=== PATIENT | male | born 1945 | race Caucasian/White ===

== ENCOUNTER → 2016-06-02 | Outpatient (CLI) | payer OTHER ==
[~2016-06-02] MED LIST: ALLO100T PO; APIX1TAB3 PO; ASPI81TA28 PO; DRON400T PO; INDO75CA PO; LISI-725 PO; METO25TA3 PO; METO50TA7 PO; RIVA1TAB4 PO
[2016-06-02 17:41] LABS: HEMATOCRIT 42.3 % (42-52); MEAN CELL VOLUME 87.9 fL (80-100); MEAN CORPUSCULAR HEMOGLOBIN 30.6 pg (25-34); MEAN CORPUSCULAR HGB CONC 34.8 g/dl (32-36); MEAN PLATELET VOLUME 10.6 fL (7.4-10.4); PLATELET COUNT 217 K/uL (130-400); RED BLOOD COUNT 4.81 M/uL (4.7-6.1); WHITE BLOOD COUNT 6.63 K/uL (4.8-10.8)
[2016-06-02 17:58] LABS: BLOOD UREA NITROGEN 16 mg/dl (7-18); BUN/CREATININE RATIO 11.5 (10-20); CALCIUM 8.9 mg/dl (8.5-10.1); CARBON DIOXIDE 29 mmol/L (21-32); CHLORIDE 104 mmol/L (98-107); GLUCOSE 71 mg/dl (70-99); SODIUM 140 mmol/L (136-145)
== END | disposition home or self-care (01) ==
LOC: C.LABBFT 14:36
PROVIDERS: ATTEND Internal Medicine Cardiovascular Disease
DX: I48.92 Unspecified atrial flutter (principal)

== ENCOUNTER → 2016-06-23 | Day surgery (SDC) | payer OTHER ==
[~2016-06-23] VITALS: Ht 180.3 cm; Wt 78.0 kg
[~2016-06-23] MED LIST changes: +PROPOFOL IV EMULSION 10 MG/ML 20 ML VIAL IV ONE
[2016-06-23 06:54] VITALS: BP 130/97; PULSE 115; TEMP 36.4; O2SAT 98; Ht 180.3 cm; Wt 78.0 kg
[2016-06-23 07:15] VITALS: BP 135/87; PULSE 92; O2SAT 100
[2016-06-23 07:17] VITALS: BP 97/70; PULSE 73; O2SAT 100
--- NOTE | 2016-06-23 07:18 | History & Physical Bridge Note ---
H&P Re-Evaluation Bridge Note: I have examined the patient, reviewed the History & Physical and in the interval since the performance of the History & Physical I have noted the following changes of clinical significance: No changes noted. Confirmed that there has been no interruption in anticoagulation.
[2016-06-23 07:20] VITALS: BP 100/69; PULSE 74; O2SAT 100
--- NOTE | 2016-06-23 07:22 | Cardiology Procedure Brief Nt ---
Preliminary Cardiology Note Procedure Date Jun 23, 2016. Pre-Procedure Diagnosis atrial flutter with RVR Post-Procedure Diagnosis same, converted to sinus Procedure(s) Performed DC CV Nursing Program Manager Linda Systems Integration Manager(s) none Estimated Blood Loss non Preliminary Findings 100 J synchronized converted to sinus Sedation with Dr. Ceron of Anesthesiology. 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
--- NOTE | 2016-06-23 07:26 | Discharge Instructions ---
Discharge Instructions Visit Reason for Visit: Atrial Flutter for cardioversion Discharge Discharge Diagnosis / Problem: Atrial flutter converted to sinus rhythm Discharge Goals Goal(s): Therapeutic intervention Medications Restart Stopped Medication(s): Resume your usual medications as prescribed. Activity Recommendations Activity Limitations: as noted below Anesthesia . Post Anesthesia Instructions: If you have had General Anesthesia or IV Sedation: * Do not drive today. * Resume driving when surgeon permits. * Do not make important decisions or sign legal documents today. * Call surgeon for: 1. Temperature elevations greater than 101 degrees F. 2. Uncontrollable pain. 3. Excessive bleeding. 4. Persistent nausea and vomiting. 5. Medication intolerance (nausea, vomiting or rash). * For nausea and vomiting use only clear liquids such as: tea, soda, bouillon until nausea subsides, then gradually increase diet as tolerated. * If you have any concerns or questions, call your surgeon's office. If physician is unavailable and it is an emergency, call 911 or go to the nearest emergency room. . Instructions / Follow-Up Instructions / Follow-Up ACTIVITY RECOMMENDATIONS: * May resume driving tomorrow. SPECIAL CARE: * May apply burn ointment for skin irritation. * Please contact physician for any lightheadedness, dizziness or palpitations. Diet Recommendations Recommended Home Diet: resume previous diet Procedures Procedures Performed: Electrical cardioversion Pending Studies Studies pending at discharge: no Medical Emergencies . Who to Call and When: Medical Emergencies: If at any time you feel your situation is an emergency, please call 911 immediately. . Non-Emergent Contact Non-Emergency issues call your: Hand Loom Weaver . . "Provider Documentation" section prepared by David Chen.
--- NOTE | 2016-06-23 07:48 | CARDIOVERSION ---
DATE OF OPERATION: 06/23/2016 DATE OF PROCEDURE: 06/23/2016. TIME: 8:38 a.m. PROCEDURE: Direct current cardioversion. INDICATIONS: Atrial flutter with rapid ventricular response. CONSENT: Informed written consent was obtained prior to the procedure. PROCEDURAL DETAILS: Sedation was provided by Dr. Ceron of anesthesiology. This was administered after performing a time out. Then in a synchronized fashion, 100 joules were administered and successfully converted atrial flutter to sinus rhythm. He tolerated the procedure well. Once he awakened from sedation, he was able to move all 4 extremities. He was hemodynamically stable. He had no symptoms. PLAN: Continue anticoagulation without interruption for at least 4 weeks however long-term anticoagulation will likely be continued. Continue antiarrhythmic therapy in the form of Multaq. He will followup in the office for evaluation in the next few weeks. I attest to the content of the Intraoperative Record and any orders documented therein. Any exceptio ns are noted below.
--- NOTE | 2016-06-23 07:48 | Anesthesiology Progress Note ---
Anesthesia Post Op Note Date & Time Jun 23, 2016 at 07:49 Vital Signs Pain Intensity: 0 Vital Signs Past 12 Hours Date Time Temp Pulse Resp B/P Pulse Ox O2 Delivery O2 Flow Rate FiO2 06/23/16 07:45 74 16 94/66 97 Room Air 06/23/16 07:40 74 16 97/74 96 Room Air 06/23/16 07:20 67 16 104/65 96 Room Air 06/23/16 07:20 74 16 100/69 100 Nasal Cannula 4 06/23/16 07:17 73 16 97/70 100 Nasal Cannula 4 06/23/16 07:15 92 16 135/87 100 Nasal Cannula 4 06/23/16 06:54 36.4 115 16 130/97 98 Room Air Notes Mental Status: alert / awake / arousable, participated in evaluation Pt Amnestic to Procedure: Yes Nausea / Vomiting: adequately controlled Pain: adequately controlled Airway Patency, RR, SpO2: stable & adequate BP & HR: stable & adequate Hydration State: stable & adequate Anesthetic Complications: no major complications apparent
[2016-06-23 08:30] VITALS: BP 155/95; PULSE 78; O2SAT 97
== END | disposition home or self-care (01) ==
LOC: C.CATH 06:28
PROVIDERS: ATTEND Internal Medicine Cardiovascular Disease
DX: I48.92 Unspecified atrial flutter (principal); I51.9 Heart disease, unspecified; I34.0 Nonrheumatic mitral (valve) insufficiency; E78.00 Pure hypercholesterolemia, unspecified; I10 Essential (primary) hypertension; D64.9 Anemia, unspecified; H69.80 Other specified disorders of Eustachian tube, unspecified ear; M10.9 Gout, unspecified; R31.29 Other microscopic hematuria; Z79.01 Long term (current) use of anticoagulants

== ENCOUNTER → 2017-03-23 | Outpatient (CLI) | payer OTHER ==
[~2017-03-23] MED LIST changes: -ASPI81TA28 PO; -INDO75CA PO; -METO50TA7 PO; -PROPOFOL IV EMULSION 10 MG/ML 20 ML VIAL IV ONE; -RIVA1TAB4 PO
[2017-03-23 12:17] LABS: HEMATOCRIT 44.2 % (42-52); MEAN CELL VOLUME 92.5 fL (80-100); MEAN CORPUSCULAR HGB CONC 34.6 g/dl (32-36); MEAN PLATELET VOLUME 10.2 fL (7.4-10.4); PLATELET COUNT 214 K/uL (130-400); RED BLOOD COUNT 4.78 M/uL (4.7-6.1); WHITE BLOOD COUNT 6.33 K/uL (4.8-10.8)
[2017-03-23 13:12] LABS: ALT/SGPT 37 U/L (12-78); AST/SGOT 24 U/L (15-37); BLOOD UREA NITROGEN 13 mg/dl (7-18); BUN/CREATININE RATIO 11.8 (10-20); CALCIUM 9.2 mg/dl (8.5-10.1); CARBON DIOXIDE 26 mmol/L (21-32); CHLORIDE 106 mmol/L (98-107); CREATININE 1.13 mg/dl (0.60-1.40); GLUCOSE 91 mg/dl (70-99); POTASSIUM 4.9 mmol/L (3.5-5.1); SODIUM 140 mmol/L (136-145)
== END | disposition home or self-care (01) ==
LOC: C.LABBFT 08:35
PROVIDERS: ATTEND Internal Medicine Cardiovascular Disease
DX: I10 Essential (primary) hypertension (principal); I48.92 Unspecified atrial flutter; I34.0 Nonrheumatic mitral (valve) insufficiency; I42.9 Cardiomyopathy, unspecified

== ENCOUNTER → 2017-09-05 | Outpatient (CLI) | payer OTHER ==
[2017-09-05 12:06] LABS: BASO % 0.5 %; BASO ABS # 0.03 K/uL (0-0.2); EOS % 0.8 %; EOS ABS # 0.05 K/uL (0-0.5); HEMATOCRIT 43.2 % (42-52); HEMOGLOBIN 15.6 g/dL (14.0-18.0); IG# 0.02 K/uL (0.00-0.02); LYMPH % 27.9 %; LYMPH ABS # 1.71 K/uL (1.2-3.4); MEAN CELL VOLUME 90.6 fL (80-100); MEAN CORPUSCULAR HEMOGLOBIN 32.7 pg (25-34); MEAN CORPUSCULAR HGB CONC 36.1 g/dl (32-36); MEAN PLATELET VOLUME 9.6 fL (7.4-10.4); MONO % 8.8 %; MONO ABS # 0.54 K/uL (0.11-0.59); NEUT % 61.7 %; NEUT ABS # 3.78 K/uL (1.4-6.5); PLATELET COUNT 265 K/uL (130-400); RED CELL DISTRIBUTION WIDTH CV 12.8 % (11.5-14.5); RED CELL DISTRIBUTION WIDTH SD 42.4 fL (36.4-46.3); WHITE BLOOD COUNT 6.13 K/uL (4.8-10.8)
[2017-09-05 12:51] LABS: ALBUMIN 4.2 gm/dl (3.4-5.0); ALT/SGPT 36 U/L (12-78); AST/SGOT 21 U/L (15-37); BLOOD UREA NITROGEN 16 mg/dl (7-18); CALCIUM 9.4 mg/dl (8.5-10.1); CARBON DIOXIDE 29 mmol/L (21-32); CHOLESTEROL 126 mg/dl (0-200); CREATININE 1.27 mg/dl (0.60-1.40); GLUCOSE 85 mg/dl (70-99); POTASSIUM 4.3 mmol/L (3.5-5.1); SODIUM 139 mmol/L (136-145)
[2017-09-05 12:55] LABS: ALKALINE PHOSPHATASE 93 U/L (45-117); LDL CHOLESTEROL CALCULATED 64 mg/dl; TOTAL PROTEIN 8.2 gm/dl (6.4-8.2)
== END | disposition home or self-care (01) ==
LOC: C.LABBFT 10:10
PROVIDERS: ATTEND Physician Assistant Medical
DX: I42.9 Cardiomyopathy, unspecified (principal); M10.9 Gout, unspecified; E78.00 Pure hypercholesterolemia, unspecified; Z79.899 Other long term (current) drug therapy

== ENCOUNTER 2018-09-13 06:21 | Observation (INO) ==
[2018-09-13] MEDS ORDERED: fentaNYL citrate 100 MCG/2 ML VIAL ONE (07:53)
[2018-09-13] MEDS ORDERED: MIDAZOLAM HCL 5 MG/ML 1 ML VIAL ONE (07:54)
--- NOTE | 2018-09-13 07:55 | Pre Anesthesia Assessment ---
Date of Service September 13, 2018 Pre Sedation Assessment Vital Signs Temp Pulse Resp BP Pulse Ox 09/13/18 07:06 36.7 C 111 H 16 165/113 H 98 Cardiovascular + tachycardic Respiratory + respiratory effort normal Pre-Sedation Airway Assessment Smoking Status: Never smoker Hx Sleep Apnea: No Hx Difficult Intubation: No Short, Thick Neck: No Thyromental Distance: > or= 3.5 Finger Breadths Oral Cavity: + WNL Mallampati Class: III ASA: ASA3 NPO Status Date of Last Intake of Fluids: 09/12/18 Time of Last Intake of Fluids: 18:00 Date of Last Intake of Solid Food: 09/12/18 Time of Last Intake of Solid Foods: 18:00 Procedure Planning Contraindications for Sedation: none Current Medications Reviewed: Yes Notes The planned sedation has been discussed with the patient. Informed Consent was obtained. I have identified the patient, determined the appropriateness of sedation and have assessed the patient immediately prior to the procedure. All medicine(s) and interventions are by my order.
[2018-09-13] MEDS ORDERED: HEPARIN SOD (PORCINE) 1000 UNIT/ML 10 ML VIAL ONE (08:24)
[2018-09-13] MEDS ORDERED: ISOPROTERENOL 200 MCG / 50ML D5W IV ONE (09:23)
--- NOTE | 2018-09-13 09:47 | Post Operative Brief Note ---
Cardiology Brief Post Op Date of Surgery September 13, 2018 Pre & Post Diagnosis Operation Date: 09/13/18 07:30 <No data on this case meets the specified criteria> Procedure EPS and ablation of typical right atrial flutter from right femoral danni access Porcelain Technician Ankush Tobin MD Marketing Proposal Specialist none Estimated Blood Loss 10 Findings Consistent with Post-Op Diagnosis Typical right atrial isthmus-dependent flutter some reduced AV todd conduction no inducible ischemia at the conclusion of the case Complications none Disposition Accompanied Patient To Recovery: No Disposition: PCU Overlapping Procedure I was immediately available: during the entire case.
[2018-09-13] MEDS ORDERED: ACETAMINOPHEN 325 MG TAB PO PRN (09:48)
[2018-09-13] MEDS ORDERED: OXYCODONE HCL IR 5 MG TAB (IMMEDIATE RELEASE) PO PRN (11:31)
--- NOTE | 2018-09-13 15:56 | Procedure Note ---
Procedure Note Date of Service September 13, 2018 Note Procedure performed: Ablation of SVT, complete electrophysiologic testing including pacing from the left atrium via the coronary sinus, 3 dimensional electro anatomical mapping of tachycardia, program stimulation on and off isoproterenol for arrhythmia induction Staff drone operator: Ankush Tobin MD Indication: The patient is a 73-year-old gentleman with a history of atrial flutter who presents for electrophysiologic testing and possible ablation Procedure in detail: The patient was informed of the risks benefits and alternatives to the intended procedure. He understood which proceed. He was taken to the electrophysiology suite in a fasting state. Conscious sedation was administered per protocol the patient was monitored electrocardiographically throughout today's procedure. The right femoral area was prepped and draped in usual sterile fashion. This area was anesthetized using subcutaneous administration of lidocaine solution. The right femoral vein was then accessed 3 times using modified Selinger technique. Sheaths were placed over guidewires at this site used to facilitate passage of the EP catheters to the respective chambers under fluoroscopic guidance. This included right ventricular coronary sinus and roving right atrial catheter. Electro anatomical mapping was then performed in order to reduce the mechanism of the arrhythmia. Once identified radiofrequency lesions were placed in a linear fashion through the caval tricuspid isthmus until the tachycardia terminated. Repeat electro anatomical mapping as well as baseline testing and program stimulation on and off isoproterenol for arrhythmia induction was then performed. At the conclusion of the case the sheaths and catheters were removed. Hemostasis was achieved at the access sites using manual pressure. The patient tolerated procedure well. There were no immediate complications. Findings: Tachycardia cycle length was 260 milliseconds Electro anatomical mapping revealed activation company nearly the entire cycle length in the right atrium. There appeared to be a counter-clockwise typical right atrial flutter. Concealed atrial entrainment was achieved from both the medial and lateral caval tricuspid isthmus Manifest entrainment with a long post pacing interval was noted with pacing from the distal coronary sinus Ablation: And irrigated 3.5 millimeter radiofrequency ablation catheter was advanced to the area of the cava tricuspid isthmus. Lesions were placed in a linear fashion through the caval tricuspid isthmus in a power limited mode until the tachycardia terminated. Repeat electro anatomical mapping as well as differential pacing from both the medial lateral aspects of the caval tricuspid isthmus suggested bidirectional block through the caval tricuspid isthmus Post ablation intervals: Cycle length in the atrium 930 milliseconds Cycling his the ventricle 932 milliseconds SC interval 176 milliseconds QRS duration 80 milliseconds QT interval 430 milliseconds corrected QT interval 445 AH interval 126 milliseconds HV interval 44 milliseconds AV Wenckebach in the baseline state occurred at 520 milliseconds There was no significant retrograde conduction with pacing from the ventricle Programmed stimulation revealed the AV node effective refractory period to be 470 milliseconds Arrhythmia induction: None to ablation attempted arrhythmia induction was performed with pacing from both the medial and lateral aspects of the caval tricuspid isthmus using burst atrial pacing down to cycle length of 240 milliseconds. This was performed on and off isoproterenol. No tachycardia was inducible. Impression: Successful creation of bidirectional block through the caval tricuspid isthmus rendering typical isthmus dependent right atrial flutter noninducible Prolonged refractoriness of the AV node in the baseline sedated state with some improvement on isoproterenol Normal baseline intracardiac intervals No evidence of dual AV node physiology or accessory pathway conduction No retrograde conduction in the baseline state Coding
--- NOTE | 2018-09-13 16:04 | Discharge Summary ---
Date of Service September 13, 2018 Admission HPI Patient is a 73-year-old gentleman with a history of atrial flutter who presents for electrophysiologic testing and possible ablation Principal Diagnosis Principal Diagnosis Atrial flutter Discharge Exam Evaluation of the femoral access site a not reveal any evidence of bleeding or hematoma Discharge Data Allergies Allergy/AdvReac Type Severity Reaction Status Date / Time No Known Allergies Allergy Unverified 03/11/16 06:40 Procedures Performed Operation Date: 09/13/18 07:30 Actual Procedures p EPS + Ablation for SVT Flutter - Hima Tobin MD s 3D Mapping (Carto) - Hima Tobin MD s LA Pacing (Add-On) - MD sherice Johnson Drug Stimulation - Hima Tobin MD Ordered Studies 09/13/18 06:46 CL Cath Imgs for PACS use only Routine 09/13/18 07:00 EP Lab Images for PACS ONCE Hospital Course (1) Atrial flutter: Patient underwent electrophysiologic testing and ablation typical isthmus dependent right atrial flutter. There were no inducible arrhythmias at the conclusion of the case and there appeared to be bidirectional block through the caval tricuspid isthmus. Subsequent to the procedure the patient was supine for 4 hours and later ambulated without evidence of bleeding at the access site. He was discharged home with instructions to refrain from lifting anything over 10 pounds for period of 5 days. He will follow up in our office in a period of 1 month. He will resume all his medications including his anticoagulation tomorrow morning. Total Time Total Time Spent Total Time Spent (In Minutes): 10 Discharge Plan Discharge Items Patient Disposition: Home - Self-Care Reason For Visit: Atrial Flutter Discharge Diagnosis: Atrial flutter Condition: Good Discharge Goals: Therapeutic intervention Activity: Per 'Additional Instructions' section Lifting: No more than 10 pounds Lifting Comment: No lifting >10# for 5 days Bathing: No limitations Driving/Machine Use: Resume 1 day after discharge Non-emergency contact: Retail Loss Prevention Investigator Call non-emergency contact if: you have any medication questions Follow-up/Referrals: Hima Esteves MD [Primary Care Provider] - Diet: Heart Healthy Addtl Provider Instructions: Start Eliquis again tomorrow Prescriptions: Continued ALLOPURINOL (ZYLOPRIM) 100 MG tablet 2 tab PO DAILY 30 Days Qty: 60 RF: 5 Lisinopril (Zestril) 20 MG tablet 20 mg PO DAILY Qty: 0 RF: 0 APIXABAN (ELIQUIS) 5 MG tablet 5 mg PO BID Qty: 0 RF: 0 Metoprolol Succ (Toprol Xl) (Toprol-Xl) 25 MG HFYUS-CCW-ABM 50 mg PO DAILY Qty: 30 RF: 0 atorvastatin 20 mg Tablet 20 mg PO DAILY RF: 0 ciclopirox 8 % Solution 1 applic TOPICAL HS RF: 0 Stand-Alone Forms: [facility] Discharge Orders: Discharge Order (Routine); Ordered 09/13/18 Ordered By: Hima Tobin Admission Data Admit Date/Time: 09/13/18 09:48 Attending Provider: Hima Tobin Admit Provider: Hima Tobin Primary Care Provider: Hima Esteves Service: Telemetry Other Interventions: Discharge Summary Assessment (RN) Last Done: 09/13/18 15:05 DC Date/Time DO NOT enter until pt leaves facility: 09/13/18 15:46
== END 2018-09-13 15:46 | disposition home or self-care (01) ==
LOC: ASU 06:21 → 2S 06:21

== ENCOUNTER 2019-03-14 10:15 | Inpatient (IN) ==
[2019-03-14] MEDS ORDERED: METOPROLOL TARTRATE 1 MG/ML VIAL IV PRN ×3 (10:27→19:42)
[2019-03-14] MEDS ORDERED: SODIUM CHLORIDE 0.9% 500 ML IV SCH (10:30)
[2019-03-14] MEDS ORDERED: ADENOSINE IV SOLN 3 MG/ML 2 ML VIAL IV ONE (10:32)
[2019-03-14 11:45] LABS: Basophils # (auto) 0.01 K/uL (0-0.2); Basophils % (auto) 0.1 %; Eosinophils # (auto) 0.02 K/uL (0-0.5); Eosinophils % (auto) 0.2 %; Hematocrit (blood only) 44.5 % (42-52); Hemoglobin 15.8 g/dL (14.0-18.0); Immature Granulocytes # (auto) 0.03 K/uL (0.00-0.02); Immature Granulocytes % (auto) 0.4 %; Lymphocytes # (auto) 1.35 K/uL (1.2-3.4); Lymphocytes % (auto) 16.6 %; Mean Corpuscular Hemoglobin 32.2 pg (25-34); Mean Corpuscular Hgb Conc 35.5 g/dL (32-36); Mean Corpuscular Volume 90.6 fL (80-100); Mean Platelet Volume 9.9 fL (7.4-10.4); Monocytes # (auto) 0.97 K/uL (0.11-0.59); Monocytes % (auto) 11.9 %; Neutrophils # (auto) 5.77 K/uL (1.4-6.5); Neutrophils % (auto) 70.8 %; Platelet Count 233 K/uL (130-400); RDW Coefficient of Variation 12.9 % (11.5-14.5); RDW Standard Deviation 42.5 fL (36.4-46.3); Red Blood Count 4.91 M/uL (4.7-6.1); White Blood Count 8.15 K/uL (4.8-10.8)
[2019-03-14 11:50] LABS: Albumin Level 3.7 gm/dl (3.4-5.0); BUN Creatinine Ratio 12.3 (10-20); Calcium 8.9 mg/dl (8.5-10.1); Creatinine Clr Calc Pharmacy 47.3 ml/min; Est GFR (African American) 54.1; Est GFR (Non-African American) 46.7; Magnesium 2.1 mg/dl (1.8-2.4); Potassium 4.7 mmol/L (3.5-5.1)
[2019-03-14 12:03] LABS: Albumin Globulin Ratio 0.9 (0.9-2); Bilirubin,Total 0.8 mg/dl (0.2-1); Globulin 3.9 gm/dl (2.5-4.0); Phosphorus 2.4 mg/dl (2.5-4.9); Thyroid Stimulating Hormone 1.93 uIu/ml (0.300-4.500); Total Protein 7.6 gm/dl (6.4-8.2); Troponin I 0.086 ng/ml (0-0.045)
[2019-03-14] MEDS ORDERED: SODIUM CHLORIDE 0.9% 1000ML 500 ML IV ONE (12:11)
[2019-03-14] MEDS ORDERED: METOPROLOL SUCC 50MG EXT REL TAB PO STA (12:11)
[2019-03-14] MEDS ORDERED: ASPIRIN CHEW 324 MG PO STA (12:39)
[2019-03-14] MEDS ORDERED: ACETAMINOPHEN 325 MG TAB PO PRN (14:22)
--- NOTE | 2019-03-14 14:38 | History & Physical Report ---
Date of Service March 14, 2019 Assessment & Plan (1) Atrial flutter: Appears to be an atrial flutter to me. EKGs shows various rates of 100, 150, and 200. No clear atrial flutter waves, but EKGs are fairly low amplitude. EKGs do show ST depressions in the lateral leads when the HR is going 150 and 200 bpm. Presently, HR is ~100 bpm and fairly steady. - Will get one additional troponin to rule out acute coronary event, though I think it is unlikely given his lack of symptoms. - Consult Dr. Tobin for further evaluation and treatment - Metoprolol PRN (2) Confusion: Somewhat unclear pair of episodes with the patient's stating he was speaking gibberish and shaking. Both spontaneously resolved. No loss of consciousness and no noted focal deficits during the spells. Ddx includes seizure vs. TIA; however, I believe that transient hypotension from his fast HR is the most likely cause. Presently back to baseline. - Monitor in the context of his HR and BP (3) GENE (acute kidney injury): Baseline Cr ~1.1, Cr up to 1.45 on admission. Pre-renal vs. concern for ATN if he had a transient episode of hypotension from his fast rate. - Received 1.5 L of IV fluids in the ED - Mental status normal; I believe he can remain hydrated on his own and as long as HR is ~100, his perfusion appears fine. - Trend Cr (4) Hypertension: Normally well-controlled. Presently 144/105 in chart. Was 115/80 while I was in the room. - Hold home lisinopril for GENE - Continue beta-beth - Monitor (5) Hyperlipemia: - Continue home med (6) Gout: - Continue home med (7) DVT prophylaxis: On apixaban for his atrial flutter History of Present Illness Primary Care Provider: Ankush Esteves MD 74yo M w/ hx of HTN, gout, and aflutter s/p ablation who presents with possible return of aflutter. He was in his normal state of health this morning, when he had a spell while sitting with his . She reports that he tried to respond to something she said, but spoke in gibberish instead of intelligible speech and that he also had some tremors at the time. The episode lasted for a few minutes, then resolved. He had another episode that was less severe and lasted a shorter duration as well. The reports that he never lost consciousness and never had any fall with the two episodes. They called an ambulance after speaking with their PCP's RN. The paramedics found him to be in a fast SVT with rates as high as 180, and pushed adenosine which resulted in his HR going down to ~100. In the ED, his HR went up to 200 again with another push of adenosine which caused his rate to stay ~100 bpm. He feels well at this point and denies any loss of consciousness, chest pain, palpitations, shortness of breath, dizziness, diaphoresis, or other symptoms. He has only a vague recollection of these episodes, thinking they were yesterday instead of this morning. Allergies Allergy/AdvReac Type Severity Reaction Status Date / Time No Known Allergies Allergy Verified 03/14/19 11:04 Home Medications Home Medications Medication Instructions Recorded Confirmed Type allopurinol 100 mg tablet 200 mg PO DAILY #180 tab 12/25/18 03/14/19 History atorvastatin 20 mg tablet 20 mg PO QPM tab 12/25/18 03/14/19 History lisinopril 20 mg tablet 20 mg PO DAILY #90 tab 12/25/18 03/14/19 History metoprolol succinate ER 50 mg 50 mg PO DAILY tab 12/25/18 03/14/19 History tablet,extended release 24 hr apixaban [Eliquis] 5 mg PO BID 03/14/19 03/14/19 History Past Med/Surg History Medical History Atrial flutter Gout Hyperlipemia Hypertension Surgical History H/O cardiac radiofrequency ablation Family History Father Gout Social History Preferred Language: Armenian Communication Ability: Effective Efficiency Analyst Required: No Beliefs That Will Affect Care: None Current Living Situation: Spouse Other Information That Helps Us Care for You: No Feels Safe at Home: Yes Safety Concerns: Feels Safe At This Time Smoking Status: Never smoker Do You Dip or Chew Tobacco: No ; Second Hand Exposure: No ; Tobacco Cessation Education Requested by Patient: No Hx Alcohol Use: Yes Alcohol type: beer Hx Substance Use: No Review of Systems Review of Systems: All systems reviewed & are unremarkable except as noted in HPI & below Physical Exam Constitutional: WD/WN, vitals as above Eyes: EOM intact bilaterally; no conjunctival abnormality ENMT: external ear and nose normal, oropharynx normal Neck: trachea midline, no thyromegaly normal visual inspection Respiratory: normal respiratory effort, lungs clear to auscultation no respiratory distress Cardiovascular: Rate/Rhythm: regular rhythm and + tachycardic Heart Sounds: normal S1 and normal S2; no murmur Vessels: no JVD Extremities: no edema Gastrointestinal (Abdomen): Inspection/Auscultation: abdomen normal to inspe ction; abdomen not distended Musculoskeletal: no cyanosis or clubbing, extremities motor strength 5/5 Skin: no rashes, warm and dry Neurologic: moves all extremities and awake Psychiatric: Orientation: alert, oriented to person and cooperative Results & Data Vital Signs (Past 12 Hours) Vital Signs Temp Pulse Resp BP Pulse Ox 03/14/19 13:45 90 13 117/78 03/14/19 13:31 104 H 19 03/14/19 13:30 105 H 19 140/97 03/14/19 13:15 100 H 14 110/72 03/14/19 13:00 105 H 21 146/92 H 03/14/19 12:45 104 H 18 116/65 03/14/19 12:30 103 H 20 101/68 03/14/19 12:16 105 H 16 03/14/19 12:15 103 H 18 117/76 03/14/19 12:01 103 H 20 03/14/19 12:00 103 H 13 96/77 L 03/14/19 11:45 103 H 10 L 116/78 100 03/14/19 11:31 102 H 17 100 03/14/19 11:30 102 H 13 103/75 100 03/14/19 11:15 101 H 15 106/90 100 03/14/19 11:01 102 H 17 100 03/14/19 11:00 101 H 10 L 116/78 100 03/14/19 10:45 103 H 13 118/83 97 03/14/19 10:42 104 H 15 124/81 100 03/14/19 10:30 195 H 22 93 03/14/19 10:23 197 H 16 96 03/14/19 10:22 200 H 18 93/73 L 03/14/19 09:57 37.1 C 200 H 16 93/73 L 100 PG Care Time/CCT Total # of Minutes Spent Total Time Spent with Patient: Total time spent is greater than 50% in coordination of care (as documented) at patient's floor/unit and/or counseling patient:
[2019-03-14] MEDS ORDERED: INFLUENZA VACCINE HIGH DOSE 65+ 0.5 ML SYR IM ONE (16:15)
[2019-03-14] MEDS ORDERED: INFLUENZA ADMINISTRATION CHARGE ONE (16:15)
[2019-03-14] MEDS: POT PHOSPHATE MONOBASIC W/ SOD TAB PO SCH ×2 (16:40→20:32)
--- NOTE | 2019-03-14 16:40 | Cardiology Consultation ---
Date of Consultation March 14, 2019 Assessment & Plan (1) SVT (supraventricular tachycardia): Patient's initial arrhythmia was narrow complex and quite rapid. He did not respond to adenosine but did appear to respond to beta-blockers or possibly simply degenerated into what appears to be in atrial fibrillation. It is very possible that the initial arrhythmia represented an atrial flutter. Whether this is an isthmus dependent right atrial flutter cannot be determined by the tracing. The heart rate is unusual for atypical right atrial flutter. It is possible the prior ablation of the cavo-tricuspid isthmus resulted in development of substrate for other right atrial flutters. It is also possible outpatient record that he may have had more than 1 atrial arrhythmia leading up to his ablation. He now seems to be in a rhythm more consistent with atrial fibrillation. It is possible that this also represents an atypical atrial flutter. Whether he has had some additional atrial arrhythmias over the past few months is unclear. Currently his heart rate is not very high. He certainly is not symptomatic from the current arrhythmia. It is possible that he goes in and out of rhythm problems or has had some sustained arrhythmia for few months that has not been identified. At this point would seem reasonable to continue him on metoprolol, perhaps at a slightly higher dose. I think I would advocate for metoprolol succinate 75 mg per day taken possibly a 50 mg in the morning and 25 mg in the evening. He appears to have been continued on Eliquis since the time of his ablation. This may often opportunity for cardioversion tomorrow if he is not return to sinus rhythm on his own. Going forward I think we will need to identify symptoms associated with his arrhythmias prior to more aggressive therapy. If he continues to have his current arrhythmia and controlled rate, perhaps no additional intervention is required other than beta-blockers and anticoagulation. (2) Elevated troponin: Mildly elevated. On doubt early related to demand ischemia given his rapid heart rate in the only mild elevation. This will be monitored overnight. Do not believe he requires any additional treatment currently. No current chest pain. History of Present Illness Reason for Consultation: Tachycardia Requesting Physician: Andrea Attending Physician: William Mendez MD History of Present Illness The patient is a 74-year-old gentleman with a history atrial flutter who underwent catheter based therapy in September 2018. Since that time the patient has not had any clinical recurrence of atrial arrhythmias. It seems that this morning the patient developed some unusual symptoms noticed by his . Unfortunately, the patient has an element of dementia and was not able to provide a reliable history. History was primarily provided by his and son. It seems that after breakfast the patient developed some confused speech. According to his he through his head back and later begin have some shaking. He did not lose consciousness. He was responsive but she had difficulty understanding his speech. Patient appeared to be unwell and she eventually contacted 1st responders who discovered him to be tachycardic. Patient did report some symptoms of dizziness. He did not endorse symptoms of chest discomfort or a sense of a racing heartbeat. He did not endorse symptoms of dyspnea. According to his family the patient has been active recently. He does some yd work and has an element of fatigue but did not appear to have other symptoms of exertional chest pain or dyspnea. There has been no documentation of other episodes of tachycardia. He did endorse some symptoms of dizziness at times, but there does not appear to have been any syncope or sense of palpitations. It seems that when EMS arrived he was in a tachycardia. The patient was administered adenosine in route without effect. In the emergency room he was administered beta-blockade with an acute transition in his heart rate. Cur rently he is feeling well. He states that he is feeling 90% but could not characterize this statement any further. Allergies Allergy/AdvReac Type Severity Reaction Status Date / Time No Known Allergies Allergy Verified 03/14/19 11:04 Home Medications Home Medications Medication Instructions Recorded Confirmed Type allopurinol 100 mg tablet 200 mg PO DAILY #180 tab 12/25/18 03/14/19 History atorvastatin 20 mg tablet 20 mg PO QPM tab 12/25/18 03/14/19 History lisinopril 20 mg tablet 20 mg PO DAILY #90 tab 12/25/18 03/14/19 History metoprolol succinate ER 50 mg 50 mg PO DAILY tab 12/25/18 03/14/19 History tablet,extended release 24 hr apixaban [Eliquis] 5 mg PO BID 03/14/19 03/14/19 History Patient History Medical History Atrial flutter Gout Hyperlipemia Hypertension Surgical History H/O cardiac radiofrequency ablation Family History Father Gout Social History Preferred Language: Cameroonian Communication Ability: Effective Multifocal Button Generator Required: No Beliefs That Will Affect Care: None Current Living Situation: Spouse Feels Safe at Home: Yes Smoking Status: Never smoker Second Hand Exposure: No ; Hx Alcohol Use: Yes Alcohol type: beer Hx Substance Use: No Review of Systems Review of Systems: Unobtainable due to cognitive status Physical Exam Physical Exam: The patient is alert and oriented. Mood and affect appeared normal. He answered all questions appropriately. HEENT: Pupils are equal and reactive to light and accommodation. Extraocular movements are intact. The sclerae are anicteric. Neuro: Cranial nerves intact Neck: Patient's neck is supple. He has palpable carotid pulses bilaterally without bruits on auscultation. There is no evidence of jugular venous distention. The thyroid is not enlarged. Lungs: Clear to auscultation bilaterally. He has good air movement without use of accessory muscles. No rales wheezes or rhonchi. Cardiac: Heart demonstrates an irregular rate and rhythm. Normal S1 and S2. No murmurs on examination. Pulses: The patient has palpable radial pulses bilaterally that are equal in intensity Extremities: There was no evidence of hypoperfusion. There is no cyanosis or clubbing. There is no edema. Skin: I did not appreciate any rashes on examination today. Results & Data Vital Signs (Past 12 Hours) Vital Signs Temp Pulse Pulse Resp BP BP Pulse Ox 03/14/19 14:27 106 H 20 144/104 H 97 03/14/19 13:45 90 13 117/78 03/14/19 13:31 104 H 19 03/14/19 13:30 105 H 19 140/97 03/14/19 13:15 100 H 14 110/72 03/14/19 13:00 105 H 21 146/92 H 03/14/19 12:45 104 H 18 116/65 03/14/19 12:30 103 H 20 101/68 03/14/19 12:16 105 H 16 03/14/19 12:15 103 H 18 117/76 03/14/19 12:01 103 H 20 11/07/19 12:00 103 H 13 96/77 L 03/14/19 11:45 103 H 10 L 116/78 100 03/14/19 11:31 102 H 17 100 03/14/19 11:30 102 H 13 103/75 100 03/14/19 11:15 101 H 15 106/90 100 03/14/19 11:01 102 H 17 100 03/14/19 11:00 101 H 10 L 116/78 100 03/14/19 10:45 103 H 13 118/83 97 03/14/19 10:42 104 H 15 124/81 100 03/14/19 10:30 195 H 22 93 03/14/19 10:23 197 H 16 96 03/14/19 10:22 200 H 18 93/73 L 03/14/19 09:57 37.1 C 200 H 16 93/73 L 100 Laboratory Results Abnormal Lab Results 03/14/19 03/14/19 10:33 10:33 WBC 8.15 RBC 4.91 Hgb 15.8 Hct 44.5 MCV 90.6 MCH 32.2 MCHC 35.5 RDW Std Deviation 42.5 RDW Coeff of [place] 12.9 Plt Count 233 MPV 9.9 Immature Gran % (Auto) 0.4 Neut % (Auto) 70.8 Lymph % (Auto) 16.6 [place] % (Auto) 11.9 Eos % (Auto) 0.2 Baso % (Auto) 0.1 Immature Gran # (Auto) 0.03 H Neut # (Auto) 5.77 Lymph # (Auto) 1.35 [place] # (Auto) 0.97 H Eos # (Auto) 0.02 Baso # (Auto) 0.01 Sodium 140 Potassium 4.7 Chloride 108 H Carbon Dioxide 27 Anion Gap 5.0 BUN 18 Creatinine 1.46 H Est Cr Clr Drug Dosing 47.3 Est GFR ( Amer) 54.1 Est GFR (Non-Af Amer) 46.7 BUN/Creatinine Ratio 12.3 Glucose 115 H Calcium 8.9 Phosphorus 2.4 L Magnesium 2.1 Total Bilirubin 0.8 AST 25 ALT 27 Alkaline Phosphatase 88 Troponin I 0.086 H* Total Protein 7.6 Albumin 3.7 Globulin 3.9 Albumin/Globulin Ratio 0.9 TSH 1.930 ECG Additional Comments: I reviewed the source images of his EKGs. PG Care Time/CCT Total # of Minutes Spent Total Time Spent with Patient: Total time spent is greater than 50% in coordination of care (as documented) at patient's floor/unit and/or counseling patient:
--- NOTE | 2019-03-14 17:14 | Emergency Department Note ---
Entered by Lynette Smith acting as a scribe for History of Present Illness General Chief complaint: Tachycardia Time Seen by Provider: 03/14/19 10:18 Source: patient History of Present Illness Provider complaint: light headedness Onset (ago): hour(s) 2 Location: head Radiation: non-radiation Pain Consistency: + constant Associated symptoms: + denies other symptoms; no chest pain, no nausea/vomiting and no shortness of breath The patient is a 74 y/o male with a past medical history of atrial flutter and cardio ablation, who presents to the emergency department via EMS for evaluation of constant light headedness and fatigue that began 2 hours ago. The patient states that he did not feel the palpation or heart racing today. EMS notes that they were unable to control his rate. The patient reports he is on blood thinners. His past medical history notes he had an EP study and cardio ablation 09/13/[address] Tobin[facility] cardiology. The patient denies shortness of breath, diet changes, chest pain, nausea, vomiting, and any other symptoms. Home Medications Home Medications Medication Instructions Recorded Confirmed Type allopurinol 100 mg tablet 200 mg PO DAILY #180 tab 12/25/18 03/14/19 History atorvastatin 20 mg tablet 20 mg PO QPM tab 12/25/18 03/14/19 History lisinopril 20 mg tablet 20 mg PO DAILY #90 tab 12/25/18 03/14/19 History metoprolol succinate ER 50 mg 50 mg PO DAILY tab 12/25/18 03/14/19 History tablet,extended release 24 hr apixaban [Eliquis] 5 mg PO BID 03/14/19 03/14/19 History Allergies Allergy/AdvReac Type Severity Reaction Status Date / Time No Known Allergies Allergy Verified 03/14/19 11:04 Past Med/Surg History Medical History Atrial flutter Gout Hyperlipemia Hypertension Surgical History H/O cardiac radiofrequency ablation Family History Father Gout Social History Preferred Language: Kittitian Communication Ability: Effective Stove Cleaner Required: No Beliefs That Will Affect Care: None Current Living Situation: Spouse Feels Safe at Home: Yes Smoking Status: Never smoker Second Hand Exposure: No ; Hx Alcohol Use: Yes Alcohol type: beer Hx Substance Use: No Review of Systems See HPI for pertinent positives & negatives. and A total of 10 systems reviewed and were otherwise negative Physical Exam Vital Signs Vital Signs - 24 hr 03/14/19 09:57 03/14/19 10:22 03/14/19 10:23 Temperature 37.1 C Temperature Source Oral Sepsis Recent Fever Within 48 Hours No Sepsis Action Taken by Nursing No Action Required Pulse Rate 200 H 200 H 197 H Pulse Rate from SpO2 Sensor 103 H Respiratory Rate 16 18 16 Blood Pressure 93/73 L 93/73 L Blood Pressure Mean 79 79 Blood Pressure Position Sitting Pulse Oximetry 100 96 Oxygen Delivery Method Nasal Cannula Oxygen Flow Rate 2 03/14/19 10:26 03/14/19 10:30 03/14/19 10:42 Temperature Temperature Source Sepsis Recent Fever Within 48 Hours Sepsis Action Taken by Nursing Pulse Rate 195 H 104 H Pulse Rate from SpO2 Sensor 99 H 104 H Respiratory Rate 22 15 Blood Pressure 124/81 Blood Pressure Mean 95 Blood Pressure Position Pulse Oximetry 93 100 Oxygen Delivery Method Room Air Oxygen Flow Rate 03/14/19 10:45 03/14/19 11:00 03/14/19 11:01 Temperature Temperature Source Sepsis Recent Fever Within 48 Hours Sepsis Action Taken by Nursing Pulse Rate 103 H 101 H 102 H Pulse Rate from SpO2 Sensor 101 H 102 H 103 H Respiratory Rate 13 10 L 17 Blood Pressure 118/83 116/78 Blood Pressure Mean 94 90 Blood Pressure Position Pulse Oximetry 97 100 100 Oxygen Delivery Method Oxygen Flow Rate 03/14/19 11:15 03/14/19 11:30 03/14/19 11:31 Temperature Temperature Source Sepsis Recent Fever Within 48 Hours Sepsis Action Taken by Nursing Pulse Rate 101 H 102 H 102 H Pulse Rate from SpO2 Sensor 101 H 103 H 101 H Respiratory Rate 15 13 17 Blood Pressure 106/90 103/75 Blood Pressure Mean 95 84 Blood Pressure Position Pulse Oximetry 100 100 100 Oxygen Delivery Method Oxygen Flow Rate 03/14/19 11:45 03/14/19 12:00 03/14/19 12:01 Temperature Temperature Source Sepsis Recent Fever Within 48 Hours Sepsis Action Taken by Nursing Pulse Rate 103 H 103 H 103 H Pulse Rate from SpO2 Sensor 102 H Respiratory Rate 10 L 13 20 Blood Pressure 116/78 96/77 L Blood Pressure Mean 90 83 Blood Pressure Position Pulse Oximetry 100 Oxygen Delivery Method Oxygen Flow Rate 03/14/19 12:15 03/14/19 12:16 03/14/19 12:30 Temperature Temperature Source Sepsis Recent Fever Within 48 Hours Sepsis Action Taken by Nursing Pulse Rate 103 H 105 H 103 H Pulse Rate from SpO2 Sensor Respiratory Rate 18 16 20 Blood Pressure 117/76 101/68 Blood Pressure Mean 89 79 Blood Pressure Position Pulse Oximetry Oxygen Delivery Method Oxygen Flow Rate 03/14/19 12:45 03/14/19 13:00 Temperature Temperature Source Sepsis Recent Fever Within 48 Hours Sepsis Action Taken by Nursing Pulse Rate 104 H 105 H Pulse Rate from SpO2 Sensor Respiratory Rate 18 21 Blood Pressure 116/65 146/92 H Blood Pressure Mean 82 110 Blood Pressure Position Pulse Oximetry Oxygen Delivery Method Oxygen Flow Rate GENERAL: Well appearing, well nourished, NAD, non-toxic. EYE EXAM: Normal conjunctiva. PERRL, no anisocoria and EOM's grossly intact w/o pain. OROPHARYNX: Moist mucus membranes. Grossly normal dentition. NECK: Supple, no nuchal rigidity, no adenopathy, non-tender. No signs of meningismus. LUNGS: Clear to auscultation. Normal chest wall mechanics. HEART: Tachycardic with regular rhythm. ABDOMEN: Abdomen soft, non-tender, normo-active bowel sounds, no masses, no rebound or guarding. BACK: No CVA TTP. SKIN: No rashes and no bruising. UPPER EXTREMITIES: Upper extremities are grossly normal. LOWER EXTREMITIES: No pitting edema. No calf pain. NEURO EXAM: A&O x3, cranial nerves II-XII grossly intact, normal speech, moves all 4 extremities on command w/o issue. Course 1021: Past medical records reviewed. The patient was evaluated in room A09. A complete history and physical exam was performed. 1205: I checked on the patient and he is feeling a bit better. 1237: I spoke with Dr. Mendez- [facility] hospitalist. He will evaluate for further management. 1300: I updated the patient on the treatment plan. Administered Medications Potassium Phosphate (Phospha 250 Neutral [id number] Mg) 1 tab PO QID YASMINE Stop: 03/15/19 16:59 Last Admin: 03/14/19 16:40 Dose: 1 tab Documented by: [id number] Discontinued Medications Adenosine (Adenosine) Confirm Administered Dose 30 mg IV .STK-MED ONE Stop: 03/14/19 10:33 Last Admin: 03/14/19 10:55 Dose: Not Given Documented by: [id number] Aspirin (Aspirin) 324 mg PO NOW STA Stop: 03/14/19 12:40 Last Admin: 03/14/19 13:24 Dose: 324 mg Documented by: [id number] Sodium Chloride (Nss) 500 mls @ 999 mls/hr IV .Q31M YASMINE Stop: 03/14/19 11:00 Last Infusion: 03/14/19 11:15 Dose: 0 mls/hr Documented by: [id number] Admin: 03/14/19 10:43 Dose: 999 mls/hr Documented by: [id number] Sodium Chloride (Nss 1000ml) 500 mls @ 999 mls/hr IV .Q31M ONE Stop: 03/14/19 12:41 Last Infusion: 03/14/19 14:07 Dose: 0 mls/hr Documented by: [id number] Admin: 03/14/19 13:24 Dose: 999 mls/hr Documented by: [id number] Metoprolol Succinate (Toprol Xl) 50 mg PO NOW STA Stop: 03/14/19 12:12 Last Admin: 03/14/19 13:24 Dose: 50 mg Documented by: [id number] Metoprolol Tartrate (Lopressor) 5 mg IV Q5M PRN PRN Reason: Tachycardia Stop: 04/13/19 10:26 Last Admin: 03/14/19 10:43 Dose: 5 mg Documented by: [id number] Medical Decision Making Differential Diagnosis Differential diagnosis includes etiologies such as premature contractions, electrolyte abnormality, cardiac dysrhythmia, thyroid dysfunction, pulmonary embolism, infection, gastrointestinal, as well as others were entertained. Medical Records Attestation: I reviewed the patient's medical records. Home Medications Current Medication List: was personally reviewed by me Laboratory Data Attestation: I reviewed the patient's lab results. Result diagrams: 03/14/19 10:33 03/14/19 10:33 Lab Results 03/14/19 03/14/19 Range/Units 10:33 10:33 WBC 8.15 (4.8-10.8) K/uL RBC 4.91 (4.7-6.1) M/uL Hgb 15.8 (14.0-18.0) g/dL Hct 44.5 (42-52) % MCV 90.6 (80-100) fL MCH 32.2 (25-34) pg MCHC 35.5 (32-36) g/dL RDW Std Deviation 42.5 (36.4-46.3) fL RDW Coeff of [place] 12.9 (11.5-14.5) % Plt Count 233 (130-400) K/uL MPV 9.9 (7.4-10.4) fL Immature Gran % (Auto) 0.4 % Neut % (Auto) 70.8 % Lymph % (Auto) 16.6 % [place] % (Auto) 11.9 % Eos % (Auto) 0.2 % Baso % (Auto) 0.1 % Immature Gran # (Auto) 0.03 H (0.00-0.02) K/uL Neut # (Auto) 5.77 (1.4-6.5) K/uL Lymph # (Auto) 1.35 (1.2-3.4) K/uL [place] # (Auto) 0.97 H (0.11-0.59) K/uL Eos # (Auto) 0.02 (0-0.5) K/uL Baso # (Auto) 0.01 (0-0.2) K/uL Sodium 140 (136-145) mmol/L Potassium 4.7 (3.5-5.1) mmol/L Chloride 108 H (98-107) mmol/L Carbon Dioxide 27 (21-32) mmol/L Anion Gap 5.0 (3-11) BUN 18 (7-18) mg/dl Creatinine 1.46 H (0.6-1.4) mg/dl Est Cr Clr Drug Dosing 47.3 ml/min Est GFR ( Amer) 54.1 Est GFR (Non-Af Amer) 46.7 BUN/Creatinine Ratio 12.3 (10-20) Glucose 115 H (70-99) mg/dl Calcium 8.9 (8.5-10.1) mg/dl Phosphorus 2.4 L (2.5-4.9) mg/dl Magnesium 2.1 (1.8-2.4) mg/dl Total Bilirubin 0.8 (0.2-1) mg/dl AST 25 (15-37) U/L ALT 27 (12-78) U/L Alkaline Phosphatase 88 (45-117) U/L Troponin I 0.086 H* (0-0.045) ng/ml Total Protein 7.6 (6.4-8.2) gm/dl Albumin 3.7 (3.4-5.0) gm/dl Globulin 3.9 (2.5-4.0) gm/dl Albumin/Globulin Ratio 0.9 (0.9-2) TSH 1.930 (0.300-4.500) uIu/ml ECG Data Attestation: I personally reviewed and interpreted this ECG as follows: Indication: + tachycardia Rate (beats per minute): 199 Rhythm: + SVT ECG Intervals/blocks: + Normal QRS ECG [place]: + Normal ECG ST segments: + ST depression (Lateral) ECG Findings: + Other (monomorphic) Comparison ECG Date: from (09/13/18) Change: the following changes noted (rate and rhythm change) Additional Comments: Repeat EK Rate: 104 Sinus tachycardia Normal interval and axis No ST changes Repeat EK:41:02 Rate: 150 No obvious P wave Normal QRS duration, Normal axis Slight depression in V 4 Repeat EK:35 Rate: 109 Sinus tachycardia Normal interval, normal axis, occasional PVS and fusion beats noted. No obvious ischemia changes. Blood Pressure Blood Pressure Findings: Normal blood pressure MDM Narrative The patient is a 74 y/o male with a past medical history of atrial flutter and cardio ablation, who presents to the emergency department via EMS for evaluation of constant light headedness and fatigue that began 2 hours ago Patient was seen and evaluated the bedside. The patient did state that he was having some fatigue and weakness but no chest pains or shortness of breath this morning. Patient is a prior history of a cardiac ablation completed by Dr. Mahad gant in September. Patient states his been compliant with his Eliquis and metoprolol but did not take them this morning. The patient did receive 6, 12, and 12 mg of adenosine. The 12 of adenosine did convert the patient but the pa tient subsequently reverted into an SVT. Given that the patient does have prior history of flutter and the patient does take beta-beth but did not take it today we will attempt Lopressor. Pads were placed on the patient. Patient's initial EKG shows a ventricular rate close to 200 with some mild depression in the lateral leads. Patient does not complain of any active chest pains or shortness of breath. The patient's blood work does show some mild CKD which is likely chronic but the patient was also dry and was given some IV fluids. Patient's troponin was detectable. Given the patient's in and out between this monomorphic narrow complex tachycardia and sinus tach patient had been given 1 dose of Lopressor as well as his home dose of metoprolol with a positive troponin. Patient denies any chest pains or shortness of breath. The patient's EKG in sinus tach does not show obvious ischemic change we will give him full dose aspirin and will trend enzymes. I did speak the on-call hospitalist as well as update the patient. Patient was admitted to medicine service. Impression & Plan SVT (supraventricular tachycardia), Elevated troponin, Acute dehydration Critical Care Time Critical Care Time: Yes Total Critical Care Time: 45 I have personally spent greater than 45 minutes of critical care time in direct management of this patient. This includes bedside care, interpretation of diagnostic studies, and testing, discussion with consultants, patient, and family members, and other require inpatient management activities. This 45 minutes is in excess of all separately billable procedures. Discharge Plan Visit Data *Final* Discharge Date/Time: 03/14/19 14:05 Chief Complaint: Tachycardia ED Provider: Elias Black Discharge Problem: SVT (supraventricular tachycardia), Elevated troponin, Acute dehydration Patient Disposition: Admitted As Inpatient Discharge Instructions Interventions: ED Discharge Assessment Last Done: 03/14/19 14:05 The scribe's documentation has been prepared under my direction and personally reviewed by me in its entirety. I confirm that the note above accurately reflects all work, treatment, procedures, and medical decision making performed by me.
[2019-03-14] MEDS: APIXABAN 5 MG TABLET PO SCH (20:31)
[2019-03-14] MEDS: ATORVASTATIN 20 MG TAB PO SCH (20:32)
[2019-03-14] MEDS ORDERED: METOPROLOL SUCC 25MG EXT REL TAB PO SCH ×2 (23:00)
[2019-03-15 05:51] LABS: Hematocrit (blood only) 40.2 % (42-52); Hemoglobin 13.8 g/dL (14.0-18.0); Mean Corpuscular Hemoglobin 31.2 pg (25-34); Mean Corpuscular Hgb Conc 34.3 g/dL (32-36); Mean Corpuscular Volume 90.7 fL (80-100); Mean Platelet Volume 9.6 fL (7.4-10.4); Platelet Count 186 K/uL (130-400); RDW Standard Deviation 42.6 fL (36.4-46.3); Red Blood Count 4.43 M/uL (4.7-6.1); White Blood Count 7.39 K/uL (4.8-10.8)
[2019-03-15 06:26] LABS: BUN Creatinine Ratio 16.3 (10-20); Calcium 8.6 mg/dl (8.5-10.1); Creatinine Clr Calc Pharmacy 65.7 ml/min; Est GFR (African American) 80.7; Est GFR (Non-African American) 69.6; Magnesium 2.1 mg/dl (1.8-2.4)
[2019-03-15 06:37] LABS: Phosphorus 3.2 mg/dl (2.5-4.9); Troponin I 0.86 ng/ml (0-0.045)
[2019-03-15] MEDS: APIXABAN 5 MG TABLET PO SCH ×2 (08:51→20:37)
[2019-03-15] MEDS: LISINOPRIL 20 MG TAB PO SCH (08:52)
[2019-03-15] MEDS: POT PHOSPHATE MONOBASIC W/ SOD TAB PO SCH ×2 (08:52→14:38)
[2019-03-15] MEDS: METOPROLOL SUCC 50MG EXT REL TAB PO SCH (08:52)
[2019-03-15] MEDS: ALLOPURINOL 100 MG TAB PO SCH (08:52)
--- NOTE | 2019-03-15 09:37 | Cardiology Progress Note ---
Date of Service March 15, 2019 Assessment & Plan (1) SVT (supraventricular tachycardia): I am not confident I know the mechanism of the arrhythmia seen at the time of admission. This likely was reentrant in some fashion, probably an atrial flutter of sorts. His current rhythm appears to be more consistent with atrial fibrillation. Did undergo a prior ablation for a typical isthmus dependent right atrial flutter. However, there we seem to be some debate as to whether that was the true mechanism of his clinical arrhythmia. I think the return of these arrhythmias with suggest otherwise. He is not appear to be symptomatic. His rate control appears adequate if not optimal at this point. I do not see much efficacy in cardioverting him as he undoubtedly will have additional episodes of arrhythmia. He has been maintained on anticoagulation which would be the main concern outside maintaining good rate control. I think we will increase his metoprolol dose. We will monitor his heart rates and symptoms. If he continues to be asymptomatic and has recently controlled heart rates I would advocate discharging him on a higher dose of metoprolol, perhaps 100 mg of succinate daily and continued Eliquis. (2) Elevated troponin: He does have mildly elevated cardiac biomarkers which are trending downward. This is undoubtedly related to his very high heart rates. Did not manifest symptoms consistent with ischemia. Do not believe he requires any additional intervention in this regard. He can be continued on beta-beth, Eliquis and atorvastatin Subjective This morning patient was unaccompanied in his room. He is not verbalize any complaints. He did not endorse symptoms of breathing difficulty or chest pain. He was not aware of any palpitations. He did report ambulating around his room to the commode and back without symptoms. Denies any dizziness. Review of Systems Review of Systems: Unobtainable due to cognitive status Physical Exam Physical Exam: The patient is alert and oriented. Mood and affect appeared normal. He answered all questions appropriately. HEENT: Pupils are equal and reactive to light and accommodation. Extraocular movements are intact. The sclerae are anicteric. Neuro: Cranial nerves intact Neck: Patient's neck is supple. He has palpable carotid pulses bilaterally without bruits on auscultation. There is no evidence of jugular venous distention. The thyroid is not enlarged. Lungs: Clear to auscultation bilaterally. He has good air movement without use of accessory muscles. No rales wheezes or rhonchi. Cardiac: Heart demonstrates an irregular rate and rhythm. Normal S1 and S2. No murmurs on examination. Pulses: The patient has palpable radial pulses bilaterally that are equal in intensity Extremities: There was no evidence of hypoperfusion. There is no cyanosis or clubbing. There is no edema. Skin: I did not appreciate any rashes on examination today. Results & Data Vital Signs (Past 12 Hours) Vital Signs Temp Pulse Pulse Resp BP Pulse Ox 03/15/19 07:01 36.8 C 81 18 118/83 96 03/15/19 03:19 36.7 C 82 18 116/78 96 03/14/19 23:03 36.7 C 86 18 141/85 H 97 03/14/19 22:20 92 H Laboratory Results Abnormal Lab Results 03/14/19 03/14/19 03/14/19 10:33 10:33 16:37 WBC 8.15 RBC 4.91 Hgb 15.8 Hct 44.5 MCV 90.6 MCH 32.2 MCHC 35.5 RDW Std Deviation 42.5 RDW Coeff of [place] 12.9 Plt Count 233 MPV 9.9 Immature Gran % (Auto) 0.4 Neut % (Auto) 70.8 Lymph % (Auto) 16.6 [place] % (Auto) 11.9 Eos % (Auto) 0.2 Baso % (Auto) 0.1 Immature Gran # (Auto) 0.03 H Neut # (Auto) 5.77 Lymph # (Auto) 1.35 [place] # (Auto) 0.97 H Eos # (Auto) 0.02 Baso # (Auto) 0.01 Sodium 140 Potassium 4.7 Chloride 108 H Carbon Dioxide 27 Anion Gap 5.0 BUN 18 Creatinine 1.46 H Est Cr Clr Drug Dosing 47.3 Est GFR ( Amer) 54.1 Est GFR (Non-Af Amer) 46.7 BUN/Creatinine Ratio 12.3 Glucose 115 H Calcium 8.9 Phosphorus 2.4 L Magnesium 2.1 Total Bilirubin 0.8 AST 25 ALT 27 Alkaline Phosphatase 88 Troponin I 0.086 H* 1.010 H* Total Protein 7.6 Albumin 3.7 Globulin 3.9 Albumin/Globulin Ratio 0.9 TSH 1.930 03/15/19 03/15/19 05:13 05:13 WBC 7.39 RBC 4.43 L Hgb 13.8 L Hct 40.2 L MCV 90.7 MCH 31.2 MCHC 34.3 RDW Std Deviation 42.6 RDW Coeff of [place] 13.0 Plt Count 186 MPV 9.6 Immature Gran % (Auto) Neut % (Auto) Lymph % (Auto) [place] % (Auto) Eos % (Auto) Baso % (Auto) Immature Gran # (Auto) Neut # (Auto) Lymph # (Auto) [place] # (Auto) Eos # (Auto) Baso # (Auto) Sodium 141 Potassium 4.0 Chloride 109 H Carbon Dioxide 26 Anion Gap 6.0 BUN 17 Creatinine 1.05 Est Cr Clr Drug Dosing 65.7 Est GFR ( Amer) 80.7 Est GFR (Non-Af Amer) 69.6 BUN/Creatinine Ratio 16.3 Glucose 86 Calcium 8.6 Phosphorus 3.2 Magnesium 2.1 Total Bilirubin AST ALT Alkaline Phosphatase Troponin I 0.860 H* Total Protein Albumin Globulin Albumin/Globulin Ratio TSH PG Care Time/CCT Total # of Minutes Spent Total Time Spent with Patient: Total time spent is greater than 50% in coordination of care (as documented) at patient's floor/unit and/or counseling patient:
--- NOTE | 2019-03-15 11:23 | Hospitalist Progress Note ---
Date of Service March 15, 2019 Assessment & Plan (1) Atrial flutter: Patient with A. fib's. Will undergo cardiac catheterization today by Dr. Tobin. Continue metoprolol and titrate up if as needed. Consider amiodarone if heart rate not well controlled. In that situation decrease metoprolol. (2) Confusion: Resolved (3) GENE (acute kidney injury): Baseline Cr ~1.1, Cr up to 1.45 on admission. Pre-renal vs. concern for ATN if he had a transient episode of hypotension from his fast rate. - Received 1.5 L of IV fluids in the ED - Mental status normal; I believe he can remain hydrated on his own and as long as HR is ~100, his perfusion appears fine. - Trend Cr (4) Hypertension: Normally well-controlled. Presently 144/105 in chart. Was 115/80 while I w as in the room. - Hold home lisinopril for GENE - Continue beta-beth - Monitor (5) Hyperlipemia: - Continue home med (6) Gout: - Continue home med (7) DVT prophylaxis: On apixaban for A. fib's. Subjective Patient seen and examined at bedside. Patient will undergo cardiac catheterization for NSTEMI. Patient continues to be in A. fib's. Per Dr. Tobin recommendation for rate control he recommended to start amiodarone and in that situation to reduce patient metoprolol. Patient has been adequately anticoagulated and has very low or of any thromboembolic event. Patient denies fever, chills, chest pain, shortness of breath, abdominal pain, frequency, urgency. Patient is on Eliquis 2 g twice daily. Review of Systems Review of Systems: All systems reviewed & are unremarkable except as noted in HPI & below Physical Exam Constitutional: WD/WN, vitals as above well developed Eyes: PERRL, conjunctivae normal, anicteric sclerae ENMT: external ear and nose normal, oropharynx normal Neck: trachea midline, no thyromegaly Respiratory: normal respiratory effort, lungs clear to auscultation Cardiovascular: Rate/Rhythm: + irregularly irregular Heart Sounds: normal S1, normal S2 and + murmur Palpation: + palpable S3 Vessels: dorsalis pedis pulses present Gastrointestinal (Abdomen): normal bowel sounds, soft, nontender, no hepatosplenomegaly Musculoskeletal: no cyanosis or clubbing, extremities motor strength 5/5 Skin: no rashes, warm and dry Neurologic: patellar DTR's 2+ bilat, sensation intact Psychiatric: A+Ox3, euthymic affect Lymphatic: no cervical or axillary lymphadenopathy Results & Data Vital Signs (Past 12 Hours) Vital Signs Temp Pulse Resp BP Pulse Ox 03/15/19 07:01 36.8 C 81 18 118/83 96 03/15/19 03:19 36.7 C 82 18 116/78 96 PG Care Time/CCT Total # of Minutes Spent Total Time Spent with Patient: Total time spent is greater than 50% in coordination of care (as documented) at patient's floor/unit and/or counseling patient:
--- NOTE | 2019-03-15 17:27 | Cardiac Catheterization ---
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 Status Clinical evaluation leading to the procedure CAD Presenation: Non STEMI Diagnostic Physicians Name: Ankush Tobin MD Closure Device Recommendations: PCI without planned CABG Cardiac Cath Procedure Full Procedure Date March 15, 2019 Pre-Procedure Diagnosis Pre-Procedure Diagnosis: Non STEMI AUC Score AUC Score: 8 Post-Procedure Diagnosis Post-Procedure Diagnosis: Moderate CAD Procedure(s) Performed Procedure(s) Performed: Coronary Angiography and Left Heart Cath Donor Services Technician Ankush Tobin MD Wet Pour Supervisor(s) none Estimated Blood Loss Estimated Blood Loss: 10cc Medication(s) Medication(s): Fentanyl, Heparin, Nicardipine, Nitroglycerin and Versed Summary of Findings Indication: Non ST elevation myocardial infarction Equipment used: 5 Pashto 3DRC, 5 Pashto JL5 Coronary angiography: Left main: Left main was normal in size and caliber and effectively trifurcate into the LAD a ramus intermedius branch and the left circumflex. There is no significant disease in this vessel Left anterior descending: Left anterior descending was a large transapical vessel. It gave off a medium-sized diagonal branch. Just after the takeoff of the diagonal branch was approximately 50% stenosis. In the midportion of the LAD there was a hazy 90% stenosis. There was DENISE 3 flow in the vessel. There were several other diminutive diagonals and distal portion of the vessel. Ramus intermedius: Ramus intermedius was a medium-sized vessel without disease Left circumflex: Left circumflex vessel was a codominant vessel. It produced a very small 1st OM branch and a larger posterolateral branch. There is no significant disease in this vessel Right coronary artery: The right coronary artery was somewhat patulous with luminal irregularities but no discrete stenoses. Hemodynamics Rest Ao:: 98/62 mm of mercury Final Ao: 106/64 mm of mercury LV: 109/3 mm of mercury with left ventricular end-diastolic pressure of 15 mm of mercury Recommendations Recommendations: PCI without planned CABG Radiation Exposure (mGy) q Contrast (mls) q Procedural Complication(s) None Disposition PCU I attest to the content of the Intraoperative Record and any orders documented therein. Any exceptions are noted below.
[2019-03-15] MEDS: ATORVASTATIN 20 MG TAB PO SCH (20:37)
[2019-03-15] MEDS ORDERED: METOPROLOL SUCC 50MG EXT REL TAB PO SCH (21:00)
[2019-03-16 05:47] LABS: Basophils # (auto) 0.02 K/uL (0-0.2); Basophils % (auto) 0.3 %; Eosinophils # (auto) 0.09 K/uL (0-0.5); Eosinophils % (auto) 1.2 %; Hematocrit (blood only) 40.9 % (42-52); Hemoglobin 14.5 g/dL (14.0-18.0); Immature Granulocytes # (auto) 0.02 K/uL (0.00-0.02); Immature Granulocytes % (auto) 0.3 %; Lymphocytes # (auto) 1.69 K/uL (1.2-3.4); Mean Corpuscular Hemoglobin 31.5 pg (25-34); Mean Corpuscular Hgb Conc 35.5 g/dL (32-36); Mean Corpuscular Volume 88.9 fL (80-100); Mean Platelet Volume 9.2 fL (7.4-10.4); Monocytes # (auto) 0.72 K/uL (0.11-0.59); Monocytes % (auto) 9.8 %; Neutrophils # (auto) 4.82 K/uL (1.4-6.5); Neutrophils % (auto) 65.4 %; Platelet Count 204 K/uL (130-400); RDW Coefficient of Variation 12.7 % (11.5-14.5); RDW Standard Deviation 40.7 fL (36.4-46.3); White Blood Count 7.36 K/uL (4.8-10.8)
[2019-03-16 06:15] LABS: Albumin Level 3.5 gm/dl (3.4-5.0); BUN Creatinine Ratio 15.5 (10-20); Calcium 9.3 mg/dl (8.5-10.1); Est GFR (African American) 70.8; Est GFR (Non-African American) 61.1
[2019-03-16 06:17] LABS: Bilirubin,Total 0.7 mg/dl (0.2-1); Globulin 3.6 gm/dl (2.5-4.0); Total Protein 7.1 gm/dl (6.4-8.2)
[2019-03-16] MEDS: LISINOPRIL 20 MG TAB PO SCH (07:34)
[2019-03-16] MEDS: ALLOPURINOL 100 MG TAB PO SCH (07:35)
[2019-03-16] MEDS: APIXABAN 5 MG TABLET PO SCH ×2 (07:35→21:21)
[2019-03-16] MEDS: METOPROLOL SUCC 50MG EXT REL TAB PO SCH (07:35)
--- NOTE | 2019-03-16 07:55 | Hospitalist Progress Note ---
Date of Service March 16, 2019 Assessment & Plan (1) Atrial flutter: Patient with A. fib's. Please metoprolol in the morning to 75mg p.o. daily and 50 mg at bedtime. Plan to increase night dose to 75 mg nightly. Consider amiodarone if heart rate not well controlled. In that situation d ecrease metoprolol. (2) Confusion: Per patient my patient continues to be confused. Patient appears to be in delirium worse in the afternoon and better in the morning. Patient is . (3) GENE (acute kidney injury): Resolved with gentle IV fluid hydration. Creatinine is 1.17 now. Continue avoiding nephrotoxic agents. (4) Hypertension: Blood pressure is at the lower side at this point 109/82 .Hold home lisinopril. - Continue beta-beth - Monitor (5) Hyperlipemia: - Continue home med (6) Gout: - Continue home med (7) DVT prophylaxis: On apixaban for A. fib's. Subjective Patient seen and examined at bedside. Patient continues to be in A. fib's. Per Dr. Tobin recommendation for rate control he recommended to start amiodarone and in that situation to reduce patient metoprolol. Patient has been adequately anticoagulated and has very low or of any thromboembolic event. Patient denies fever, chills, chest pain, shortness of breath, abdominal pain, frequency, urgency. Patient is on Eliquis 5 mg twice daily. Review of Systems Review of Systems: All systems reviewed & are unremarkable except as noted in HPI & below Physical Exam Constitutional: WD/WN, vitals as above well developed Eyes: PERRL, conjunctivae normal, anicteric sclerae ENMT: external ear and nose normal, oropharynx normal Neck: trachea midline, no thyromegaly Respiratory: normal respiratory effort, lungs clear to auscultation Cardiovascular: Rate/Rhythm: + irregularly irregular Heart Sounds: normal S1, normal S2 and + murmur Palpation: + palpable S3 Vessels: dorsalis pedis pulses present Gastrointestinal (Abdomen): normal bowel sounds, soft, nontender, no hepatosplenomegaly Musculoskeletal: no cyanosis or clubbing, extremities motor strength 5/5 Skin: no rashes, warm and dry Neurologic: patellar DTR's 2+ bilat, sensation intact Psychiatric: A+Ox3, euthymic affect Lymphatic: no cervical or axillary lymphadenopathy Results & Data Vital Signs (Past 12 Hours) Vital Signs Temp Pulse Pulse Resp BP Pulse Ox 03/16/19 07:02 36.5 C 110 H 15 122/81 97 03/16/19 02:12 37.0 C 88 18 135/72 98 03/16/19 00:00 83 03/15/19 23:11 37.0 C 100 H 18 132/91 97 PG Care Time/CCT Total # of Minutes Spent Total Time Spent with Patient: Total time spent is greater than 50% in coordination of care (as documented) at patient's floor/unit and/or counseling patient:
[2019-03-16] MEDS ORDERED: METOPROLOL SUCC 25MG EXT REL TAB PO ONE (08:15)
--- NOTE | 2019-03-16 16:04 | Hospitalist Progress Note ---
Date of Service March 16, 2019 Assessment & Plan (1) Atrial flutter: Patient with A. fib's. Please metoprolol in the morning to 75mg p.o. daily and 50 mg at bedtime. Plan to increase night dose to 75 mg nightly. Consider amiodarone if heart rate not well controlled. In that situation d ecrease metoprolol. (2) Confusion: Per patient my patient continues to be confused. Patient appears to be in delirium worse in the afternoon and better in the morning. Patient is . (3) GENE (acute kidney injury): Resolved with gentle IV fluid hydration. Creatinine is 1.17 now. Continue avoiding nephrotoxic agents. (4) Hypertension: Blood pressure is at the lower side at this point 109/82 .Hold home lisinopril. - Continue beta-beth - Monitor (5) Hyperlipemia: - Continue home med (6) Gout: - Continue home med (7) DVT prophylaxis: On apixaban for A. fib's. Subjective Patient seen and examined at bedside. Patient continues to be in A. fib's. Per Dr. Tobin recommendation for rate control he recommended to start amiodarone and in that situation to reduce patient metoprolol. Patient has been adequately anticoagulated and has very low or of any thromboembolic event. Patient denies fever, chills, chest pain, shortness of breath, abdominal pain, frequency, urgency. Patient is on Eliquis 5 mg twice daily. Physical Exam Constitutional: WD/WN, vitals as above well developed Eyes: PERRL, conjunctivae normal, anicteric sclerae ENMT: external ear and nose normal, oropharynx normal Neck: trachea midline, no thyromegaly Respiratory: normal respiratory effort, lungs clear to auscultation Cardiovascular: Rate/Rhythm: + irregularly irregular Heart Sounds: normal S1, normal S2 and + murmur Palpation: + palpable S3 Vessels: dorsalis pedis pulses present Gastrointestinal (Abdomen): normal bowel sounds, soft, nontender, no hepatosplenomegaly Musculoskeletal: no cyanosis or clubbing, extremities motor strength 5/5 Skin: no rashes, warm and dry Neurologic: patellar DTR's 2+ bilat, sensation intact Psychiatric: A+Ox3, euthymic affect Lymphatic: no cervical or axillary lymphadenopathy Results & Data Vital Signs (Past 12 Hours) Vital Signs Temp Pulse Pulse Resp BP BP BP 03/16/19 15:09 37.0 C 112 H 16 109/82 03/16/19 11:10 108 H 86/53 L 03/16/19 11:04 201 H 132/97 03/16/19 10:28 36.5 C 74 24 132/97 03/16/19 08:00 83 03/16/19 07:02 36.5 C 110 H 15 122/81 Pulse Ox 03/16/19 15:09 95 03/16/19 11:10 03/16/19 11:04 03/16/19 10:28 96 03/16/19 08:00 03/16/19 07:02 97 PG Care Time/CCT Total # of Minutes Spent Total Time Spent with Patient: Total time spent is greater than 50% in coordination of care (as documented) at patient's floor/unit and/or counseling patient:
[2019-03-16] MEDS: ATORVASTATIN 20 MG TAB PO SCH (21:21)
[2019-03-16] MEDS: METOPROLOL SUCC 25MG EXT REL TAB PO SCH (21:22)
[2019-03-17 05:46] LABS: Basophils # (auto) 0.01 K/uL (0-0.2); Basophils % (auto) 0.1 %; Eosinophils # (auto) 0.07 K/uL (0-0.5); Eosinophils % (auto) 0.9 %; Hematocrit (blood only) 41.9 % (42-52); Hemoglobin 14.7 g/dL (14.0-18.0); Immature Granulocytes # (auto) 0.02 K/uL (0.00-0.02); Immature Granulocytes % (auto) 0.3 %; Lymphocytes # (auto) 2.23 K/uL (1.2-3.4); Lymphocytes % (auto) 29.2 %; Mean Corpuscular Hemoglobin 31.7 pg (25-34); Mean Corpuscular Hgb Conc 35.1 g/dL (32-36); Mean Corpuscular Volume 90.3 fL (80-100); Mean Platelet Volume 9.6 fL (7.4-10.4); Monocytes % (auto) 11.8 %; Neutrophils # (auto) 4.41 K/uL (1.4-6.5); Neutrophils % (auto) 57.7 %; Platelet Count 204 K/uL (130-400); RDW Standard Deviation 42.2 fL (36.4-46.3); Red Blood Count 4.64 M/uL (4.7-6.1); White Blood Count 7.64 K/uL (4.8-10.8)
[2019-03-17 06:20] LABS: Albumin Level 3.2 gm/dl (3.4-5.0); BUN Creatinine Ratio 17.2 (10-20); Creatinine Clr Calc Pharmacy 60.5 ml/min; Potassium 3.8 mmol/L (3.5-5.1)
[2019-03-17 06:28] LABS: Albumin Globulin Ratio 0.9 (0.9-2); Bilirubin,Total 1.3 mg/dl (0.2-1); Globulin 3.6 gm/dl (2.5-4.0); Total Protein 6.8 gm/dl (6.4-8.2)
[2019-03-17] MEDS: APIXABAN 2.5 MG TAB PO SCH ×2 (08:15→21:44)
[2019-03-17] MEDS: METOPROLOL SUCC 25MG EXT REL TAB PO SCH ×2 (08:15→22:48)
[2019-03-17] MEDS: ALLOPURINOL 100 MG TAB PO SCH (08:15)
[2019-03-17] MEDS: LISINOPRIL 20 MG TAB PO SCH (08:16)
--- NOTE | 2019-03-17 09:21 | Hospitalist Progress Note ---
Date of Service March 17, 2019 Assessment & Plan (1) Atrial flutter: Patient with A. fib's. Slowly improving. Continue telemetry. Continue metoprolol in the morning to 75mg p.o. daily and 75 mg at bedtime. Consider amiodarone if heart rate not well controlled. In that situation decre ase metoprolol. Appreciate cardiology recommendations Present on Admission?: Yes (2) Neurocognitive deficits: CT head: Acute intracranial abnormality. Likely age-related parenchymal volume loss Appreciate psychiatry recommendations Plan to consult neurology for probable progressive dementia apparently vascular type. Vitamin B12, folate and RPR pending. Oriented patient in the room daily Present on Admission?: Yes (3) GENE (acute kidney injury): Resolved with gentle IV fluid hydration. Creatinine is 1.17 now. Continue avoiding nephrotoxic agents. Present on Admission?: Yes (4) Hypertension: Blood pressure is at the lower side at this point 109/82 .Hold home lisinopril. - Continue beta-beth - Monitor Present on Admission?: Yes (5) Gout: Continue allopurinol 200 mg p.o. daily. Present on Admission?: Yes (6) DVT prophylaxis: On apixaban for A. fib's. (7) Hyperlipidemia: Continue atorvastatin 20 mg p.o. daily. Present on Admission?: Yes Subjective Patient seen and examined at the bedside. He responded to increase of beta- blockers and his heart rate during the day was between 66-100. Patient continues to be confused so we contacted psychiatry to give us recommendation for patient of possible delirium versus moderate dementia. He is very pleasant on the exam. He is responsive to questions even though he is not giving the proper answers or simply his just says that he is not into it. Patient did not score highly on Mini-Mental so we called psychiatry to evaluate patient as well. It is not harm to himself for his suicidal. CT of the head is done with no acute abnormalities. Patient has age-related parenchymal volume loss. It is poor historian as above, but he denies fever, chills, chest pain, shortness of breath, abdominal pain, frequency, urgency. Patient family is extremely concerned about patient neurocognitive decline and they believe that it is caused by metoprolol. We discussed with the family and explained that that simply not the case, and this what is happening with patient is more ne urocognitive decline that has been ongoing for prolonged period of time. Review of Systems Review of Systems: All systems reviewed & are unremarkable except as noted in HPI & below Physical Exam Constitutional: WD/WN, vitals as above well developed Eyes: PERRL, conjunctivae normal, anicteric sclerae ENMT: Ears: + hearing impairment (Severe hearing impairment. Patient has available hearing aid, which he obtained 2 weeks ago.) Neck: trachea midline, no thyromegaly Respiratory: normal respiratory effort, lungs clear to auscultation Cardiovascular: RRR, no murmur, no edema Rate/Rhythm: + irregularly irregular Gastrointestinal (Abdomen): normal bowel sounds, soft, nontender, no hepatosplenomegaly Musculoskeletal: no cyanosis or clubbing, extremities motor strength 5/5 Skin: no rashes, warm and dry Neurologic: patellar DTR's 2+ bilat, sensation intact Psychiatric: Estimated Intelligence: + below average estimated intelligence Judgement: + limited judgement Moderate most likely vascular dementia. Lymphatic: no cervical or axillary lymphadenopathy Results & Data Vital Signs (Past 12 Hours) Vital Signs Temp Pulse Resp BP BP Pulse Ox 03/17/19 07:55 36.7 C 101 H 20 108/90 96 03/17/19 04:50 84 16 121/87 03/16/19 23:11 36.7 C 109 H 20 118/83 97 PG Care Time/CCT Total # of Minutes Spent Total Time Spent with Patient: Total time spent is greater than 50% in coordina tion of care (as documented) at patient's floor/unit and/or counseling patient:
--- NOTE | 2019-03-17 10:29 | CT Scan Report ---
CT head/brain wo con CLINICAL HISTORY: 74 years-old Male presenting with confusion. TECHNIQUE: Multidetector CT imaging of the head was performed without the use of intravenous contrast . IV contrast: None. One or more dose lowering techniques were used consistent with the principles of ALARA (as low as reasonably achievable), including automatic exposure control, mA or kV adjustment t o individual patient size, and/or use of iterative reconstruction. COMPARISON: None. CT DOSE (mGy.cm): The estimated cumulative dose is 537.48 mGy.cm. 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 Proportional ventricular and sulcal prominence, likely age-related parenchymal volume loss. No hemorr umberto. Brain parenchyma normal in appearance with preserved thomason-white differentiation. No acute ely torial infarct. No mass effect or midline shift. No extra-axial fluid collection. Paranasal sinuses a nd mastoid air cells clear. Calvarium intact. Surgical clips noted in the left temporal fossa. IMPRESSION: 1. No acute intracranial abnormality. Electronically signed by: Len Andersen M.D. 03/17/2019 10:28 AM
[2019-03-17 11:19] LABS: Vitamin B12 625 pg/ml (211-911)
[2019-03-17 11:20] LABS: Folate (Folic Acid) > 24.00 ng/ml (>5.38)
--- NOTE | 2019-03-17 18:25 | Psychiatric Consultation ---
Date of Consultation March 17, 2019 Impression / Recommendations Impression 74-year-old male admitted medically on 03/14/19 due to fatigue and dizziness occurring prior to arrival. Pt as admitted for treatment and observation of atrial flutter, and was found to have episodes of confusion. Psychiatric consultation was requested to evaluate patient for "dementia v delirium" and medication recommendations. Based on interaction with the patient, he does appear to be mildly confused and is unsure of events leading to his admission. While he may not be able to provide specific details regarding the events, he is able to appropriately follow the series of questions and gives decent answers to questions asked. When completing mental status exam, patient does respond to unknown questions with statements such as "I'm not much into that" or "the date doesn't bother me much." There is certainly possibility of neurocognitive decline if this has been ongoing behavior for him. Consider neurology consultation if further work-up is desired regarding the possibility of dementia. At this point, the patient is not demonstrating agitation or aggression. He is reported by his nurse to be cooperative and pleasant. Delirium also remains on the differential, and medications are not indicated for treatment of this diagnosis, rather only to reduce risk of harm to self or others. As patient is not demonstrating agitated behavior, would not suggest utilization of antipsychotic medications at this time. We are certainly willing to weigh in on medication options if there is a change in patient's behavior. Delirium protocol would suggest patient should be frequently reoriented to person, place, time, event, and intervention to be performed. Pt should be permitted to utilize corrective lenses and assistive hearing devices when appropriate. Permit use of familiar comfort items when appropriate as well. Keep patient awake and active during the day, with light on in room. Conversely, dark room should be maintained at night with sleep being encouraged. Use of prn medications should be limited to behavioral concerns that threaten the safety of the patient or staff, in order to prevent worsening of confusion and excessive sedation. Dr. Josefa García was directly involved in review and discussion of the patient's case and participated in medical decision making regarding treatment recommendations. Psych History Identifying Data 74-year-old male admitted medically on 03/14/19 due to fatigue and dizziness occurring prior to arrival. Pt as admitted for treatment and observation of atrial flutter, and was found to have episodes of confusion. Psychiatric consultation was requested to evaluate patient for "dementia v delirium" and medication recommendations. Information is gathered from hospital documentation and the patient himself - combination of which is considered to be reliable. Chief Complaint "Yup...now, what's that again?" History of Present Illness Lidia Rodriguez is a 74-year-old male admitted medically on 03/14/19 for treatment and monitoring of atrial flutter. Pt was reportedly demonstrating episodes of confusion during his admission as well. Psychiatric consultation was requested to evaluate the patient for "dementia v delirium" and medication recommendations . Pt is seen along with our psychiatric nurse liaison. When asked how he is feeling, the patient states, "yup." He then comments, things seem going, people are all doing their jobs, working hard, you don't see anyone just sitting around." When asked what brought him to the ED, the patient states "I don't know why we did, we come down to get something done. 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 He denies any symptoms related to depression or anxiety, stating he is generally "pretty low andrews." He states he is involved in the [employer], the [employer], and his rastafari - and feels he is kept quite busy. He reports his is supportive and he visits with his adult sons routinely. Pt does believe that his appetite has been somewhat reduced over the last juan r ral years, stating "when you get older your whole system is slower, you don't need to eat as much." He denies SI, stating "I don't want to think about that, let's go the other way." He denies significant psychiatric history, stating he has never received inpatient psychiatric treatment or been started on medications to target low mood or anxiety. Pt denies significant substance abuse. See Physical Examination for more in-depth mental status exam comments. Past Psychiatric History Previous Psych History: No known psychiatric history Previous Psych Admissions: None History of Previous Suicide Attempt: No Past Medication Trials: None Allergies Allergy/AdvReac Type Severity Reaction Status Date / Time No Known Allergies Allergy Verified 03/14/19 11:04 Home Medications Home Medications Medication Instructions Recorded Confirmed Type allopurinol 100 mg tablet 200 mg PO DAILY #180 tab 12/25/18 03/14/19 History atorvastatin 20 mg tablet 20 mg PO QPM tab 12/25/18 03/14/19 History lisinopril 20 mg tablet 20 mg PO DAILY #90 tab 12/25/18 03/14/19 History metoprolol succinate ER 50 mg 50 mg PO DAILY tab 12/25/18 03/14/19 History tablet,extended release 24 hr apixaban [Eliquis] 5 mg PO BID 03/14/19 03/14/19 History Family History Pt denies known family history of mental health conditions Substance Abuse History Pt denies tobacco use. He admits to "maybe 2 drinks in a week, that's a lot" - with regard to alcohol use. He reports drinking "whatever is being offered." Pt denies current use or prior heavy experimentation with illicit substances. 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[place], [place]) Marital Status: ( of 44 years) Number Of Children: 3 sons - 2 living in [place], 1 living in [place] Beliefs That Will Affect Care: Tenriism History of Legal Problems: Denies Psychological Trauma History Comment: Denies, stating "I don't want to get into much of that, I try to be uplifting and helpful." Patient History Medical History Atrial flutter Gout Hyperlipemia Hypertension Surgical History H/O cardiac radiofrequency ablation Family History Father Gout Social History Preferred Language: Burkinan Communication Ability: Effective Heading Pinner Required: No Beliefs That Will Affect Care: None Current Living Situation: Spouse Feels Safe at Home: Yes Smoking Status: Never smoker Second Hand Exposure: No ; Hx Alcohol Use: Yes Alcohol type: beer Hx Substance Use: No Physical Exam Psychiatric: Orientation: alert, oriented to person and cooperative (and pleasant); + not oriented to place and + not oriented to time Apperance: appropriately dressed (in hospital gown), appropriately groomed and appeared stated age Eye Contact: good eye contact Motor Behavior: no abnormal motor movements (observed while sitting upright in bed) Speech: normal rate/rhythm/volume of speech (mild delays before producing answers to questions) Affect: euthymic affect and mood congruent with affect Mood: no depressed mood and no anxious mood "I'm pretty low andrews, I don't like to think a lot about sad things." Thought Process: goal directed thought process, clear/coherent thought process and + circumstantial thought process (introducing stories often unrelated to questions being asked) Thought Content: reality based without delusions; no hopelessness and no worthlessness Suicidal Thoughts: denies suicidal thoughts, denies suicidal plan and denies suicidal intent "I don't even want to think about that, let's go the other way." Homicidal Thoughts: denies homicidal thoughts Hallucinations: no auditory hallucinations and no visual hallucinations Cognition: attention grossly intact and language grossly intact Insight: + fair insight Judgement: + fair judgement Vital Signs (Past 24 Hours): Last Vital Signs Temp 36.4 C L 03/17/19 15:02 Pulse 92 H 03/17/19 15:02 Resp 14 03/17/19 15:02 BP 86/65 L 03/17/19 15:02 Pulse Ox 98 03/17/19 15:02 Exam Statement: Pt is aware of his name, and the name of his . He knows the month is March, stating he knows "it's the second from last" and working his way backward. he is not aware of the date, stating "the date itself doesn't bother me much." He knows it is 2018. Pt states he is "confused about what's going on here", unable to say what city he is currently in, but is aware he is in a facility "not a real hospital, but it's like a hospital." He is able to produce 3 major cities in the [place] from memory. When asked the name of the current president, he pauses, stating "I'm not much into politics." He states "that's the big alexis...I don't know." The name Nestor Oquendo is familiar to him. When asked to spell the word "world" backwards, he states "not the whole way, just the first three letters going backways. [id number]." He was asked to draw a clock and forms an appropriate [place]. The numbers are written in appropriate order, but aligned in an overlapping [place] when compared to his initial [place]. He was asked to draw hands to indicate the time "10 past 11", and draws a single arrow pointing down at the "11" from above. He draws the number "10" above the arrow, from the rest of his drawing. Review of Systems Constitutional: reports feeling "just a tad bit" confused Cardiovascular: denied Respiratory: denied Gastrointestinal: denied Neurological: denied Psychiatric: denies symptoms other than stated above Total of at least 10 systems reviewed, pertinent positives as above and in HPI. Results & Data Medications Administered Allopurinol (Zyloprim) 200 mg PO DAILY YASMINE Stop: 04/14/19 08:59 Last Admin: 03/17/19 08:15 Dose: 200 mg Documented by: [id number] Admin: 03/16/19 07:35 Dose: 200 mg Documented by: [id number] Admin: 03/15/19 08:52 Dose: 200 mg Documented by: [id number] Apixaban (Eliquis) 5 mg PO BID YASMINE Stop: 04/13/19 20:59 Last Admin: 03/16/19 21:21 Dose: 5 mg Documented by: [id number] Admin: 03/16/19 07:35 Dose: 5 mg Documented by: [id number] Admin: 03/15/19 20:37 Dose: 5 mg Documented by: [id number] Admin: 03/15/19 08:51 Dose: 5 mg Documented by: [id number] Admin: 03/14/19 20:31 Dose: 5 mg Documented by: [id number] Apixaban (Eliquis) 5 mg PO BID YASMINE Stop: 03/17/19 22:00 Last Admin: 03/17/19 08:15 Dose: 5 mg Documented by: [id number] Atorvastatin Calcium (Lipitor) 20 mg PO QPM YASMINE Stop: 04/13/19 20:59 Last Admin: 03/16/19 21:21 Dose: 20 mg Documented by: [id number] Admin: 03/15/19 20:37 Dose: 20 mg Documented by: [id number] Admin: 03/14/19 20:32 Dose: 20 mg Documented by: [id number] Lisinopril (Zestril) 20 mg PO DAILY [facility] Stop: 04/14/19 08:59 Last Admin: 03/17/19 08:16 Dose: 20 mg Documented by: [id number] Admin: 03/16/19 07:34 Dose: 20 mg Documented by: [id number] Admin: 03/15/19 08:52 Dose: 20 mg Documented by: [id number] Metoprolol Succinate (Toprol Xl) 75 mg PO DAILY [facility] Stop: 04/16/19 08:59 Last Admin: 03/17/19 08:15 Dose: 75 mg Documented by: [id number] Metoprolol Succinate (Toprol Xl) 75 mg PO HS [facility] Stop: 04/15/19 20:59 Last Admin: 03/16/19 21:22 Dose: 75 mg Documented by: [id number] Metoprolol Tartrate (Lopressor) 5 mg IV Q15M PRN PRN Reason: Tachycardia>120 Stop: 04/13/19 19:41 Last Admin: 03/16/19 11:04 Dose: 5 mg Documented by: [id number] Coding Level of Care Code 68608 U Intl Hosp Care Lvl 3
[2019-03-17] MEDS: ATORVASTATIN 20 MG TAB PO SCH (21:44)
[2019-03-17 23:47] LABS: Amphetamines+Metham, Urine Neg (Neg); Barbiturates, Urine Neg (Neg); Benzodiazepine, Urine Neg (Neg); Cocaine, Urine Neg (Neg); MDMA (Ecstacy), Urine Neg (Neg); Methadone, Urine Neg (Neg); Opiate, Urine Neg (Neg); Phencyclidine, Urine Neg (Neg)
[2019-03-18 05:47] LABS: Basophils # (auto) 0.03 K/uL (0-0.2); Basophils % (auto) 0.4 %; Eosinophils # (auto) 0.12 K/uL (0-0.5); Eosinophils % (auto) 1.5 %; Hematocrit (blood only) 41.2 % (42-52); Hemoglobin 14.4 g/dL (14.0-18.0); Immature Granulocytes # (auto) 0.03 K/uL (0.00-0.02); Immature Granulocytes % (auto) 0.4 %; Lymphocytes # (auto) 2.02 K/uL (1.2-3.4); Lymphocytes % (auto) 24.9 %; Mean Corpuscular Hemoglobin 31.7 pg (25-34); Mean Corpuscular Volume 90.7 fL (80-100); Mean Platelet Volume 9.7 fL (7.4-10.4); Monocytes % (auto) 9.9 %; Neutrophils # (auto) 5.11 K/uL (1.4-6.5); Neutrophils % (auto) 62.9 %; Platelet Count 220 K/uL (130-400); RDW Coefficient of Variation 12.9 % (11.5-14.5); RDW Standard Deviation 42.3 fL (36.4-46.3); Red Blood Count 4.54 M/uL (4.7-6.1); White Blood Count 8.11 K/uL (4.8-10.8)
[2019-03-18 06:27] LABS: Albumin Level 3.3 gm/dl (3.4-5.0); BUN Creatinine Ratio 16.9 (10-20); Bilirubin,Total 0.9 mg/dl (0.2-1); Calcium 8.6 mg/dl (8.5-10.1); Creatinine Clr Calc Pharmacy 53.9 ml/min; Est GFR (African American) 63.5; Est GFR (Non-African American) 54.8; Globulin 3.4 gm/dl (2.5-4.0); Total Protein 6.7 gm/dl (6.4-8.2)
[2019-03-18] MEDS: LISINOPRIL 20 MG TAB PO SCH (07:55)
[2019-03-18] MEDS: ALLOPURINOL 100 MG TAB PO SCH (07:55)
[2019-03-18] MEDS: APIXABAN 5 MG TABLET PO SCH (07:56)
[2019-03-18] MEDS: METOPROLOL SUCC 25MG EXT REL TAB PO SCH (08:23)
[2019-03-18] MEDS ORDERED: METOPROLOL SUCC 25MG EXT REL TAB PO SCH (09:00)
[2019-03-18] MEDS ORDERED: APIXABAN 5 MG TABLET PO SCH (09:00)
--- NOTE | 2019-03-18 09:16 | Neurology Consultation ---
Date of Consultation March 18, 2019 Assessment & Plan (1) Dementia: I agree that this patient probably has a mild chronic dementia. There is also likely some superimposed delirium in the context of this recent hospitalization. Nonetheless, in light of his history of atrial fibrillation I think would be reasonable to obtain a brain MRI to exclude an acute or subacute infarct as a potential explanation of his fluctuating altered mental status at the time of presentation. He should continue with his anticoagulant, statin, and antihypertensives. I would not start treatment for what appears to be a mild dementia at this point in time. However, I would like to reassess this patient in the outpatient setting in 6 to 8 weeks for further evaluation and management of this issue. I will make any further recommendations if necessary pending completion of his brain MRI. Otherwise, have this patient see me in the outpatient setting. Thank you for the consult. History of Present Illness Reason for Consultation: Suspected dementia Requesting Physician: Shu Weiss MD Attending Physician: Shane Barrow DO History of Present Illness The patient is a 74-year old male who presented to the hospital 4 days ago with acute, fluctuating change in mental status characterized by confusion and incoherent speech occurring in the context of atrial flutter, acute kidney injury, and hypertension. He has demonstrated fairly persistent mild confusion during the context of this hospitalization. In speaking with his son, Danny, this morning at bedside, he has been having mild difficulty with short-term memory for at least the past 5 years. This issue has gotten progressively worse over time. He recalls one instance where he left the stove on. He will sometimes have difficulty with driving directions. No problem recognizing family members. He does tend to repeat himself quite often. He continues to live with his spouse in a single home although his son Danny lives nearby and is able to check on them frequently. The patient's had a mild stroke several years ago although she has been able to provide some supervision. She is still able to drive. The patient does not seem to be very aware of his present illness or past medical history. He has been taking an anticoagulant and has been evaluated by cardiology during this hospitalization. He is also been evaluated by psychiatry for his persistent confusion. It does not appear as if there was a significant concern for an underlying psychiatric disorder although some recommendations were made regarding management of probable delirium with consideration of a neurological consultation to address what could be a mild underlying dementia as well. The patient did have a CT of the head completed yesterday which was negative for hemorrhage or acute process. There was mild generalized atrophy. No findings suggestive of normal pressure hydrocephalus. No significant parenchymal abnormalities. I reviewed the images as well as the radiologist interpretation of this test. Additional details as below. Allergies Allergy/AdvReac Type Severity Reaction Status Date / Time No Known Allergies Allergy Verified 03/14/19 11:04 Home Medications Home Medications Medication Instructions Recorded Confirmed Type allopurinol 100 mg tablet 200 mg PO DAILY #180 tab 12/25/18 03/14/19 History atorvastatin 20 mg tablet 20 mg PO QPM tab 12/25/18 03/14/19 History lisinopril 20 mg tablet 20 mg PO DAILY #90 tab 12/25/18 03/14/19 History metoprolol succinate ER 50 mg 50 mg PO DAILY tab 12/25/18 03/14/19 History tablet,extended release 24 hr apixaban [Eliquis] 5 mg PO BID 03/14/19 03/14/19 History Patient History Medical History Atrial flutter Gout Hyperlipemia Hypertension Surgical History H/O cardiac radiofrequency ablation Family History Father Gout Social History Preferred Language: Burkinan Communication Ability: Effective Ship Runner Required: No Beliefs That Will Affect Care: Mormon Current Living Situation: Spouse Feels Safe at Home: Yes Smoking Status: Never smoker Second Hand Exposure: No ; Hx Alcohol Use: Yes Alcohol type: beer Hx Substance Use: No Review of Systems Eyes: no blind spots and no diplopia Ear, Nose, Mouth, Throat: no hearing loss Respiratory: no cough and no dyspnea Cardiovascular: no chest pain and no palpitations Gastrointestinal: no nausea and no vomiting Genitourinary: no urinary incontinence Musculoskeletal: no back pain, no neck pain and no myalgia Integumentary: no rash and no lesions Neurologic: as per Subjective / HPI, + confusion and + memory loss; no l ocalized weakness, no loss of sensation, no lack of coordination, no tremor(s), no abnormal movements, no seizure-like activity and no headache(s) Psychiatric: no depression, no anxiety and no hallucinations Hematologic / Lymphatic: no easy bleeding and no easy bruising Physical Exam Physical Exam: The patient is a well-developed, well-nourished elderly male. He is alert and oriented to person and hospital only. Recent memory impaired, 0 out of 3 with delayed recall. Remote memory intact. Attention normal. Concentration impaired, unable to spell world backwards, 1 out of 5. Patient exhibits a normal spontaneous speech pattern. He is able to name objects and repeat phrases. Patient exhibits some impairment of fund of knowledge as a pertains to his history of present illness and past medical history. Otherwise, language comprehension normal. Visual olson full to confrontation. Visual acuity normal. Pupils equal round react to light and accommodation. Eye movements normal. Facial sensation intact. There is no facial droop or weakness. Hearing intact. Palate elevates to midline. Shoulder shrug intact. Tongue protrudes to midline. Sensation intact to all modalities in all 4 limbs. Deep tendon reflexes are intact and symmetrical for the arms and legs. Plantar responses downgoing bilaterally. There is no dysdiadochokinesia or dysmetria [id number] or [id number] bilaterally. Ophthalmoscopic examination reveals normal-appearing optic disks and posterior segments. No papilledema or hemorrhages. Carotid pulses normal bilaterally, no bruits to aus cultation. Gait and station normal. Patient exhibits normal muscle strength and tone for all 4 limbs. No atrophy. No abnormal movements observed. Results & Data Vital Signs (Past 12 Hours) Vital Signs Temp Pulse Pulse Resp BP BP Pulse Ox 03/18/19 07:52 36.6 C 100 H 16 123/82 98 03/18/19 03:50 36.6 C 97 H 16 133/84 97 03/17/19 23:25 36.7 C 97 H 18 103/75 96 Laboratory Results WBC 8.11, hemoglobin 14.4, hematocrit 41.2, platelet count 220, sodium 139, potassium 4.0, BUN 22, creatinine 1.28, glucose 95, calcium 8.6, AST 18, ALT 26, ammonia 19.0, vitamin B12 level 625, TSH 1.930, urine drug screen negative Diagnostic Findings A CT of the head completed March 17, 2019 was negative for acute abnormality. There is mild generalized atrophy. No hemorrhage. No parenchymal abnormality. There are surgical clips in the left temporal fossa. I reviewed the images as well as the radiologist interpretation of this test. Electrocardiogram completed March 15, 2019 reveals atrial fibrillation, 80 bpm
--- NOTE | 2019-03-18 10:22 | Cardiology Progress Note ---
Date of Service March 18, 2019 Assessment & Plan (1) SVT (supraventricular tachycardia): Continues to have atrial fibrillation and periods of atrial flutter. The exact mechanism of the tachycardia is unclear. He is not symptomatic from the arrhythmia. Overall rate control appears adequate although he may not have ambulated much. I think we have adopted a rate control strategy given his absence of symptoms. His metoprolol has been increased. I think the primary issue is whether he will have symptoms or higher heart rates with activity. Encouraged nursing staff to have him ambulate around the hannah few times today. If his heart rate stays in a reasonable range then I think it is reasonable for him to be discharged on his current medical regimen. He may need some additional titration his medications in an outpatient setting. Alternatively, we could employ a rhythm control strategy primarily with medical therapy. While he seems to be fairly healthy, his cognitive status is likely decline in the next few years and amiodarone may not be a bad option for him. I do not think additional catheter based therapy is necessary at this time. This is likely an unusual arrhythmia that would require more complex ablation. He should continue on Eliquis 5 milligrams twice daily. (2) Elevated troponin: No chest pain. Subjective This morning the patient claims to be feeling well. He denies symptoms dizziness, palpitations, chest pain or breathing difficulty. He reports being ambulatory around his room. The nursing staff reports ambulation around the room but not around the hannah. Review of Systems Review of Systems: Per HPI Physical Exam Physical Exam: The patient is alert and oriented. Mood and affect appeared normal. He answered all questions appropriately. HEENT: Pupils are equal and reactive to light and accommodation. Extraocular movements are intact. The sclerae are anicteric. Neuro: Cranial nerves intact Lungs: Clear to auscultation bilaterally. He has good air movement without use of accessory muscles. No rales wheezes or rhonchi. Cardiac: Heart demonstrates an irregular rate and rhythm. Normal S1 and S2. No murmurs on examination. Pulses: The patient has palpable radial pulses bilaterally that are equal in intensity Extremities: There was no evidence of hypoperfusion. There is no cyanosis or clubbing. There is no edema. Skin: I did not appreciate any rashes on examination today. Results & Data Vital Signs (Past 12 Hours) Vital Signs Temp Pulse Pulse Resp BP BP Pulse Ox 03/18/19 07:52 36.6 C 100 H 16 123/82 98 03/18/19 03:50 36.6 C 97 H 16 133/84 97 03/17/19 23:25 36.7 C 97 H 18 103/75 96 Laboratory Results Abnormal Lab Results 03/17/19 03/17/19 03/17/19 10:04 10:04 22:47 WBC RBC Hgb Hct MCV MCH MCHC RDW Std Deviation RDW Coeff of [place] Plt Count MPV Immature Gran % (Auto) Neut % (Auto) Lymph % (Auto) [place] % (Auto) Eos % (Auto) Baso % (Auto) Immature Gran # (Auto) Neut # (Auto) Lymph # (Auto) [place] # (Auto) Eos # (Auto) Baso # (Auto) Sodium Potassium Chloride Carbon Dioxide Anion Gap BUN Creatinine Est Cr Clr Drug Dosing Est GFR ( Amer) Est GFR (Non-Af Amer) BUN/Creatinine Ratio Glucose Calcium Total Bilirubin AST ALT Alkaline Phosphatase Ammonia 19.0 Total Protein Albumin Globulin Albumin/Globulin Ratio Vitamin B12 625 Folate > 24.00 Urine Opiates Screen Neg Ur Methadone, Qual Neg Urine Barbiturates Neg Ur Phencyclidine (PCP) Neg U Amphetamin/Meth Scrn Neg MDMA (Ecstasy) Screen Neg U Benzodiazepines Scrn Neg Ur Cocaine Metabolite Neg U Marijuana (THC) Screen Neg 03/18/19 03/18/19 05:12 05:12 WBC 8.11 RBC 4.54 L Hgb 14.4 Hct 41.2 L MCV 90.7 MCH 31.7 MCHC 35.0 RDW Std Deviation 42.3 RDW Coeff of [place] 12.9 Plt Count 220 MPV 9.7 Immature Gran % (Auto) 0.4 Neut % (Auto) 62.9 Lymph % (Auto) 24.9 [place]pton % (Auto) 9.9 Eos % (Auto) 1.5 Baso % (Auto) 0.4 Immature Gran # (Auto) 0.03 H Neut # (Auto) 5.11 Lymph # (Auto) 2.02 Upton # (Auto) 0.80 H Eos # (Auto) 0.12 Baso # (Auto) 0.03 Sodium 139 Potassium 4.0 Chloride 106 Carbon Dioxide 27 Anion Gap 6.0 BUN 22 H Creatinine 1.28 Est Cr Clr Drug Dosing 53.9 Est GFR ( Amer) 63.5 Est GFR (Non-Af Amer) 54.8 BUN/Creatinine Ratio 16.9 Glucose 95 Calcium 8.6 Total Bilirubin 0.9 AST 18 ALT 26 Alkaline Phosphatase 80 Ammonia Total Protein 6.7 Albumin 3.3 L Globulin 3.4 Albumin/Globulin Ratio 1.0 Vitamin B12 Folate Urine Opiates Screen Ur Methadone, Qual Urine Barbiturates Ur Phencyclidine (PCP) U Amphetamin/Meth Scrn MDMA (Ecstasy) Screen U Benzodiazepines Scrn Ur Cocaine Metabolite U Marijuana (THC) Screen PG Care Time/CCT Total # of Minutes Spent Total Time Spent with Patient: Total time spent is greater than 50% in coordination of care (as documented) at patient's floor/unit and/or counseling patient:
[2019-03-18 11:29] VITALS: BP 113/68; PULSE 91; TEMP 98.2; O2SAT 97
--- NOTE | 2019-03-18 15:08 | Discharge Summary ---
Date of Service March 18, 2019 Admission HPI Per Admitting Provider Lidia Rodriguez is a 74-year-old male admitted medically on 03/14/19 for treatment and monitoring of atrial flutter. Pt was reportedly demonstrating episodes of confusion during his admission as well. Psychiatric consultation was requested to evaluate the patient for "dementia v delirium" and medication recommendations. Pt is seen along with our psychiatric nurse liaison. When asked how he is feeling, the patient states, "yup." He then comments, things seem going, people are all doing their jobs, working hard, you don't see anyone just sitting around." When asked what brought him to the ED, the patient states "I don't know why we did, we come down to get something done. 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 He reports his is supportive and he visits with his adult sons routinely. Pt does believe that his appetite has been somewhat reduced over the last several years, stating "when you get older your whole system is slower, you don't need to eat as much." He denies SI, stating "I don't want to think about that, let's go the other way." He denies significant psychiatric history, stating he has never received inpatient psychiatric treatment or been started on medications to target low mood or anxiety. Pt denies significant substance abuse. See Physical Examination for more in-depth mental status exam comments. Principal Diagnosis Atrial fibrillation with RVR Discharge Exam Constitutional WD/WN, vitals as above Eyes PERRL, conjunctivae normal, anicteric sclerae ENMT external ear and nose normal, oropharynx normal Neck trachea midline, no thyromegaly Respiratory normal respiratory effort, lungs clear to auscultation Cardiovascular Rate/Rhythm: + tachycardic and + irregularly irregular Heart Sounds: normal S1 and normal S2; no murmur Extremities: normal capillary refill; no edema Gastrointestinal (Abdomen) normal bowel sounds, soft, nontender, no hepatosplenomegaly Musculoskeletal no cyanosis or clubbing, extremities motor strength 5/5 Skin no rashes, warm and dry Neurologic patellar DTR's 2+ bilat, sensation intact and PERRL, EOMI, accommodation nl, no face palsy, no dysarthria Psychiatric Orientation: alert and oriented x 3 Cognition: + recent memory not intact Lymphatic no cervical or axillary lymphadenopathy Discharge Data Allergies Allergy/AdvReac Type Severity Reaction Status Date / Time No Known Allergies Allergy Verified 03/14/19 11:04 Consultations 03/14/19 12:38 ED Decision to Admit Stat 03/14/19 14:22 Consult Cardiology Routine 03/17/19 10:07 Consult Psychiatry Routine 03/17/19 21:40 Consult Neurology Routine Ordered Studies 03/17/19 09:38 CT head/brain wo con Stat Hospital Course (1) Atrial fibrillation: presented with SVT, was considered either Aflutter or Afib, morphology and response to rate control favors afib echo is normal rates are better controlled increasing Toprol from 50mg to 75mg ambulated in the halls today, peak HR was 115 while ambulating will titrate upward on Toprol to 100mg follow up with PCP in one week and with cardiology in several weeks, Dr. Tobin continue Eliquis 5mg BID for anticoagulation (2) Neurocognitive deficits: CT head: no acute intracranial abnormality. Likely age-related parenchymal volume loss Appreciate psychiatry recommendations neurology consult from Dr. Diallo appreciated, likely early dementia recommends MRI brain, due to scheduling conflicts could not be done until late evening 03/18 patient and both agreed to get it done outpatient as it was not urgent script provided and inventory control clerk helped to arrange will follow up with Dr. Diallo in 6-8 weeks in office, he would like to re- evaluate in outpatient setting follow up with Dr. Esteves in a week MRI results will be copied to both PCP and neurology B12 and folate normal RPR pending (3) GENE (acute kidney injury): Resolved with gentle IV fluid hydration. Creatinine returned to baseline, electrolytes stable (4) Hypertension: will stop Lisinopril 20mg daily titrate up on Toprol to 100mg daily (5) Gout: Continue allopurinol 200 mg p.o. daily. (6) DVT prophylaxis: On apixaban for A. fib's. (7) Hyperlipidemia: Continue atorvastatin 20 mg p.o. daily. Total Time Total Time Spent Total Time Spent (In Minutes): 37 minutes Total Time Includes: Examination of the Patient, Discharge Planning, Medication Reconciliation and Communication With Other Providers (Dr. Tobin, Dr. Diallo) Discharge Plan Discharge Items Patient Disposition: Home - Self-Care Reason For Visit: AFLUTTER Discharge Diagnosis: Atrial fibrillation Condition on Discharge: Good Goals: continue treatment for atrial fibrillation follow up with cardiology obtain MRI brain as outpatient follow up with neurology in 6-8 weeks Activity: Resume your previous activity Non-emergency contact: Primary Care Provider, Telegraph And Teletype Operator and Neurologist Call non-emergency contact if: you have any medication questions, your symptoms worsen and you have a fever Follow-up/Referrals: [facility] [Other] - 03/27/19 6:45 am (Please, follow up at [facility] for an MRI of the brain on MondayMarch 27 at 6:45 am. *You will report to the registration desk in the main lobby of the hospital. There is no special preparation for this test. If you need to reschedule this test, call the Central Scheduling office at [phone]. The results of the test will be sent to Dr. Esteves and Dr. Diallo (neurologist).) Hima Esteves MD [Primary Care Provider] - 03/25/19 2:00 pm (Please, follow up at Dr. Esteves's office with his associate, Lyndsay GUERRERO, on MondayMarch 25 at 2:00 pm. *If you need to change this appointment, call their office at [phone].) Raffi Diallo MD [Physician] - 03/27/19 10:15 am (Please, follow up at [facility] Neurology Office with Dr. Raffi Diallo on MondayMarch 27 at 10:15 am. *The office is located at [facility] in [place]. If you need to change this appointment, call the office at [phone].) Diet: Heart Healthy Add Attending Provider Instructions: Medications: - METOPROLOL: dose increased to 100mg from 50mg, this is for better rate control of atrial fibrillation - LISINOPRIL: stop this medication to allow for higher doses of metoprolol Atrial fibrillation: Dr. Tobin recommends a rate control strategy increased metoprolol from 50mg to 75mg rates were reasonably well controlled in 90-110 range will increase metoprolol further to 100mg in order to do this, will stop Lisinopril 20mg to allow for blood pressure to run higher recommend follow up with Dr. Tobin in 2-3 weeks recommend follow up with Dr. Esteves in one week Memory issues, confusion most likely some early dementia will get MRI brain outpatient, my nurse navigator will help arrange results will go to Dr. Esteves and Dr. Diallo recommend follow up with neurology in about 6-8 weeks Pending Studies at Discharge: No Stand-Alone Forms: My [facility] [employer], Smoking Cessation Medications and DC Order Prescriptions: New metoprolol succinate [Toprol XL] 100 mg tablet extended release 24 hr 100 mg PO DAILY Qty: 30 RF: 1 Continued allopurinol [Zyloprim] 100 mg tablet 200 mg PO DAILY Qty: 180 RF: 0 atorvastatin [Lipitor] 20 mg tablet 20 mg PO QPM RF: 0 Eliquis 5 mg tablet 5 mg PO BID RF: 0 Discontinued metoprolol succinate [Toprol XL] 50 mg tablet extended release 24 hr 50 mg PO DAILY RF: 0 lisinopril [Zestril] 20 mg tablet 20 mg PO DAILY Qty: 90 RF: 0 Discharge Orders: Discharge Order (Routine); Ordered 03/18/19 Ordered By: Shane Tello/Other Patient Handouts: AFL/Afib Admission Data Admit Date/Time: 03/14/19 13:08 Attending Provider: Shane Barrow Admit Provider: William Mendez Primary Care Provider: Hima Esteves Other Providers: William Mendez ; Hima Tobin ; Josefa García ; Eunice Castrejon Other Interventions: Discharge Summary Assessment (RN) Last Done: 03/18/19 14:41 DC Date/Time DO NOT enter until pt leaves facility: 03/18/19 14:57
== END 2019-03-18 14:57 | disposition home or self-care (01) | DRG 309 ==
LOC: ED 10:15 → SUATTDRO 13:08 → 2E 13:08

== ENCOUNTER 2019-11-04 20:13 | Inpatient (IN) ==
[2019-11-04] MEDS ORDERED: SODIUM CHLORIDE 0.9% 500 ML IV SCH (20:30)
[2019-11-04 20:33] LABS: Basophils # (auto) 0.02 K/uL (0-0.2); Basophils % (auto) 0.3 %; Eosinophils # (auto) 0.05 K/uL (0-0.5); Eosinophils % (auto) 0.7 %; Hematocrit (blood only) 42.7 % (42-52); Immature Granulocytes # (auto) 0.02 K/uL (0.00-0.02); Immature Granulocytes % (auto) 0.3 %; Lymphocytes % (auto) 26.8 %; Mean Corpuscular Hemoglobin 31.6 pg (25-34); Mean Corpuscular Hgb Conc 35.1 g/dL (32-36); Mean Corpuscular Volume 90.1 fL (80-100); Mean Platelet Volume 9.4 fL (7.4-10.4); Monocytes # (auto) 0.62 K/uL (0.11-0.59); Monocytes % (auto) 9.2 %; Neutrophils # (auto) 4.21 K/uL (1.4-6.5); Neutrophils % (auto) 62.7 %; Platelet Count 186 K/uL (130-400); RDW Coefficient of Variation 12.9 % (11.5-14.5); RDW Standard Deviation 42.1 fL (36.4-46.3); Red Blood Count 4.74 M/uL (4.7-6.1); White Blood Count 6.72 K/uL (4.8-10.8)
[2019-11-04 20:44] LABS: INR 1.1 (0.9-1.1); Partial Thromboplastin Ratio 1.1; Partial Thromboplastin Time 29.4 Seconds (21.0-31.0); Prothrombin Time 11.3 Seconds (9.0-12.0)
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
[2019-11-04 20:51] LABS: Alanine Aminotransferase 47 U/L (12-78); Albumin Level 3.8 gm/dl (3.4-5.0); Aspartate Aminotransferase 44 U/L (15-37); BUN Creatinine Ratio 11.3 (10-20); Blood Urea Nitrogen 15 mg/dl (7-18); Calcium 9.2 mg/dl (8.5-10.1); Carbon Dioxide 27 mmol/L (21-32); Chloride 107 mmol/L (98-107); Creatinine Clr Calc Pharmacy 50.8 ml/min; Est GFR (Non-African American) 50.9; Glucose 107 mg/dl (70-99); Lipase 180 U/L (73-393); Magnesium 2.2 mg/dl (1.8-2.4); Potassium 3.9 mmol/L (3.5-5.1); Sodium 141 mmol/L (136-145)
[2019-11-04 21:02] LABS: Albumin Globulin Ratio 1.1 (0.9-2); Alkaline Phosphatase 88 U/L (45-117); Creatine Kinase 96 U/L (39-308); Creatine Kinase MB < 1.0 ng/ml (0.5-3.6); Globulin 3.6 gm/dl (2.5-4.0); Total Protein 7.4 gm/dl (6.4-8.2); Troponin I < 0.015 ng/ml (0-0.045)
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
[2019-11-04 21:52] LABS: Appearance Urine Clear (Clear); Bilirubin Urine Negative (Negative); Blood Urine Negative (Negative); Color Urine Yellow; Glucose Urine UA Negative (Negative); Ketones Urine Negative (Negative); Leukocyte Esterase Urine Negative (Negative); Nitrite Urine Negative (Negative); Protein Urine Negative (Negative); Specific Gravity Urine 1.008 (1.000-1.030); Urobilinogen Urine Negative (Negative)
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
[2019-11-04] MEDS ORDERED: SODIUM CHLORIDE 0.9% 1000ML 1,000 ML IV SCH (23:59)
[2019-11-05] MEDS: METOPROLOL SUCC 50MG EXT REL TAB PO SCH (07:20)
--- NOTE | 2019-11-05 08:09 | Electrocardiogram Report ---
Test Reason : Blood Pressure : / mmHG Vent. Rate : 106 BPM Atrial Rate : 106 BPM P-R Int : 170 ms QRS Dur : 088 ms QT Int : 346 ms P-R-T Axes : 021 069 060 degrees QTc Int : 459 ms Poor data quality, interpretation may be adversely affected Sinus tachycardia Abnormal ECG When compared with ECG of 15-MAR-2019 06:49, Sinus rhythm has replaced Atrial fibrillation Confirmed by Melo Candelario ([id number]) on 11/05/2019 8:09:01 AM Referred By: REFERRED SELF Confirmed By:Melo Candelario
--- NOTE | 2019-11-05 08:10 | Electrocardiogram Report ---
Test Reason : Blood Pressure : / mmHG Vent. Rate : 105 BPM Atrial Rate : 105 BPM P-R Int : 224 ms QRS Dur : 106 ms QT Int : 334 ms P-R-T Axes : 051 069 046 degrees QTc Int : 441 ms Sinus tachycardia with 1st degree A-V block Abnormal ECG When compared with ECG of 04-NOV-2019 20:16, No significant change Confirmed by Melo Candelario ([id number]) on 11/05/2019 8:10:23 AM Referred By: REFERRED SELF Confirmed By:Melo Candelario
[2019-11-05] MEDS: allopurinoL 100 MG TAB PO SCH ×2 (08:39→20:30)
[2019-11-05] MEDS: APIXABAN 5 MG TABLET PO SCH ×2 (08:39→20:29)
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
[2019-11-05] MEDS: AMIODARONE 200 MG TAB PO SCH ×2 (10:22→16:23)
--- NOTE | 2019-11-05 11:45 | Electrocardiogram Report ---
Test Reason : Blood Pressure : / mmHG Vent. Rate : 066 BPM Atrial Rate : 066 BPM P-R Int : 250 ms QRS Dur : 084 ms QT Int : 406 ms P-R-T Axes : -13 066 051 degrees QTc Int : 425 ms Atrial flutter with variable A-V block Otherwise normal ECG When compared with ECG of 04-NOV-2019 20:18, Vent. rate has decreased BY 39 BPM In retrospect prior tracing may also be atrial flutter Confirmed by Melo Candelario ([id number]) on 11/05/2019 11:44:43 AM Referred By: REFERRED SELF Confirmed By:Melo Candelario
--- NOTE | 2019-11-05 20:07 | Billing Data ---
Date of Service November 05, 2019 Coding Level of Care Code 54590 Initial Inpt Care Lvl 3
[2019-11-05] MEDS ORDERED: DONEPEZIL HCL 5 MG TAB PO SCH (21:00)
[2019-11-05] MEDS ORDERED: ATORVASTATIN 20 MG TAB PO SCH (21:00)
--- NOTE | 2019-11-06 07:05 | Anesthesiology Consultation ---
Date of Service November 06, 2019 Assessment & Plan (1) Encounter for pre-operative examination: Chart Review Chart Review: Acceptable Risk for Surgery and Patient NOT seen in Pre Admission Testing Consults Requested none History Surgery Operation Date: 11/06/19 07:45 Proposed Procedures p Cardioversion Cert Occupational Therapy Asst w/Anesthesia - Hima Tobin MD Height/Weight Height: 5 ft 11 in Weight: 74.5 kg Allergies Allergy/AdvReac Type Severity Reaction Status Date / Time shellfish derived AdvReac Unknown SEE COMMENT Verified 11/04/19 20:20 Medications Home Medications Medication Instructions Recorded Confirmed Last Taken donepezil 5 mg tablet 5 mg PO HS 30 Days #30 tab 03/29/19 11/04/19 11/03/19 metoprolol succinate 100 mg 100 mg PO DAILY #90 tab 05/29/19 11/04/19 11/04/19 tablet,extended release 24 hr apixaban 5 mg tablet 5 mg PO BID #180 tab 06/21/19 11/04/19 11/04/19 08:00 atorvastatin 20 mg tablet 20 mg PO QPM #90 tab 10/08/19 11/04/19 11/03/19 allopurinol [Zyloprim] 100 mg PO BID 11/04/19 11/04/19 11/04/19 08:00 Active Medications Generic Name Dose Route Start Last Admin Trade Name Raymondq PRN Reason Stop Dose Admin Allopurinol 100 mg 11/05/19 09:00 11/05/19 20:30 Zyloprim PO 12/05/19 08:59 100 mg BID YASMINE Administration Amiodarone HCl 400 mg 11/05/19 08:55 11/05/19 16:23 Cordarone PO 12/05/19 08:54 400 mg BIDM YASMINE Administration Apixaban 5 mg 11/05/19 09:00 11/05/19 20:29 Eliquis PO 12/05/19 08:59 5 mg BID YASMINE Administration Atorvastatin Calcium 20 mg 11/05/19 21:00 11/05/19 20:30 Lipitor PO 12/05/19 20:59 20 mg QPM YASMINE Administration Donepezil HCl 5 mg 11/05/19 21:00 11/05/19 20:29 Aricept PO 12/05/19 20:59 5 mg HS YASMINE Administration Metoprolol Succinate 100 mg 11/05/19 09:00 11/05/19 07:20 Toprol Xl PO 12/05/19 08:59 100 mg DAILY YASMINE Administration Past Medical History Medical History Anemia (Acute) Atrial fibrillation Atrial flutter Cardiomyopathy (Acute) Gout Hyperlipemia Hypertension Neurocognitive deficits SDAT (senile dementia of Alzheimer's type) (Acute) SVT (supraventricular tachycardia) (Acute) Past Family History Family History Father Gout Tremor Past Surgical History Surgical History H/O cardiac radiofrequency ablation Social History Smoking Status: Never smoker Hx Alcohol Use: Yes Alcohol type: beer and hard liquor alcohol intake frequency: a few times a month Hx Substance Use: No substance use type: does not use Physical Exam Vital Signs Last Vital Signs Temp 36.6 C 11/06/19 03:29 Pulse 88 11/06/19 03:29 Resp 13 11/06/19 03:29 BP 158/109 H 11/06/19 03:29 Pulse Ox 96 11/06/19 03:29 Testing Laboratory Results 11/04/19 20:23 11/04/19 20:23 PT 11.3 Seconds (9.0-12.0) 11/04/19 20:23 INR 1.1 (0.9-1.1) 11/04/19 20:23 APTT 29.4 Seconds (21.0-31.0) 11/04/19 20:23 Urine Color Yellow 11/04/19 21:10 Urine Appearance Clear (Clear) 11/04/19 21:10 Urine pH 7.0 (4.5-7.5) 11/04/19 21:10 Ur Specific Aristes 1.008 (1.000-1.030) 11/04/19 21:10 Urine Protein Negative (Negative) 11/04/19 21:10 Urine Glucose (UA) Negative (Negative) 11/04/19 21:10 Urine Ketones Negative (Negative) 11/04/19 21:10 Urine Nitrite Negative (Negative) 11/04/19 21:10 Ur Leukocyte Esterase Negative (Negative) 11/04/19 21:10 Electrocardiogram Date: 12/05/19 Findings: + pertinent finding (Aflutter @ 66) Chest X-Ray Date: 12/04/19 Findings: + NAD Echocardiogram Date: 06/28/19 LV Function: normal Other Findings: + LVH Valvular Disease: + MR (mild)
[2019-11-06] MEDS ORDERED: ATROPINE SULFATE 0.1 MG/ML 10ML SYR IV PRN (07:47)
[2019-11-06] MEDS ORDERED: ePHEDrine sulfate 50 MG/ML AMP IV PRN (07:47)
--- NOTE | 2019-11-06 07:57 | Cardioversion ---
Date of Service November 06, 2019 PG Electrical Cardioversion Rp Electrical Cardioversion Report Procedure performed: Cardioversion Indication: Atrial flutter Staff clinical data management manager: Ankush Tobin MD Procedure in detail: The patient was informed of the risks benefits and alternatives to the intended procedure. He understood such which proceed. He was taken to the cardiac catheterization suite holding area. A general anesthetic was administered by the Anesthesiology Service. Once appropriately anesthetized, the patient was cardioverted using 50 joules delivered in a biphasic fashion. This returned the patient to sinus rhythm. The patient tolerated procedure well, there were no immediate complications. Patient was neurologically intact subsequent to the procedure. Impression: Successful cardioversion from atrial flutter to normal sinus rhythm Coding Level of Care Code Cardioversion, elective Additional Codes Electrical Cardioversion Report ([id number])
--- NOTE | 2019-11-06 08:05 | Anesthesiology Progress Note ---
Date of Service November 06, 2019 Anesthesia Post Procedure Vital Signs Vital Signs: Temp Pulse Pulse Resp BP BP Pulse Ox 11/06/19 03:29 36.6 C 88 13 158/109 H 96 11/06/19 00:00 71 11/05/19 23:43 36.7 C 68 18 153/93 H 95 11/05/19 20:18 36.5 C 71 19 140/100 98 11/05/19 19:04 66 11/05/19 16:00 36.5 C 55 L 20 147/89 H 96 11/05/19 11:56 36.4 C L 52 L 20 137/82 92 Transfer of Care Handoff Completed per policy Notes Mental Status: alert / awake / arousable Patient Amnestic to Procedure: Yes Nausea / Vomiting: adequately controlled Pain: adequately controlled Airway Patency, RR, SpO2: stable & adequate BP & HR: stable & adequate Hydration State: stable & adequate Anesthetic Complications: no major complications apparent
--- NOTE | 2019-11-06 08:40 | Cardiology Progress Note ---
Date of Service November 06, 2019 Assessment & Plan (1) Syncope: Unclear etiology but possibly related to his presenting arrhythmia. Curiously, he did not seem to have any hemodynamic instability associated with high ventricular rates here in the hospital. Based on the event and his underlying cognitive dysfunction he should no longer be driving. (2) Atrial flutter: Cardioverted to a sinus rhythm this morning. I would continue the amiodarone 400 milligrams twice daily for week and then reduce it to 200 milligrams daily. He will have some slowing of his heart rate with amiodarone and I think reducing his Toprol XL to 25 milligrams daily would be a reasonable 1st step. He could be discharged home today. He should follow up with me in the clinic in the next 2-4 weeks. (3) Mitral regurgitation: Moderate on echocardiogram in June 2019. Admission and Anticipated Discharge Date Admission Date: November 05, 2019 Subjective This morning the patient claims he feeling well. He was somewhat confused but answers all questions in appeared alert. He denies any symptoms of chest discomfort breathing difficulty. Review of Systems Review of Systems: Per HPI Physical Exam Physical Exam: The patient is alert. Confused at times. He answered all questions. HEENT: Pupils are equal and reactive to light and accommodation. Extraocular movements are intact. The sclerae are anicteric. Neuro: Cranial nerves intact Lungs: Clear to auscultation bilaterally. He has good air movement without use of accessory muscles. No rales wheezes or rhonchi. Cardiac: Heart demonstrates a regular rate and rhythm. Normal S1 and S2. No murmurs on examination. Pulses: The patient has palpable radial pulses bilaterally that are equal in intensity Extremities: There was no evidence of hypoperfusion. There is no cyanosis or clubbing. There is no edema. Skin: I did not appreciate any rashes on examination today. Results & Data ([facility]) Vital Signs (Past 12 Hours) Vital Signs Temp Pulse Pulse Resp BP BP Pulse Ox 11/06/19 03:29 36.6 C 88 13 158/109 H 96 11/06/19 00:00 71 11/05/19 23:43 36.7 C 68 18 153/93 H 95 PG Care Time/CCT Total # of Minutes Spent Total Time Spent with Patient: Total time spent is greater than 50% in coordination of care (as documented) at patient's floor/unit and/or counseling patient: Coding Level of Care Code 54087 Subseq Hosp Care Lvl 2 Diagnoses Syncope R55 Syncope type: unspecified Atrial flutter I48.92 Mitral regurgitation I34.0 (1) Syncope Syncope type: unspecified Qualified Code(s): R55 - Syncope and collapse
[2019-11-06] MEDS: AMIODARONE 200 MG TAB PO SCH (08:43)
[2019-11-06] MEDS: METOPROLOL SUCC 50MG EXT REL TAB PO SCH (08:43)
[2019-11-06] MEDS: APIXABAN 5 MG TABLET PO SCH (08:43)
[2019-11-06] MEDS: allopurinoL 100 MG TAB PO SCH (08:44)
[2019-11-06] MEDS ORDERED: PROPOFOL IV EMULSION 10 MG/ML 20 ML VIAL IV ONE (11:23)
[2019-11-06] MEDS ORDERED: LIDOCAINE HCL 2% 2 ML VIAL/AMP(20MG/ML) INFIL ONE (11:23)
--- NOTE | 2019-11-06 14:41 | Electrocardiogram Report ---
Test Reason : Blood Pressure : / mmHG Vent. Rate : 100 BPM Atrial Rate : 100 BPM P-R Int : 226 ms QRS Dur : 092 ms QT Int : 368 ms P-R-T Axes : 038 068 050 degrees QTc Int : 474 ms Atrial flutter with 4:1 A-V block Abnormal ECG When compared with ECG of 05-NOV-2019 09:11, Vent. rate has increased BY 34 BPM Otherwise no significant change Confirmed by Melo Candelario ([id number]) on 11/06/2019 2:41:06 PM Referred By: REFERRED SELF Confirmed By:Melo Candelario
--- NOTE | 2019-11-07 08:08 | Electrocardiogram Report ---
Test Reason : Blood Pressure : / mmHG Vent. Rate : 061 BPM Atrial Rate : 061 BPM P-R Int : 178 ms QRS Dur : 094 ms QT Int : 434 ms P-R-T Axes : 034 064 052 degrees QTc Int : 436 ms Normal sinus rhythm Normal ECG When compared with ECG of 06-NOV-2019 07:00, Sinus rhythm has replaced Atrial flutter Vent. rate has decreased BY 39 BPM Confirmed by Melo Candelario ([id number]) on 11/07/2019 8:07:48 AM Referred By: REFERRED SELF Confirmed By:Melo Candelario
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
== END 2019-11-06 16:23 | disposition home or self-care (01) | DRG 310 ==
LOC: ED 20:13 → SUATTDRO 23:27 → INTOOBSV 23:27 → 1E 23:27

== ENCOUNTER 2021-12-07 17:34 | Inpatient (IN) ==
[2021-12-07] MEDS ORDERED: ACETAMINOPHEN 1000 MG/100 ML IV IV STA (17:53)
[2021-12-07] MEDS ORDERED: CEFEPIME 2,000 MG/20 ML VIAL IV STA (17:53)
[2021-12-07] MEDS ORDERED: SODIUM CHLORIDE 0.9% 1000ML 1,000 ML IV SCH ×2 (18:00→20:47)
[2021-12-07 18:22] LABS: Basophils # (auto) 0.02 K/uL (0-0.2); Basophils % (auto) 0.2 %; Eosinophils # (auto) 0.01 K/uL (0-0.50); Eosinophils % (auto) 0.1 %; Hematocrit (blood only) 38.5 % (40.1-51.0); Hemoglobin 13.3 g/dl (14.0-18.0); Immature Granulocytes # (auto) 0.04 K/uL (0.00-0.02); Immature Granulocytes % (auto) 0.4 %; Lymphocytes # (auto) 0.68 K/uL (1.2-3.4); Lymphocytes % (auto) 7.6 %; Mean Corpuscular Hemoglobin 31.7 pg (25.0-34.0); Mean Corpuscular Hgb Conc 34.5 g/dL (32.0-36.0); Mean Corpuscular Volume 91.7 fL (80.0-100.0); Mean Platelet Volume 9.7 fL (9.4-12.4); Monocytes # (auto) 0.63 K/uL (0.24-0.82); Neutrophils # (auto) 7.58 K/uL (1.4-6.5); Neutrophils % (auto) 84.7 %; Platelet Count 182 K/uL (130-400); RDW Coefficient of Variation 12.5 % (11.5-14.5); RDW Standard Deviation 41.4 fL (36.4-46.3); White Blood Count 8.96 K/ul (4.8-10.8)
--- NOTE | 2021-12-07 18:24 | Emergency Department Note ---
Impression & Plan Altered mental status, Dementia, Fever, COVID-19 ED Provider Note NAME: BERNADETTE SENA AGE: 76 SEX: M : 1945 ARRIVES VIA: Ambulance INFORMANT: [nursing, staff, ems] ED PROVIDER(S): [Chase De La Rosa MD] CHIEF COMPLAINT: Weakness HISTORY OF PRESENT ILLNESS: The patient is a 76-year-old male who was found wandering outside by his . She called the fire department to help him back into the house. The patient was found to be weak and not himself. They thought his left leg was the weakest part of his body. He was brought for evaluation. Upon arrival, he was found to be febrile at about 103. The patient is currently nonverbal. He does have dementia and Parkinson's. No further history obtainable as there is no family member at the bedside. REVIEW OF SYSTEMS: Unobtainable given the mental state. PMHx/PSHx: See Below SOCIAL HISTORY: See Below. PHYSICAL EXAM: GENERAL: Patient is in no acute distress. HEENT: No acute trauma, normocephalic atraumatic, mucous membranes moist, no nasal congestion, no scleral icterus. NECK: No stridor, no adenopathy, no meningismus, trachea is midline. LUNGS: Clear to auscultation bilaterally, no wheeze, no rhonchi, breath sounds equal. HEART: Without murmurs gallops or rubs, regular rate and rhythm. ABDOMEN: Soft, nontender, bowel sounds positive, no peritonitis. EXTREMITIES: No cyanosis or edema, full range of motion of all the joints without pain or difficulty, no signs for acute trauma. NEUROLOGIC: Awake, currently nonverbal, no acute motor or sensory deficits, no focal weakness. Extremity tremor noted consistent with Parkinson's. SKIN: No rash, no jaundice, no diaphoresis. Groin: No rash. DIFFERENTIAL DIAGNOSIS: Sepsis, UTI, pneumonia, COVID-19, metabolic abnormality, electrolyte abnormalities, cardiac sources, cellulitis, bacteremia, intracerebral event, toxicologic etiology, neurologic event, as well as other pathologies. EMERGENCY DEPARTMENT COURSE/PROCEDURES: ECG: Indication was weakness. The ECG shows a normal sinus rhythm with a rate of 61. There is some baseline artifact. No ST elevation, no PVCs. The QTc is 420. Continuous Cardiac Monitoring: An order was placed for continuous cardiac monitoring. The monitor shows a rate of 66 with normal sinus rhythm. Critical Care Note: I have personally spent 41 minutes of critical care time in the direct management of this patient. This includes bedside care, interpretation of diagnostic studies, and testing, discussion with consultants, patient, and family members, and other required patient management activities. This 41 minutes is in excess of all separately billable procedures. MEDICAL DECISION MAKING: There is no leukocytosis. A very mild anemia was noted. There was a normal platelet count. No coagulopathy. No renal failure or significant electrolyte abnormality. Lactic acid level was not elevated making sepsis less likely. No concerning liver enzyme elevation. Procalcitonin level was not elevated. ECG shows a normal sinus rhythm, no obvious ischemia. Cardiac enzyme testing x1 is not consistent with acute cardiac injury. Urinalysis does not show infection. Lyme disease testing was negative. COVID test did return positive. Chest x-ray did not show pneumonia or CHF. Brain CT showed no acute bleed or mass-effect. On exam, the patient did have some tremor, he was febrile. The patient received IV saline, 2 L. He was given IV cefepime and IV Tylenol. The patient presents with confusion, a fever. It appears that he has COVID-19 as the cause for his complaints/symptoms. The patient is in need of a hospital stay. He is not currently stable for discharge home. I did speak with the patient and the patient's family. I spoke with the disease case manager. The on-call hospitalist was consulted. Past Med/Surg History Medical History (Updated 12/07/21 @ 23:01 by Chase De La Rosa MD) Anemia Atrial fibrillation Atrial flutter Cardiomyopathy Gout Hyperlipemia Hypertension Neurocognitive deficits SDAT (senile dementia of Alzheimer's type) SVT (supraventricular tachycardia) Surgical History H/O cardiac radiofrequency ablation Family History Father Gout Tremor Social History Smoking Status: Unknown if ever smoked Second Hand Exposure: No; Hx Alcohol Use: Yes Alcohol type: beer and hard liquor Hx Substance Use: No Preferred Language: [place] Verde[place] Communication Ability: Effective Manager Application Required: No Beliefs That Will Affect Care: None Current Living Situation: Spouse Feels Safe at Home: Yes Assistive Devices: Hearing Aid - Bilateral Allergies Allergies Allergy/AdvReac Type Severity Reaction Status Date / Time shellfish derived AdvReac Unknown D/T Verified 12/07/21 19:46 GOUT--DOESN'T EAT. Home Meds Home Medications Medication Instructions Recorded Confirmed ketoconazole 2 % topical cream 1 applic topical DAILY 12/07/21 12/07/21 terbinafine HCl 250 mg tablet 250 mg PO QPM 12/07/21 12/07/21 Previous Rx's Medication Instructions Recorded lisinopril 10 mg tablet 10 mg PO DAILY #90 tabs 02/26/21 carbidopa 25 mg-levodopa 100 mg 1 tab PO TID #270 tabs 03/12/21 tablet donepezil 10 mg tablet 10 mg PO HS 90 days #90 tabs 03/12/21 cholecalciferol (vitamin D3) 50 50 mcg PO BID 90 days #180 caps 08/10/21 mcg (2,000 unit) capsule metoprolol succinate 50 mg 50 mg PO DAILY #90 tabs 08/12/21 tablet,extended release 24 hr apixaban 5 mg tablet (Eliquis) 5 mg PO BID #180 tabs 09/01/21 allopurinol 100 mg tablet 100 mg PO DAILY #90 tabs 11/19/21 (Zyloprim) atorvastatin 20 mg tablet (Lipitor) 20 mg PO QPM #90 tabs 11/29/21 Results & Data (ED) Vital Signs Vital Signs - 24 hr 12/07/21 17:25 12/07/21 17:36 12/07/21 17:54 Temperature 39.1 C H Temperature Source Oral Pulse Rate 59 L Pulse Rate [Apical] 60 Pulse Rhythm Regular Pulse Rhythm [Apical] Pulse Strength Normal Respiratory Rate 20 18 18 Respiratory Effort / Characteristics Non-Labored Non-Labored Spontaneous Non-Labored Spontaneous Respiratory Depth Normal Normal Respiratory Pattern Regular Blood Pressure 135/72 Blood Pressure [Right Arm] 130/72 Blood Pressure Mean 93 Blood Pressure Mean [Right Arm] 91 Blood Pressure Position [Right Arm] Lying Pulse Oximetry 97 95 96 Oxygen Delivery Method Room Air Room Air Room Air Sepsis Recent Fever Within 48 Hours Yes Sepsis New/Unexplained Change in Mental Status No Sepsis Action Taken by Nursing No Action Required 12/07/21 19:00 12/07/21 19:00 12/07/21 19:00 Temperature 37.3 C Temperature Source Oral Pulse Rate Pulse Rate [Apical] 65 Pulse Rhythm Pulse Rhythm [Apical] Regular Pulse Strength Respiratory Rate 16 Respiratory Effort / Characteristics Non-Labored Non-Labored Respiratory Depth Normal Respiratory Pattern Blood Pressure Blood Pressure [Right Arm] 97/56 L Blood Pressure Mean Blood Pressure Mean [Right Arm] 69 Blood Pressure Position [Right Arm] Pulse Oximetry 96 96 Oxygen Delivery Method Room Air Room Air Sepsis Recent Fever Within 48 Hours Sepsis New/Unexplained Change in Mental Status Sepsis Action Taken by Nursing 12/07/21 20:00 12/07/21 20:00 12/07/21 21:00 Temperature Temperature Source Pulse Rate Pulse Rate [Apical] 69 64 Pulse Rhythm Pulse Rhythm [Apical] Regular Regular Pulse Strength Respiratory Rate 16 18 Respiratory Effort / Characteristics Non-Labored Non-Labored Non-Labored Respiratory Depth Normal Normal Respiratory Pattern Blood Pressure Blood Pressure [Right Arm] 107/58 L 106/55 L Blood Pressure Mean Blood Pressure Mean [Right Arm] 74 72 Blood Pressure Position [Right Arm] Pulse Oximetry 94 94 96 Oxygen Delivery Method Room Air Room Air Room Air Sepsis Recent Fever Within 48 Hours Sepsis New/Unexplained Change in Mental Status Sepsis Action Taken by Nursing 12/07/21 22:00 Temperature Temperature Source Pulse Rate Pulse Rate [Apical] 66 Pulse Rhythm Pulse Rhythm [Apical] Regular Pulse Strength Respiratory Rate 16 Respiratory Effort / Characteristics Non-Labored Respiratory Depth Normal Respiratory Pattern Blood Pressure Blood Pressure [Right Arm] 117/63 Blood Pressure Mean Blood Pressure Mean [Right Arm] 81 Blood Pressure Position [Right Arm] Pulse Oximetry 95 Oxygen Delivery Method Room Air Sepsis Recent Fever Within 48 Hours Sepsis New/Unexplained Change in Mental Status Sepsis Action Taken by Long-Term Medications Current Medication List: was personally reviewed by me Laboratory Data Attestation: I reviewed the patient's lab results. Result diagrams: 12/07/21 17:56 12/07/21 17:56 Lab Results 12/07/21 12/07/21 12/07/21 Range/Units 17:56 17:56 17:56 WBC 8.96 (4.8-10.8) K/ul RBC 4.20 L (4.63-6.08) M/uL Hgb 13.3 L (14.0-18.0) g/dl Hct 38.5 L (40.1-51.0) % MCV 91.7 (80.0-100.0) fL MCH 31.7 (25.0-34.0) pg MCHC 34.5 (32.0-36.0) g/dL RDW Std Deviation 41.4 (36.4-46.3) fL RDW Coeff of [place] 12.5 (11.5-14.5) % Plt Count 182 (130-400) K/uL MPV 9.7 (9.4-12.4) fL Immature Gran % (Auto) 0.4 % Neut % (Auto) 84.7 % Lymph % (Auto) 7.6 % [place] % (Auto) 7.0 % Eos % (Auto) 0.1 % Baso % (Auto) 0.2 % Neut # (Auto) 7.58 H (1.4-6.5) K/uL Lymph # (Auto) 0.68 L (1.2-3.4) K/uL [place] # (Auto) 0.63 (0.24-0.82) K/uL Eos # (Auto) 0.01 (0-0.50) K/uL Baso # (Auto) 0.02 (0-0.2) K/uL Immature Gran # (Auto) 0.04 H (0.00-0.02) K/uL PT 11.5 (9.0-12.0) Seconds INR 1.1 (0.9-1.1) APTT 30.2 (21.0-31.0) Seconds PTT Ratio 1.1 Sodium (136-145) mmol/L Potassium (3.5-5.1) mmol/L Chloride (98-107) mmol/L Carbon Dioxide (21-32) mmol/L Anion Gap (3-11) BUN (6-23) mg/dl Creatinine (0.6-1.4) mg/dl Est Cr Clr Drug Dosing ml/min Est GFR ( Amer) ml/min Est GFR (Non-Af Amer) ml/min BUN/Creatinine Ratio (10-20) Glucose (70-99(Fasting)) mg/dl Lactate (0.4-2.0) mmol/L Calcium (8.5-10.1) mg/dl Magnesium (1.7-2.4) mg/dl Total Bilirubin (0.2-1.0) mg/dl AST (13-39) U/L ALT (7-52) U/L Alkaline Phosphatase (34-104) U/L Troponin I High Sens (0-20) pg/ml Total Protein (6.0-8.3) gm/dl Albumin (3.4-5.0) gm/dl Globulin (2.5-4.0) gm/dl Albumin/Globulin Ratio (0.9-2) Procalcitonin < 0.05 (0-0.5) ng/ml Urine Color Urine Appearance (Clear) Urine pH (4.5-7.5) Ur Specific [place] (1.000-1.030) Urine Protein (Negative) Urine Glucose (UA) (Negative) Urine Ketones (Negative) Urine Blood (Negative) Urine Nitrite (Negative) Urine Bilirubin (Negative) Urine Urobilinogen (Negative) Ur Leukocyte Esterase (Negative) Lyme Disease IgG Ab Negative (Negative) Lyme Disease IgM Ab Negative (Negative) SARS-CoV-2 (PCR) (Negative) Influenza Type A (PCR) (Neg) Influenza Type B (PCR) (Neg) RSV (RT-PCR) (Neg) 12/07/21 12/07/21 12/07/21 Range/Units 17:56 17:56 20:55 WBC (4.8-10.8) K/ul RBC (4.63-6.08) M/uL Hgb (14.0-18.0) g/dl Hct (40.1-51.0) % MCV (80.0-100.0) fL MCH (25.0-34.0) pg MCHC (32.0-36.0) g/dL RDW Std Deviation (36.4-46.3) fL RDW Coeff of [place] (11.5-14.5) % Plt Count (130-400) K/uL MPV (9.4-12.4) fL Immature Gran % (Auto) % Neut % (Auto) % Lymph % (Auto) % [place] % (Auto) % Eos % (Auto) % Baso % (Auto) % Neut # (Auto) (1.4-6.5) K/uL Lymph # (Auto) (1.2-3.4) K/uL [place] # (Auto) (0.24-0.82) K/uL Eos # (Auto) (0-0.50) K/uL Baso # (Auto) (0-0.2) K/uL Immature Gran # (Auto) (0.00-0.02) K/uL PT (9.0-12.0) Seconds INR (0.9-1.1) APTT (21.0-31.0) Seconds PTT Ratio Sodium 138 (136-145) mmol/L Potassium 4.2 (3.5-5.1) mmol/L Chloride 102 (98-107) mmol/L Carbon Dioxide 30 (21-32) mmol/L Anion Gap 6 (3-11) BUN 18 (6-23) mg/dl Creatinine 1.11 (0.6-1.4) mg/dl Est Cr Clr Drug Dosing 58.5 ml/min Est GFR ( Amer) 74.4 ml/min Est GFR (Non-Af Amer) 64.2 ml/min BUN/Creatinine Ratio 16.2 (10-20) Glucose 95 (70-99(Fasting)) mg/dl Lactate 1.5 (0.4-2.0) mmol/L Calcium 9.2 (8.5-10.1) mg/dl Magnesium 1.9 (1.7-2.4) mg/dl Total Bilirubin 1.2 H (0.2-1.0) mg/dl AST 19 (13-39) U/L ALT 11 (7-52) U/L Alkaline Phosphatase 77 (34-104) U/L Troponin I High Sens 9.8 (0-20) pg/ml Total Protein 7.2 (6.0-8.3) gm/dl Albumin 4.3 (3.4-5.0) gm/dl Globulin 2.9 (2.5-4.0) gm/dl Albumin/Globulin Ratio 1.5 (0.9-2) Procalcitonin (0-0.5) ng/ml Urine Color Urine Appearance (Clear) Urine pH (4.5-7.5) Ur Specific [place] (1.000-1.030) Urine Protein (Negative) Urine Glucose (UA) (Negative) Urine Ketones (Negative) Urine Blood (Negative) Urine Nitrite (Negative) Urine Bilirubin (Negative) Urine Urobilinogen (Negative) Ur Leukocyte Esterase (Negative) Lyme Disease IgG Ab (Negative) Lyme Disease IgM Ab (Negative) SARS-CoV-2 (PCR) POSITIVE A* (Negative) Influenza Type A (PCR) Negative (Neg) Influenza Type B (PCR) Negative (Neg) RSV (RT-PCR) Negative (Neg) 12/07/21 Range/Units Unknown WBC (4.8-10.8) K/ul RBC (4.63-6.08) M/uL Hgb (14.0-18.0) g/dl Hct (40.1-51.0) % MCV (80.0-100.0) fL MCH (25.0-34.0) pg MCHC (32.0-36.0) g/dL RDW Std Deviation (36.4-46.3) fL RDW Coeff of [place] (11.5-14.5) % Plt Count (130-400) K/uL MPV (9.4-12.4) fL Immature Gran % (Auto) % Neut % (Auto) % Lymph % (Auto) % [place] % (Auto) % Eos % (Auto) % Baso % (Auto) % Neut # (Auto) (1.4-6.5) K/uL Lymph # (Auto) (1.2-3.4) K/uL [place] # (Auto) (0.24-0.82) K/uL Eos # (Auto) (0-0.50) K/uL Baso # (Auto) (0-0.2) K/uL Immature Gran # (Auto) (0.00-0.02) K/uL PT (9.0-12.0) Seconds INR (0.9-1.1) APTT (21.0-31.0) Seconds PTT Ratio Sodium (136-145) mmol/L Potassium (3.5-5.1) mmol/L Chloride (98-107) mmol/L Carbon Dioxide (21-32) mmol/L Anion Gap (3-11) BUN (6-23) mg/dl Creatinine (0.6-1.4) mg/dl Est Cr Clr Drug Dosing ml/min Est GFR ( Amer) ml/min Est GFR (Non-Af Amer) ml/min BUN/Creatinine Ratio (10-20) Glucose (70-99(Fasting)) mg/dl Lactate (0.4-2.0) mmol/L Calcium (8.5-10.1) mg/dl Magnesium (1.7-2.4) mg/dl Total Bilirubin (0.2-1.0) mg/dl AST (13-39) U/L ALT (7-52) U/L Alkaline Phosphatase (34-104) U/L Troponin I High Sens (0-20) pg/ml Total Protein (6.0-8.3) gm/dl Albumin (3.4-5.0) gm/dl Globulin (2.5-4.0) gm/dl Albumin/Globulin Ratio (0.9-2) Procalcitonin (0-0.5) ng/ml Urine Color Yellow Urine Appearance Clear (Clear) Urine pH 6.5 (4.5-7.5) Ur Specific [place] 1.026 (1.000-1.030) Urine Protein Negative (Negative) Urine Glucose (UA) Negative (Negative) Urine Ketones Trace H (Negative) Urine Blood Negative (Negative) Urine Nitrite Negative (Negative) Urine Bilirubin Negative (Negative) Urine Urobilinogen Negative (Negative) Ur Leukocyte Esterase Negative (Negative) Lyme Disease IgG Ab (Negative) Lyme Disease IgM Ab (Negative) SARS-CoV-2 (PCR) (Negative) Influenza Type A (PCR) (Neg) Influenza Type B (PCR) (Neg) RSV (RT-PCR) (Neg) Administered Medications Discontinued Medications Acetaminophen (Acetaminophen 1000 Mg/100 Ml Iv) 1,000 mg IV NOW STA Stop: 12/07/21 17:54 Last Admin: 12/07/21 18:05 Dose: 1,000 mg Documented By: ROSA MARIA Sodium Chloride (Nss 1000ml) 1,000 mls @ 999 mls/hr IV .Q1H1M YASMINE Stop: 12/07/21 19:00 Last Infusion: 12/07/21 19:42 Dose: 0 mls/hr Documented By: Admin: 12/07/21 18:05 Dose: 999 mls/hr Documented By: HS Cefepime HCl (Maxipime) 2,000 mg in 20 mls @ 5 mls/min IV NOW STA; Protocol Stop: 12/07/21 17:56 Last Admin: 12/07/21 18:05 Dose: 5 mls/min Documented By: ROSA MARIA Sodium Chloride (Nss 1000ml) 1,000 mls @ 999 mls/hr IV .Q1H1M YASMINE Stop: 12/07/21 21:47 Last Infusion: 12/07/21 22:34 Dose: 0 mls/hr Documented By: Admin: 12/07/21 21:29 Dose: 999 mls/hr Documented By: WILI Imaging Data Radiologist's Impression: Head CT 12/07/21 17:53 CT SCAN OF THE BRAIN WITHOUT IV CONTRAST CLINICAL HISTORY: Change in mental status. COMPARISON STUDY: CT of the brain dated 11/04/2019. TECHNIQUE: Unenhanced axial CT scan of the brain is performed from the vertex to the skull base. A dose lowering technique was utilized adhering to the principles of ALARA. CT DOSE: 884.08 mGy.cm FINDINGS: Brain parenchyma: There is age-related involutional change noting mild subcortical and periventricular microangiopathic disease. There is no hemorrhage, mass effect, or evidence of acute territorial ischemia by CT criteria. [place]-white matter differentiation is preserved. No extra-axial fluid collection is seen. Ventricles, sulci, cisterns: Prominent secondary to involutional change. Intracranial vasculature: There is atherosclerotic calcification of the cavernous carotid and vertebral arteries. Calvarium: Unremarkable. Sinuses and mastoids: There is mild mucosal thickening in the left maxillary antrum. The remaining visualized paranasal sinuses are clear. The mastoid air cells are well pneumatized. Soft tissues: Metallic foreign bodies are seen deep to the left zygomatic arch. Orbits: The bony orbits are grossly intact. IMPRESSION: There is no hemorrhage, mass effect, or evidence of acute territorial ischemia by CT criteria. ACT 112: Negative or not required by law. Electronically signed by: Chase Patricia M.D. 12/07/2021 6:40 PM Chest X-Ray 12/07/21 17:54 SINGLE VIEW CHEST CLINICAL HISTORY: Sepsis. FINDINGS: An AP, portable, upright chest radiograph is compared to study dated 11/04/2019. The heart is mildly enlarged noting atherosclerotic calcification of the thoracic aorta. The pulmonary vasculature is noncongested. Chronic interstitial thickening is similar to previous. There is mild bibasilar scarring/atelectasis. The lungs and pleural spaces are otherwise clear. A skin fold projects over the left apex. No pneumothorax is seen. The skeletal structures are osteopenic. The bony thorax is grossly intact. IMPRESSION: Cardiomegaly with no acute cardiopulmonary abnormality identified. ACT 112: Negative or not required by law. Electronically signed by: Chase Patricia M.D. 12/07/2021 8:01 PM Discharge Plan Visit Data Chief Complaint: Leg Injury/Pain Stated Complaint: right leg weakness ED Provider: Chase De La Rosa Discharge Problem: Altered mental status, Dementia, Fever, COVID-19 Patient Disposition: Admitted As Inpatient Condition: Fair Forms Stand Alone Forms: [facility] Prescriptions Prescriptions: No Action cholecalciferol (vitamin D3) 50 mcg (2,000 unit) capsule 50 mcg PO BID 90 Days Qty: 180 1RF metoprolol succinate 50 mg tablet extended release 24 hr 50 mg PO DAILY Qty: 90 1RF Eliquis 5 mg tablet 5 mg PO BID Qty: 180 3RF allopurinol [Zyloprim] 100 mg tablet 100 mg PO DAILY Qty: 90 3RF atorvastatin [Lipitor] 20 mg tablet 20 mg PO QPM Qty: 90 3RF carbidopa-levodopa 25-100 mg tablet 1 tab PO TID Qty: 270 4RF donepezil 10 mg tablet 10 mg PO HS 90 Days Qty: 90 4RF lisinopril 10 mg tablet 10 mg PO DAILY Qty: 90 3RF ketoconazole 2 % cream 1 applic topical DAILY Rx Instructions: Apply to the affected areas--LEFT HAND, LEFT INNER THIGH, RIGHT KNEE AREAS. terbinafine HCl 250 mg tablet 250 mg PO QPM Referrals Referrals: Ankush Esteves MD [Primary Care Provider] -
[2021-12-07 18:32] LABS: INR 1.1 (0.9-1.1); Partial Thromboplastin Ratio 1.1; Partial Thromboplastin Time 30.2 Seconds (21.0-31.0); Prothrombin Time 11.5 Seconds (9.0-12.0)
--- NOTE | 2021-12-07 18:41 | CT Scan Report ---
CT SCAN OF THE BRAIN WITHOUT IV CONTRAST CLINICAL HISTORY: Change in mental status. COMPARISON STUDY: CT of the brain dated 11/04/2019. TECHNIQUE: Unenhanced axial CT scan of the brain is performed from the vertex to the skull base. A do se lowering technique was utilized adhering to the principles of ALARA. CT DOSE: 884.08 mGy.cm FINDINGS: Brain parenchyma: There is age-related involutional change noting mild subcortical and periventricula r microangiopathic disease. There is no hemorrhage, mass effect, or evidence of acute territorial isc hemia by CT criteria. [place]-white matter differentiation is preserved. No extra-axial fluid collection is seen. Ventricles, sulci, cisterns: Prominent secondary to involutional change. Intracranial vasculature: There is atherosclerotic calcification of the cavernous carotid and vertebr al arteries. Calvarium: Unremarkable. Sinuses and mastoids: There is mild mucosal thickening in the left maxillary antrum. The remaining vi sualized paranasal sinuses are clear. The mastoid air cells are well pneumatized. Soft tissues: Metallic foreign bodies are seen deep to the left zygomatic arch. Orbits: The bony orbits are grossly intact. IMPRESSION: There is no hemorrhage, mass effect, or evidence of acute territorial ischemia by CT tani grant. ACT 112: Negative or not required by law. Electronically signed by: Chase Patricia M.D. 12/07/2021 6:40 PM
[2021-12-07 18:44] LABS: Albumin Globulin Ratio 1.5 (0.9-2); Albumin Level 4.3 gm/dl (3.4-5.0); BUN Creatinine Ratio 16.2 (10-20); Bilirubin,Total 1.2 mg/dl (0.2-1.0); Calcium 9.2 mg/dl (8.5-10.1); Creatinine Clr Calc Pharmacy 58.5 ml/min; Est GFR (African American) 74.4 ml/min; Est GFR (Non-African American) 64.2 ml/min; Globulin 2.9 gm/dl (2.5-4.0); Magnesium 1.9 mg/dl (1.7-2.4); Potassium 4.2 mmol/L (3.5-5.1); Total Protein 7.2 gm/dl (6.0-8.3)
[2021-12-07 18:50] LABS: Troponin I High Sensitivity 9.8 pg/ml (0-20)
[2021-12-07 19:07] LABS: Procalcitonin < 0.05 ng/ml (0-0.5)
[2021-12-07 19:13] LABS: Lyme Ab IgG w/WB Rflx Negative (Negative); Lyme Ab IgM w/WB Rflx Negative (Negative)
--- NOTE | 2021-12-07 20:02 | XRay Report ---
SINGLE VIEW CHEST CLINICAL HISTORY: Sepsis. FINDINGS: An AP, portable, upright chest radiograph is compared to study dated 11/04/2019. The heart i s mildly enlarged noting atherosclerotic calcification of the thoracic aorta. The pulmonary vasculatu re is noncongested. Chronic interstitial thickening is similar to previous. There is mild bibasilar s carring/atelectasis. The lungs and pleural spaces are otherwise clear. A skin fold projects over the left apex. No pneumothorax is seen. The skeletal structures are osteopenic. The bony thorax is grossl y intact. IMPRESSION: Cardiomegaly with no acute cardiopulmonary abnormality identified. ACT 112: Negative or not required by law. Electronically signed by: Chase Patricia M.D. 12/07/2021 8:01 PM
[2021-12-07 21:21] LABS: Appearance Urine Clear (Clear); Bilirubin Urine Negative (Negative); Blood Urine Negative (Negative); Color Urine Yellow; Glucose Urine UA Negative (Negative); Ketones Urine Trace (Negative); Leukocyte Esterase Urine Negative (Negative); Nitrite Urine Negative (Negative); Protein Urine Negative (Negative); Specific Gravity Urine 1.026 (1.000-1.030); Urobilinogen Urine Negative (Negative); pH Urine 6.5 (4.5-7.5)
--- NOTE | 2021-12-07 21:21 | History & Physical Report ---
Date of Service December 07, 2021 Assessment & Plan (1) Sepsis: Plan: This is a 76-year-old male with a past medical history of Parkinson's disease with dementia who presented to the emergency department due to a fall, fever, and increased confusion. Patient has been given IV fluids and antibiotics which has resolved his fever. Patient is hemodynamically stable. Sepsis -Patient came in with a fever of 103 F with evidence of acute worsening of dementia -Admit patient to the hospital for antibiotic therapy and fluid resuscitation -No source discovered as of yet, UA pending at the time of writing this note, negative skin exam, nonacute chest x-ray -Patient given cefepime in the ED, due to likely urological source, Rocephin every 24 hours -CBC, BMP daily -Trend fever curve -Tylenol as needed for fever -Zofran as needed for nausea Parkinson's disease -Continue carbidopa levodopa, donepezil -PT and OT consult placed, may benefit from SNF facility -Supervise ambulation Hypertension -Hold lisinopril for now given low blood pressures and possible sepsis Atrial fibrillation -Hold metoprolol in the setting of low pressures and possible sepsis\ -Continue Eliquis for anticoagulation Hyperlipidemia -Continue atorvastatin Gout -Continue allopurinol Disposition: Admit to [facility] with telemetry Diet: Heart healthy CODE STATUS: DNR/DNI (2) Parkinson disease: (3) Fall: (4) Atrial fibrillation: (5) Mitral regurgitation: (6) Mitral valve prolapse: (7) Dementia: History of Present Illness Chief Complaint: Confusion Primary Care Provider: Ankush Esteves MD Patient is a 76-year-old male with a past medical history of atrial fibrillation, hyperlipidemia, hypertension, Parkinson dementia, and gout presenting to the the emergency room due to a fall and confusion. Due to the patient's advanced dementia, patient is a poor historian and most of the HPI is obtained by his and son. reports that patient was outside for long period time and when she had gone to go see where he was, she had found that he was lying in the grass and is not sure how long he was lying there. This disco very was made around 4 PM. She reports he could have been lying there anywhere from 20 minutes to 1 hour. She reports that his baseline is that he typically does not know where he is, what time of day it is, or what day of the week it is, however, he is aware of self. reports to me that today was overall normal and he was eating and drinking without difficulty. She reports that he has not been complaining of any fevers, chills, chest pain, shortness of breath, nausea, vomiting, or urinary complaints. reports to me that he has been having multiple years of cognitive and physical decline due to his Parkinson disease. and son have noted, however, over the past couple days there has been some worsening in his mobility and has had to use a wheelchair at home. Patient does not speak very much, ever, he was able to report to me that he feels fine and is not having any pain anywhere. Otherwise has no complaints. ED course: Patient arrived confused and with a fever of 39.[address] of the head which was negative. Chest x-ray had showed cardiomegaly without any acute pathologies. EKG showed sinus rhythm. CBC, CMP, troponin, procalcitonin, Lyme titer, lactate, magnesium, and PT/INR all returned within normal limits. Urinalysis was pending at the time of writing this note. Patient received a liter bolus of IV fluid, Tylenol, and a dose of cefepime which resolved the fever. Allergies Allergy/AdvReac Type Severity Reaction Status Date / Time shellfish derived AdvReac Unknown D/T Verified 12/07/21 19:46 GOUT--DOESN'T EAT. Home Medications Medication Instructions Recorded Confirmed Type lisinopril 10 mg tablet 10 mg PO DAILY #90 tabs 02/26/21 12/07/21 Rx carbidopa 25 mg-levodopa 100 mg 1 tab PO TID #270 tabs 03/12/21 12/07/21 Rx tablet donepezil 10 mg tablet 10 mg PO HS 90 days #90 tabs 03/12/21 12/07/21 Rx cholecalciferol (vitamin D3) 50 50 mcg PO BID 90 days #180 caps 08/10/21 12/07/21 Rx mcg (2,000 unit) capsule metoprolol succinate 50 mg 50 mg PO DAILY #90 tabs 08/12/21 12/07/21 Rx tablet,extended release 24 hr apixaban 5 mg tablet (Eliquis) 5 mg PO BID #180 tabs 09/01/21 12/07/21 Rx allopurinol 100 mg tablet 100 mg PO DAILY #90 tabs 11/19/21 12/07/21 Rx (Zyloprim) atorvastatin 20 mg tablet (Lipitor) 20 mg PO QPM #90 tabs 11/29/21 12/07/21 Rx ketoconazole 2 % topical cream 1 applic topical DAILY 12/07/21 12/07/21 History terbinafine HCl 250 mg tablet 250 mg PO QPM 12/07/21 12/07/21 History Past Med/Surg History Medical History (Updated 12/07/21 @ 23:01 by Chase De La Rosa MD) Anemia Atrial fibrillation Atrial flutter Cardiomyopathy Gout Hyperlipemia Hypertension Neurocognitive deficits SDAT (senile dementia of Alzheimer's type) SVT (supraventricular tachycardia) Surgical History H/O cardiac radiofrequency ablation Family History Father Gout Tremor Social History Smoking Status: Unknown if ever smoked Second Hand Exposure: No; Hx Alcohol Use: Yes Alcohol type: beer and hard liquor Hx Substance Use: No Preferred Language: Albanian Communication Ability: Impaired Pecan Cleaner Required: No Beliefs That Will Affect Care: None marital status: Current Living Situation: Spouse Feels Safe at Home: Yes Assistive Devices: Wheelchair Review of Systems Review of Systems: Unobtainable due to cognitive status Physical Exam Constitutional: well developed, well nourished, + frail appearing and cooperative Eyes: + anicteric sclerae ENMT: Ears: + hearing impairment Neck: trachea midline, no thyromegaly Respiratory: normal respiratory effort, lungs clear to auscultation Cardiovascular: Rate/Rhythm: regular rate and regular rhythm Heart Sounds: + murmur Vessels: no JVD Extremities: no edema Gastrointestinal (Abdomen): normal bowel sounds, soft, nontender, no hepatosplenomegaly Musculoskeletal: Head/Neck/Chest: normocephalic and head atraumatic Extremities: strength 5/5 throughout Neurologic: moves all extremities Motor/Sensory: + tremor Psychiatric: Orientation: oriented to person and cooperative; + not oriented to place and + not oriented to time Lymphatic: no cervical or axillary lymphadenopathy Results & Data Results & Data ([facility]) Vital Signs (Past 12 Hours) Vital Signs Temp Pulse Pulse Resp BP BP Pulse Ox 12/07/21 19:00 37.3 C 65 16 97/56 L 96 12/07/21 19:00 96 12/07/21 17:54 18 96 12/07/21 17:36 60 18 130/72 95 12/07/21 17:25 39.1 C H 59 L 20 135/72 97 O2 Del Method 12/07/21 19:00 Room Air 12/07/21 19:00 Room Air 12/07/21 17:54 Room Air 12/07/21 17:36 Room Air 12/07/21 17:25 Room Air Supervising Physician Co-Signing Physician Notes Attending addendum: I have physically seen this patient, have supervised the medical residents activities, and agree with the H&P unless as otherwise noted. Assessment and Plan: Sepsis due to presumptive UTI- Temperature 39.1 on admission Follow urine culture and sensitivity Ceftriaxone 1 g IV daily IV fluid resuscitation Parkinson's- Continue carbidopa levodopa, and donepezil Consult PT/OT, would likely benefit from a SNF facility for rehab Atrial fibrillation/hypertension- Hold metoprolol and lisinopril due to borderline blood pressures continue Eliquis 20 coagulation Hyperlipidemia- Continue atorvastatin Remaining orders and notations as noted
[2021-12-07 22:02] LABS: Influenza A virus by PCR Negative (Neg); Influenza B virus by PCR Negative (Neg); RSV by PCR Negative (Neg)
[2021-12-07 22:29] LABS: SARS CoV2 RNA(COVID-19) InHosp POSITIVE (Negative)
[2021-12-07] MEDS ORDERED: ONDANSETRON INJ 2 MG/ML 2 ML VIAL IV PRN (23:52)
[2021-12-08] MEDS: APIXABAN 5 MG TABLET PO SCH ×3 (02:34→20:21)
[2021-12-08] MEDS: ATORVASTATIN 20 MG TAB PO SCH ×2 (02:34→20:21)
[2021-12-08] MEDS: CHOLECALCIFEROL 1,000 UNITS 25 MCG TAB PO SCH ×3 (02:34→20:22)
[2021-12-08] MEDS: terbinafine HCL 250 MG TAB PO SCH ×2 (02:34→20:22)
[2021-12-08] MEDS: DONEPEZIL HCL 10 MG TAB PO SCH ×2 (02:34→20:22)
[2021-12-08] MEDS: CARBIDOPA/LEVODOPA 25/100MG TAB PO SCH ×4 (02:34→20:22)
[2021-12-08] MEDS: SODIUM CHLORIDE 0.9% 1000ML 1,000 ML IV SCH ×3 (02:41→20:53)
[2021-12-08 06:54] LABS: Hematocrit (blood only) 38.6 % (40.1-51.0); Hemoglobin 13.3 g/dl (14.0-18.0); Mean Corpuscular Hemoglobin 31.6 pg (25.0-34.0); Mean Corpuscular Hgb Conc 34.5 g/dL (32.0-36.0); Mean Corpuscular Volume 91.7 fL (80.0-100.0); Mean Platelet Volume 9.7 fL (9.4-12.4); Platelet Count 156 K/uL (130-400); RDW Coefficient of Variation 12.4 % (11.5-14.5); RDW Standard Deviation 40.9 fL (36.4-46.3); Red Blood Count 4.21 M/uL (4.63-6.08); White Blood Count 6.95 K/ul (4.8-10.8)
[2021-12-08 07:30] LABS: BUN Creatinine Ratio 13.5 (10-20); Calcium 8.7 mg/dl (8.5-10.1); Creatinine Clr Calc Pharmacy 62.4 ml/min; Est GFR (African American) 80.5 ml/min; Est GFR (Non-African American) 69.4 ml/min; Potassium 3.9 mmol/L (3.5-5.1)
[2021-12-08] MEDS: KETOCONAZOLE 2% CR 15 GM TUBE EXT SCH (09:40)
[2021-12-08] MEDS: allopurinoL 100 MG TAB PO SCH (09:40)
--- NOTE | 2021-12-08 09:49 | Hospitalist Progress Note ---
Date of Service December 08, 2021 Assessment & Plan (1) Sepsis: Plan: This is a 76-year-old male with a past medical history of Parkinson's disease with dementia who presented to the emergency department due to a fall, fever, and increased confusion. Patient has been given IV fluids and antibiotics which has resolved his fever. Patient is hemodynamically stable. Sepsis -Patient came in with a fever of 103 F with evidence of acute worsening of dementia -Admit patient to the hospital for antibiotic therapy and fluid resuscitation -COVID testing was positive by serology. No hypoxia. No respiratory distress. Hold steroids and other treatment at this time. Continue supportive care -UA with ketones and no other significant findings. Blood cultures x2 are pending. -Patient given cefepime in the ED, due to likely urological source, continue ceftriaxone every 24 hours empirically for now -Patient was not tolerating oral intake. IV Tylenol as needed for fever -Zofran as needed for nausea COVID 19 As above. Parkinson's disease -Possible Metabolic/Septic encephalopathy -Continue carbidopa levodopa, donepezil -Unsure of baseline -PT and OT consult placed, may benefit from SNF facility -Continue with fall and ambulation precautions -Continue with aspiration precautions Hypertension -Hold lisinopril for now given low blood pressures and possible sepsis -Blood pressure currently stable Atrial fibrillation -Patient appears to be in normal sinus rhythm on examination -Hold metoprolol in the setting of low pressures and possible sepsis\ -Continue Eliquis for anticoagulation Hyperlipidemia -Continue atorvastatin Gout -Continue allopurinol Disposition: Admit to [facility] with telemetry. Anticipate placement on discharge. PT/OT ordered Diet: Heart healthy CODE STATUS: DNR/DNI (2) Parkinson disease: (3) Fall: (4) Atrial fibrillation: (5) Mitral regurgitation: (6) Mitral valve prolapse: (7) Dementia: Admission and Anticipated Discharge Date Admission Date: December 07, 2021 Subjective Attending: Dr. Singh Is a 76-year-old male with a past medical history of atrial fibrillation, hyperlipidemia, hypertension, Parkinson dementia, and gout. He currently gives 1 or 2 word answers. Unable to provide most of history or review of systems. Patient was febrile on admission with a T-max of 39.[address] of the head was negative. Serology was positive for COVID-19 but chest x-ray did not show evidence of multifocal opacities or infiltrates. He received ceftriaxone. Cultures are currently pending. Patient does deny pain. He is able to tell me that his tremor is chronic. He denies any abdominal pain or shortness of breath. He is saturating well on room air. Review of Systems Review of Systems: Unable to give me a complete review of systems. He has evidence of Parkinson's dementia. See HPI above for limited review of systems Physical Exam Physical Exam: GENERAL : No acute distress EYES: No icterus, gaze conjugate NOSE: No evidence of epistaxis MOUTH: No lesions or candidiasis NECK: Supple LUNGS: CTA B/L, no wheezes, rales or rhonchi HEART: Regular, rate controlled ABDOMEN: Soft, NT, ND, BS Present EXTREMITIES: No LE edema, pedal pulses intact and equal bilaterally. Patient does have essential tremor of upper and lower extremities. NEURO: A&OX3 Results & Data Results & Data ([facility]) Vital Signs (Past 12 Hours) Vital Signs Pulse Resp BP Pulse Ox O2 Del Method 12/08/21 06:12 74 16 125/71 95 12/08/21 03:00 78 16 159/70 H 95 12/08/21 00:28 71 16 137/59 L 97 Room Air 12/07/21 22:00 66 16 117/63 95 Room Air Critical Care Results & Data Vital Signs (Past 12 Hours) Vital Signs Pulse Resp BP Pulse Ox O2 Del Method 12/08/21 06:12 74 16 125/71 95 12/08/21 03:00 78 16 159/70 H 95 12/08/21 00:28 71 16 137/59 L 97 Room Air 12/07/21 22:00 66 16 117/63 95 Room Air Lab & Micro Results (Past 24 Hours) RBC 4.07 M/uL (4.63-6.08) L 12/09/21 WBC 6.81 K/ul (4.8-10.8) 12/09/21 Hgb 12.7 g/dl (14.0-18.0) L 12/09/21 Hct 36.1 % (40.1-51.0) L 12/09/21 MCV 88.7 fL (80.0-100.0) 12/09/21 MCH 31.2 pg (25.0-34.0) 12/09/21 MCHC 35.2 g/dL (32.0-36.0) 12/09/21 RDW Standard Deviation 39.8 fL (36.4-46.3) 12/09/21 RDW Coefficient of Variation 12.3 % (11.5-14.5) 12/09/21 Plt Count 143 K/uL (130-400) 12/09/21 MPV 9.4 fL (9.4-12.4) 12/09/21 Na 137 mmol/L (136-145) 12/09/21 K 3.9 mmol/L (3.5-5.1) 12/09/21 Cl 105 mmol/L (98-107) 12/09/21 CO2 26 mmol/L (21-32) 12/09/21 Anion Gap 6 (3-11) 12/09/21 BUN 16 mg/dl (6-23) 12/09/21 Creatinine 0.95 mg/dl (0.6-1.4) 12/09/21 Estimated GFR ( Amer) 89.8 ml/min 12/09/21 Estimated GFR (Non-Af Amer) 77.4 ml/min 12/09/21 BUN/Creatinine Ratio 16.8 (10-20) 12/09/21 Glu 89 mg/dl (70-99(Fasting)) 12/09/21 Ca 8.2 mg/dl (8.5-10.1) L 12/09/21 Calcium Level 8.2 mg/dl (8.5-10.1) L 12/09/21 07:09 Diagnostic Findings (Past 24 Hours) Head CT 12/07/21 17:53 CT SCAN OF THE BRAIN WITHOUT IV CONTRAST CLINICAL HISTORY: Change in mental status. COMPARISON STUDY: CT of the brain dated 11/04/2019. TECHNIQUE: Unenhanced axial CT scan of the brain is performed from the vertex to the skull base. A dose lowering technique was utilized adhering to the principles of ALARA. CT DOSE: 884.08 mGy.cm FINDINGS: Brain parenchyma: There is age-related involutional change noting mild subcortical and periventricular microangiopathic disease. There is no hemorrh age, mass effect, or evidence of acute territorial ischemia by CT criteria. Barragan-white matter differentiation is preserved. No extra-axial fluid collection is seen. Ventricles, sulci, cisterns: Prominent secondary to involutional change. Intracranial vasculature: There is atherosclerotic calcification of the cavernous carotid and vertebral arteries. Calvarium: Unremarkable. Sinuses and mastoids: There is mild mucosal thickening in the left maxillary antrum. The remaining visualized paranasal sinuses are clear. The mastoid air cells are well pneumatized. Soft tissues: Metallic foreign bodies are seen deep to the left zygomatic arch. Orbits: The bony orbits are grossly intact. IMPRESSION: There is no hemorrhage, mass effect, or evidence of acute territorial ischemia by CT criteria. ACT 112: Negative or not required by law. Electronically signed by: Chase Patricia M.D. 12/07/2021 6:40 PM Chest X-Ray 12/07/21 17:54 SINGLE VIEW CHEST CLINICAL HISTORY: Sepsis. FINDINGS: An AP, portable, upright chest radiograph is compared to study dated 11/04/2019. The heart is mildly enlarged noting atherosclerotic calcification of the thoracic aorta. The pulmonary vasculature is noncongested. Chronic interstitial thickening is similar to previous. There is mild bibasilar scarring/atelectasis. The lungs and pleural spaces are otherwise clear. A skin fold projects over the left apex. No pneumothorax is seen. The skeletal structures are osteopenic. The bony thorax is grossly intact. IMPRESSION: Cardiomegaly with no acute cardiopulmonary abnormality identified. ACT 112: Negative or not required by law. Electronically signed by: Chase Patricia M.D. 12/07/2021 8:01 PM I & O Totals 24 Hours 12/07/21 12/08/21 12/09/21 06:59 06:59 06:59 Intake Total 1999 Output Total 0 / 0 Balance 1999 / 1999 Cumulative 12/07/21 17:24 thru 12/07/21 22:34 Intake Total 1999 Output Total 0 Balance 1999 RT Ventilator Mngmt (Last Documented) Ventilator Ordered Settings Respiratory Rate 16 12/08/21 06:12 Ventilator - PT Measurements Respiratory Rate 16 PG Care Time/CCT Total # of Minutes Spent Total Time Spent with Patient: Total time spent is greater than 50% in coordination of care (as documented) at patient's floor/unit and/or counseling patient: Coding Level of Care Code 43723 Subseq Hosp Care Lvl 2 Diagnoses Sepsis A41.9 Parkinson disease G20 Fall W19.XXXA Atrial fibrillation I48.91 Mitral regurgitation I34.0 Mitral valve prolapse I34.1 Dementia F03.90
[2021-12-08] MEDS: cefTRIAXone SODIUM 1,000 MG in DEXTROSE 5% 50 ML IV SCH (10:14)
--- NOTE | 2021-12-08 10:17 | Electrocardiogram Report ---
Test Reason : Blood Pressure : / mmHG Vent. Rate : 061 BPM Atrial Rate : 061 BPM P-R Int : 186 ms QRS Dur : 084 ms QT Int : 418 ms P-R-T Axes : 050 059 056 degrees QTc Int : 420 ms Normal sinus rhythm Normal ECG When compared with ECG of 06-NOV-2019 07:58, No significant change was found Confirmed by Ankush Tobin ([id number]) on 12/08/2021 10:17:19 AM Referred By: REFERRED SELF Confirmed By:Dane Tobin
[2021-12-08] MEDS ORDERED: ACETAMINOPHEN 1000 MG/100 ML IV IV ONE (11:00)
[2021-12-08] MEDS ORDERED: ACETAMINOPHEN 1000 MG/100 ML IV IV PRN (11:10)
[2021-12-09] MEDS: ACETAMINOPHEN 325 MG TAB PO PRN ×2 (00:10→16:29)
--- NOTE | 2021-12-09 03:51 | Billing Data ---
Date of Service December 09, 2021 Coding Level of Care Code INT OBSERVATION CARE 70M LVL 3
[2021-12-09] MEDS: CHOLECALCIFEROL 1,000 UNITS 25 MCG TAB PO SCH ×2 (07:33→19:55)
[2021-12-09] MEDS: CARBIDOPA/LEVODOPA 25/100MG TAB PO SCH ×3 (07:33→19:56)
[2021-12-09] MEDS: allopurinoL 100 MG TAB PO SCH (07:33)
[2021-12-09] MEDS: APIXABAN 5 MG TABLET PO SCH ×2 (07:34→19:55)
[2021-12-09] MEDS: cefTRIAXone SODIUM 1,000 MG in DEXTROSE 5% 50 ML IV SCH (07:38)
[2021-12-09] MEDS: KETOCONAZOLE 2% CR 15 GM TUBE EXT SCH (07:40)
[2021-12-09 07:53] LABS: BUN Creatinine Ratio 16.8 (10-20); Calcium 8.2 mg/dl (8.5-10.1); Creatinine Clr Calc Pharmacy 67.4 ml/min; Est GFR (African American) 89.8 ml/min; Est GFR (Non-African American) 77.4 ml/min; Potassium 3.9 mmol/L (3.5-5.1)
[2021-12-09 07:56] LABS: Hematocrit (blood only) 36.1 % (40.1-51.0); Hemoglobin 12.7 g/dl (14.0-18.0); Mean Corpuscular Hemoglobin 31.2 pg (25.0-34.0); Mean Corpuscular Hgb Conc 35.2 g/dL (32.0-36.0); Mean Corpuscular Volume 88.7 fL (80.0-100.0); Mean Platelet Volume 9.4 fL (9.4-12.4); Platelet Count 143 K/uL (130-400); RDW Coefficient of Variation 12.3 % (11.5-14.5); RDW Standard Deviation 39.8 fL (36.4-46.3); Red Blood Count 4.07 M/uL (4.63-6.08); White Blood Count 6.81 K/ul (4.8-10.8)
[2021-12-09] MEDS: SODIUM CHLORIDE 0.9% 1000ML 1,000 ML IV SCH (09:25)
[2021-12-09] MEDS: MAGNESIUM SULFATE / D5W 1 GM/100 ML BAG IV SCH ×2 (13:50→16:19)
--- NOTE | 2021-12-09 17:35 | XCELERA ---
[id number]
--- NOTE | 2021-12-09 17:50 | Hospitalist Progress Note ---
Date of Service December 09, 2021 Assessment & Plan (1) Sepsis: Plan: This is a 76-year-old male with a past medical history of Parkinson's disease with dementia who presented to the emergency department due to a fall, fever, and increased confusion. Patient has been given IV fluids and antibiotics which has resolved his fever. Patient is hemodynamically stable. Sepsis -Patient came in with a fever of 103 F with evidence of acute worsening of dementia. Initially the patient's fever curve is trending down. He continues with fever again today. -Blood cultures from 12/07/2021 no growth to date. We will repeat panculture -COVID testing was positive by serology. No hypoxia. No respiratory distress. Hold steroids and other treatment at this time. Continue supportive care -UA with ketones and no other significant findings. Blood cultures x2 no growth to date -Patient given cefepime in the ED, due to likely urological source, continue ceftriaxone every 24 hours empirically for now -Patient was not tolerating oral intake. IV Tylenol as needed for fever -Zofran as needed for nausea Ventricular tachycardia -14 beat run of V. tach earlier today -Magnesium was 1.7. 2 g of magnesium sulfate administered IV. -Echocardiogram completed and is pending. Difficult to obtain secondary to tremors -Follow telemetry. Parkinson's disease -Continue carbidopa levodopa, donepezil -Unsure of baseline but suspect severe dementia -PT and OT consult placed, may benefit from SNF facility -Continue with fall and ambulation precautions -Continue with aspiration precautions Hypertension -Hold lisinopril due to SIRS -Blood pressure currently stable Atrial fibrillation -Patient appears to be in normal sinus rhythm on examination -Hold metoprolol in the setting of low pressures and possible sepsis -Continue Eliquis for anticoagulation Hyperlipidemia -Continue atorvastatin Gout -Continue allopurinol Disposition: Admit to [facility] with telemetry. Anticipate placement on discharge. PT/OT ordered Diet: Heart healthy CODE STATUS: DNR/DNI (2) Parkinson disease: (3) Fall: (4) Atrial fibrillation: (5) Mitral regurgitation: (6) Mitral valve prolapse: (7) Dementia: Admission and Anticipated Discharge Date Admission Date: December 07, 2021 Supervising Physician Co-Signing Physician Notes Attending Attestation - Chart reviewed, care plan d/w LEYLA Watt. I agree w/ the andrews components of his documentation except - patient IS hypoxic, has O2 requirement. Given the COVID illness will repeat cxr in am and if pneumonia is present consider steroids, Remdesivir, etc. Del Mcgowan MD Subjective Attending: Dr. Mcgowan Patient seems to be more alert but still unable to provide ROS or conversation secondary to Parkinson's dementia. He appears comfortable and in no distress. Fever curve is trending downward. Patient did have a 14 beat run of V. tach earlier today. Magnesium was found to be 1.7. He was treated with 2 g of magnesium sulfate IV. Echocardiogram was ordered. Previous echocardiogram in 2019. Patient follows with Dr. Tyrone Tobin with [facility]. Review of Systems Review of Systems: Unable to provide review of systems secondary to dementia Physical Exam Physical Exam: GENERAL : No acute distress EYES: No icterus, gaze conjugate NOSE: No evidence of epistaxis MOUTH: No lesions or candidiasis NECK: Supple LUNGS: CTA B/L, no wheezes, rales or rhonchi HEART: Regular, rate controlled ABDOMEN: Soft, NT, ND, BS Present EXTREMITIES: No LE edema, pedal pulses intact NEURO: Awake and alert. Can continues with chronic tremors. Results & Data Results & Data ([facility]) Vital Signs (Past 12 Hours) Vital Signs Temp Pulse Pulse Resp BP Pulse Ox O2 Del Method 12/09/21 17:36 38.1 C H 12/09/21 16:10 38.6 C H 91 H 20 116/61 91 Nasal Cannula 12/09/21 11:00 37.7 C H 85 18 155/79 H 95 Nasal Cannula 12/09/21 09:07 Nasal Cannula 12/09/21 08:09 36.8 C 73 18 134/74 93 Nasal Cannula 12/09/21 07:21 81 O2 Flow Rate 12/09/21 17:36 12/09/21 16:10 3 12/09/21 11:00 3 12/09/21 09:07 3 12/09/21 08:09 3 12/09/21 07:21 Critical Care Results & Data Vital Signs (Past 12 Hours) Vital Signs Temp Pulse Pulse Resp BP Pulse Ox O2 Del Method 12/09/21 17:36 38.1 C H 12/09/21 16:10 38.6 C H 91 H 20 116/61 91 Nasal Cannula 12/09/21 11:00 37.7 C H 85 18 155/79 H 95 Nasal Cannula 12/09/21 09:07 Nasal Cannula 12/09/21 08:09 36.8 C 73 18 134/74 93 Nasal Cannula 12/09/21 07:21 81 O2 Flow Rate 12/09/21 17:36 12/09/21 16:10 3 12/09/21 11:00 3 12/09/21 09:07 3 12/09/21 08:09 3 12/09/21 07:21 Lab & Micro Results (Past 24 Hours) RBC 3.89 M/uL (4.63-6.08) L 12/10/21 WBC 4.29 K/ul (4.8-10.8) L 12/10/21 Hgb 12.1 g/dl (14.0-18.0) L 12/10/21 Hct 34.4 % (40.1-51.0) L 12/10/21 MCV 88.4 fL (80.0-100.0) 12/10/21 MCH 31.1 pg (25.0-34.0) 12/10/21 MCHC 35.2 g/dL (32.0-36.0) 12/10/21 RDW Standard Deviation 39.1 fL (36.4-46.3) 12/10/21 RDW Coefficient of Variation 12.2 % (11.5-14.5) 12/10/21 Plt Count 132 K/uL (130-400) 12/10/21 MPV 9.8 fL (9.4-12.4) 12/10/21 Na 136 mmol/L (136-145) 12/10/21 K 3.7 mmol/L (3.5-5.1) 12/10/21 Cl 105 mmol/L (98-107) 12/10/21 CO2 26 mmol/L (21-32) 12/10/21 Anion Gap 5 (3-11) 12/10/21 BUN 14 mg/dl (6-23) 12/10/21 Creatinine 0.80 mg/dl (0.6-1.4) 12/10/21 Estimated GFR ( Amer) 100.6 ml/min 12/10/21 Estimated GFR (Non-Af Amer) 86.8 ml/min 12/10/21 BUN/Creatinine Ratio 17.5 (10-20) 12/10/21 Glu 94 mg/dl (70-99(Fasting)) 12/10/21 Ca 7.7 mg/dl (8.5-10.1) L 12/10/21 Calcium Level 7.7 mg/dl (8.5-10.1) L 12/10/21 07:25 Microbiology 12/07/21 17:56 Aerobic Blood Culture - Preliminary Blood No growth in Aerobic bottle after 24 hours. Anaerobic Blood Culture - Preliminary No growth in Anaerobic bottle after 24 hours. 12/07/21 17:56 Aerobic Blood Culture - Preliminary Blood No growth in Aerobic bottle after 24 hours. Anaerobic Blood Culture - Preliminary No growth in Anaerobic bottle after 24 hours. I & O Totals 24 Hours 12/08/21 12/09/21 12/10/21 06:59 06:59 06:59 Intake Total 1999 2180 / 2180 1340 / 1340 Output Total 0 / 0 1400 / 1400 325 / 325 Balance 1999 780 / 780 1015 / 1015 Cumulative 12/07/21 17:24 thru 12/09/21 16:19 Intake Total 5520 Output Total 1725 Balance 3795 RT Ventilator Mngmt (Last Documented) Ventilator Ordered Settings Respiratory Rate 20 12/09/21 16:10 Ventilator - PT Measurements Respiratory Rate 20 PG Care Time/CCT Total # of Minutes Spent Total Time Spent with Patient: Total time spent is greater than 50% in coordination of care (as documented) at patient's floor/unit and/or counseling patient: Coding Level of Care Code 40735 Subseq Hosp Care Lvl 2 Diagnoses Sepsis A41.9 Parkinson disease G20 Fall W19.XXXA Atrial fibrillation I48.91 Mitral regurgitation I34.0 Mitral valve prolapse I34.1 Dementia F03.90
[2021-12-09] MEDS: terbinafine HCL 250 MG TAB PO SCH (19:55)
[2021-12-09] MEDS: DONEPEZIL HCL 10 MG TAB PO SCH (19:55)
[2021-12-09] MEDS: ATORVASTATIN 20 MG TAB PO SCH (19:56)
[2021-12-10] MEDS: SODIUM CHLORIDE 0.9% 1000ML 1,000 ML IV SCH ×2 (01:23→10:37)
[2021-12-10 03:54] LABS: Appearance Urine Clear (Clear); Bacteria Urine Automated Negative (Negative); Bilirubin Urine Negative (Negative); Blood Urine 2+ (Negative); Color Urine Yellow; Glucose Urine UA Negative (Negative); Ketones Urine Negative (Negative); Leukocyte Esterase Urine Negative (Negative); Nitrite Urine Negative (Negative); Protein Urine 1+ (Negative); Specific Gravity Urine 1.018 (1.000-1.030); Urobilinogen Urine Negative (Negative)
[2021-12-10] MEDS: KETOCONAZOLE 2% CR 15 GM TUBE EXT SCH (08:03)
[2021-12-10] MEDS: CARBIDOPA/LEVODOPA 25/100MG TAB PO SCH ×3 (08:03→21:22)
[2021-12-10] MEDS: CHOLECALCIFEROL 1,000 UNITS 25 MCG TAB PO SCH ×2 (08:03→21:23)
[2021-12-10] MEDS: APIXABAN 5 MG TABLET PO SCH ×2 (08:03→21:22)
[2021-12-10] MEDS: allopurinoL 100 MG TAB PO SCH (08:03)
[2021-12-10] MEDS: ACETAMINOPHEN 325 MG TAB PO PRN (08:05)
[2021-12-10 08:14] LABS: Hematocrit (blood only) 34.4 % (40.1-51.0); Hemoglobin 12.1 g/dl (14.0-18.0); Mean Corpuscular Hemoglobin 31.1 pg (25.0-34.0); Mean Corpuscular Hgb Conc 35.2 g/dL (32.0-36.0); Mean Corpuscular Volume 88.4 fL (80.0-100.0); Mean Platelet Volume 9.8 fL (9.4-12.4); Platelet Count 132 K/uL (130-400); RDW Coefficient of Variation 12.2 % (11.5-14.5); RDW Standard Deviation 39.1 fL (36.4-46.3); Red Blood Count 3.89 M/uL (4.63-6.08); White Blood Count 4.29 K/ul (4.8-10.8)
[2021-12-10 08:33] LABS: BUN Creatinine Ratio 17.5 (10-20); Calcium 7.7 mg/dl (8.5-10.1); Creatinine Clr Calc Pharmacy 81.1 ml/min; Est GFR (African American) 100.6 ml/min; Est GFR (Non-African American) 86.8 ml/min; Potassium 3.7 mmol/L (3.5-5.1)
[2021-12-10] MEDS ORDERED: REMDESIVIR 200 MG in SODIUM CHLORIDE 0.9% 210 ML IV STA (09:22)
[2021-12-10] MEDS ORDERED: DOXYCYCLINE HYCLATE 100 MG CAP PO STA (09:22)
--- NOTE | 2021-12-10 10:35 | XRay Report ---
SINGLE VIEW CHEST CLINICAL HISTORY: Fever of unknown origin. FINDINGS: An AP, portable, upright chest radiograph is compared to study dated 12/07/2021. The heart is mildly enlarged noting atherosclerotic calcification of the thoracic aorta. The pulmonary vasculatur e is noncongested. Chronic interstitial thickening is similar to previous. There is mild bibasilar sc arring/atelectasis. There is bilateral airspace consolidation throughout the mid to lower lungs. No l arge pleural effusion or pneumothorax is seen. The skeletal structures are osteopenic. The bony thora x is grossly intact. IMPRESSION: 1. Dense bilateral airspace consolidation in the mid to lower lungs is new from previous. The appeara nce is typical for pneumonia/aspiration pneumonitis. Clinical correlation be required and radiographi c follow-up to resolution is recommended. 2. Cardiomegaly without radiographic evidence of congestive failure. ACT 112: Negative or not required by law. Electronically signed by: Chase Patricia M.D. 12/10/2021 10:33 AM
[2021-12-10] MEDS: cefTRIAXone SODIUM 2,000 MG in DEXTROSE 5% 50 ML IV SCH (10:36)
[2021-12-10] MEDS: dexAMETHasone 6 MG in SYRINGE 0 ML IV SCH (10:36)
--- NOTE | 2021-12-10 15:29 | Fluoroscopy Report ---
VIDEO SWALLOW STUDY CLINICAL HISTORY: Aspiration. COMPARISON STUDY: No priors. FINDINGS: Fluoroscopic guidance was provided to the department of speech pathology in performing a vi irina swallow study. The patient consumed barium-impregnated pudding, cracker with paste, thickened liq uids, and thin barium while the swallowing mechanism was observed in real-time. No penetration or asp iration was seen with any of the sampled textures. IMPRESSION: No penetration or aspiration was seen with any of the sampled textures. See dedicated spe ech pathology report for detailed findings and recommendations. Dictated: 12/10/2021 2:40 PM Transcribed: 12/10/2021 3:09 PM Mony [id number] [facility] Electronically signed by: Chase Patricia M.D. 12/10/2021 3:28 PM
--- NOTE | 2021-12-10 20:10 | Hospitalist Progress Note ---
Date of Service December 10, 2021 Assessment & Plan (1) Acute respiratory failure with hypoxia: Plan: 2nd to #2. I cannot rule out concomitant, superimposed bacterial pneumonia (elevated procal, etc). Cont supportive care. Cont NC O2. Add flutter valve. (2) Pneumonia due to COVID-19 virus: Plan: 4 L NC O2 requirement. CXR today with b/l pneumonia. Still <5 days into the illness - add Remdesivir x 5 days, first dose now. Add dexamethasone 6mg IV daily. Due to elevated procal - resume rocephin 2gm IV daily. Add doxy for atypical coverage. Cont supportive care, pulm toilet w/ flutter valve, etc. Video swallow results noted and care d/w speech therapy. No aspiration noted on study. Defer on aspiration coverage at this time. (3) Acute metabolic encephalopathy: Plan: 2nd to #2. Supportive care. Avoid benzos & sedatives. (4) Pancytopenia: Plan: 2nd to COVID infection. Repeat cbc am for stability. (5) Dementia: Plan: advanced 2nd to PD (6) Parkinson disease: Plan: cont sinemet will need PT, OT (7) Atrial fibrillation: Plan: h/o a.fib/flutter resume metoprolol in am cont eliquis BID (8) Hypertension: Plan: resume metoprolol hold CRIS (9) Hyperlipidemia: Plan: Cont lipitor While on Remdesivir check ast/alt daily Hold terbinafine (is on such for onychomycosis) in light of multiple meds that can cause liver inflammation (10) DVT prophylaxis: Plan: Eliquis 5mg BID Plan extensively updated by phone this evening Admission and Anticipated Discharge Date Admission Date: December 07, 2021 Subjective tele with NSR patient lying in bed comfortably during the visit due to his dementia he could offer no meaningful history or ROS when I asked him how old he was he said "well, um, I am maybe 85" he was coughing throughout the visit and looked tired Review of Systems Review of Systems: Unobtainable due to cognitive status Physical Exam Physical Exam: gen - looks unwell, pleasantly confused, coughing mouth - MMM neck - no JVD heart - RRR, s1 s2, no murmur lungs - decreased BS bases, occasional rales bases, no wheezes; no increased work of breathing abd - soft NT ND BS+ ext - no edema, pulses 2+ b/l psych - oriented to person only neuro - masked facies Results & Data Results & Data ([facility]) Vital Signs (Past 12 Hours) Vital Signs Temp Pulse Pulse Resp BP Pulse Ox O2 Del Method 12/10/21 16:56 37.5 C 76 18 132/76 95 Nasal Cannula 12/10/21 16:52 72 12/10/21 12:27 37.0 C 73 18 120/66 92 Nasal Cannula 12/10/21 11:14 Nasal Cannula 12/10/21 08:58 37 C O2 Flow Rate 12/10/21 16:56 4 12/10/21 16:52 12/10/21 12:27 4 12/10/21 11:14 4 12/10/21 08:58 Laboratory Results Laboratory Results - last 24 hr 12/10/21 12/10/21 12/10/21 07:25 07:25 07:25 WBC 4.29 L RBC 3.89 L Hgb 12.1 L Hct 34.4 L MCV 88.4 MCH 31.1 MCHC 35.2 RDW Std Deviation 39.1 RDW Coeff of [place] 12.2 Plt Count 132 MPV 9.8 Sodium 136 Potassium 3.7 Chloride 105 Carbon Dioxide 26 Anion Gap 5 BUN 14 Creatinine 0.80 Est Cr Clr Drug Dosing 81.1 Est GFR ( Amer) 100.6 Est GFR (Non-Af Amer) 86.8 BUN/Creatinine Ratio 17.5 Glucose 94 Calcium 7.7 L Procalcitonin 1.65 H Diagnostic Findings Chest X-Ray 12/10/21 07:00 SINGLE VIEW CHEST CLINICAL HISTORY: Fever of unknown origin. FINDINGS: An AP, portable, upright chest radiograph is compared to study dated 12/07/2021. The heart is mildly enlarged noting atherosclerotic calcification of the thoracic aorta. The pulmonary vasculature is noncongested. Chronic interstitial thickening is similar to previous. There is mild bibasilar scarring/atelectasis. There is bilateral airspace consolidation throughout the mid to lower lungs. No large pleural effusion or pneumothorax is seen. The skeletal structures are osteopenic. The bony thorax is grossly intact. IMPRESSION: 1. Dense bilateral airspace consolidation in the mid to lower lungs is new from previous. The appearance is typical for pneumonia/aspiration pneumonitis. Clinical correlation be required and radiographic follow-up to resolution is recommended. 2. Cardiomegaly without radiographic evidence of congestive failure. ACT 112: Negative or not required by law. Electronically signed by: Chase Patricia M.D. 12/10/2021 10:33 AM Videofluoroscopic Swallow 12/10/21 14:00 VIDEO SWALLOW STUDY CLINICAL HISTORY: Aspiration. COMPARISON STUDY: No priors. FINDINGS: Fluoroscopic guidance was provided to the department of speech pathology in performing a video swallow study. The patient consumed barium- impregnated pudding, cracker with paste, thickened liquids, and thin barium while the swallowing mechanism was observed in real-time. No penetration or aspiration was seen with any of the sampled textures. IMPRESSION: No penetration or aspiration was seen with any of the sampled textures. See dedicated speech pathology report for detailed findings and recommendations. Dictated: 12/10/2021 2:40 PM Transcribed: 12/10/2021 3:09 PM Mony [id number] [facility] Electronically signed by: Chase Patricia M.D. 12/10/2021 3:28 PM PG Care Time/CCT Total # of Minutes Spent Total Time Spent with Patient: Total time spent is greater than 50% in coordination of care (as documented) at patient's floor/unit and/or counseling patient: Coding Level of Care Code 26926 Subseq Hosp Care Lvl 3 Diagnoses Acute respiratory failure with hypoxia J96.01 Pneumonia due to COVID-19 virus U07.1; J12.82 Acute metabolic encephalopathy G93.41 Pancytopenia D61.818 Dementia G20; F02.81 Dementia behavioral disturbance: with behavioral disturbance Dementia type: Parkinson's disease Parkinson disease G20 Atrial fibrillation I48.91 Hypertension I10 Hyperlipidemia E78.5 DVT prophylaxis Z29.9 (1) Dementia Dementia behavioral disturbance: with behavioral disturbance Dementia type: Parkinson's disease Qualified Code(s): G20 - Parkinson's disease; F02.81 - Dementia in other diseases classified elsewhere with behavioral disturbance
[2021-12-10] MEDS: ATORVASTATIN 20 MG TAB PO SCH (21:23)
[2021-12-10] MEDS: DONEPEZIL HCL 10 MG TAB PO SCH (21:24)
[2021-12-10] MEDS: DOXYCYCLINE HYCLATE 100 MG CAP PO SCH (21:24)
[2021-12-11 07:38] LABS: Basophils # (auto) 0.01 K/uL (0-0.2); Basophils % (auto) 0.1 %; Hematocrit (blood only) 31.3 % (40.1-51.0); Hemoglobin 11.2 g/dl (14.0-18.0); Immature Granulocytes # (auto) 0.03 K/uL (0.00-0.02); Immature Granulocytes % (auto) 0.4 %; Lymphocytes # (auto) 0.57 K/uL (1.2-3.4); Lymphocytes % (auto) 8.4 %; Mean Corpuscular Hemoglobin 32.1 pg (25.0-34.0); Mean Corpuscular Hgb Conc 35.8 g/dL (32.0-36.0); Mean Corpuscular Volume 89.7 fL (80.0-100.0); Mean Platelet Volume 9.4 fL (9.4-12.4); Monocytes # (auto) 0.55 K/uL (0.24-0.82); Monocytes % (auto) 8.1 %; Neutrophils # (auto) 5.59 K/uL (1.4-6.5); Platelet Count 143 K/uL (130-400); RDW Coefficient of Variation 12.4 % (11.5-14.5); RDW Standard Deviation 39.9 fL (36.4-46.3); Red Blood Count 3.49 M/uL (4.63-6.08); White Blood Count 6.75 K/ul (4.8-10.8)
[2021-12-11 08:09] LABS: BUN Creatinine Ratio 22.2 (10-20); Calcium 8.1 mg/dl (8.5-10.1); Creatinine Clr Calc Pharmacy 77.8 ml/min; Est GFR (African American) 100.1 ml/min; Est GFR (Non-African American) 86.3 ml/min; Potassium 3.8 mmol/L (3.5-5.1)
[2021-12-11] MEDS: KETOCONAZOLE 2% CR 15 GM TUBE EXT SCH (08:17)
[2021-12-11] MEDS: CHOLECALCIFEROL 1,000 UNITS 25 MCG TAB PO SCH ×2 (08:18→20:18)
[2021-12-11] MEDS: allopurinoL 100 MG TAB PO SCH (08:18)
[2021-12-11] MEDS: DOXYCYCLINE HYCLATE 100 MG CAP PO SCH ×2 (08:18→20:20)
[2021-12-11] MEDS: APIXABAN 5 MG TABLET PO SCH ×2 (08:18→20:22)
[2021-12-11] MEDS: CARBIDOPA/LEVODOPA 25/100MG TAB PO SCH ×3 (08:18→20:19)
[2021-12-11] MEDS: dexAMETHasone 6 MG in SYRINGE 0 ML IV SCH (08:19)
[2021-12-11] MEDS: cefTRIAXone SODIUM 2,000 MG in DEXTROSE 5% 50 ML IV SCH (08:19)
[2021-12-11] MEDS: METOPROLOL TARTRATE 25 MG TAB PO SCH ×2 (09:07→20:47)
[2021-12-11] MEDS: REMDESIVIR 100 MG in SODIUM CHLORIDE 0.9% 230 ML IV SCH (12:02)
[2021-12-11] MEDS ORDERED: dilTIAZem HCl 5 MG/ML 5 ML VIAL IV STA (18:42)
[2021-12-11] MEDS ORDERED: dilTIAZem HCl 5 MG/ML 5 ML VIAL IV ONE (18:48)
[2021-12-11] MEDS ORDERED: STAT IV Infusion **Titration per Protocol STA (19:04)
[2021-12-11] MEDS ORDERED: MAGNESIUM SULFATE / D5W 1 GM/100 ML BAG IV ONE (19:05)
[2021-12-11] MEDS ORDERED: POTASSIUM CHLORIDE CRTAB 20 MEQ TABCR PO STA (19:05)
[2021-12-11] MEDS ORDERED: SODIUM CHLORIDE 0.9% 1000ML 500 ML IV ONE (19:08)
[2021-12-11] MEDS ORDERED: dilTIAZem HCL 125 MG in DEXTROSE 5% 100 ML IV SCH (19:15)
[2021-12-11] MEDS ORDERED: SODIUM CHLORIDE 0.9% 1000ML 1,000 ML IV SCH (19:15)
--- NOTE | 2021-12-11 19:22 | Hospitalist Progress Note ---
Date of Service December 11, 2021 Assessment & Plan (1) Atrial fibrillation with RVR: Plan: Prior h/o a.fib/flutter in 2018, 2019, etc requiring hospitalization. Was in NSR since the time of this admission, then developed rapid a.fib this evening. Rate control achieved quickly with bolus of 10mg of IV cardizem. Had adequate hemodynamics during the event today. Suspect catecholamine surge in response to physical stress of his COVID illness led to his rapid a.fib. Doubt ischemia - no symptoms of such today. However he does have ST depressions laterally on the EKG. This may be rate-related. Plan - * 1gm mag sulfate IV x 1 now * KCL 20meq po x 1 now * transfer to PCU, place on cardizem infusion, HR goal <100 * continue metoprolol 25mg BID * adjust his AV todd agents as needed * serial troponins * TSH with FT4 in am * repeat BMP/mag in am * echo from earlier this week noted (normal EF, etc) * if rate control proves difficult could consider a rhythm control strategy with amiodarone * he is CHRONICALLY anticoagulated with Eliquis 5mg BID * NS bolus of 500cc now, followed by additional 500cc over 5 hours, then saline lock (2) Acute respiratory failure with hypoxia: Plan: 2nd to #3. I cannot rule out concomitant, superimposed bacterial pneumonia (elevated procal, etc). Cont supportive care. Cont NC O2. (3) Pneumonia due to COVID-19 virus: Plan: 4 L NC O2 requirement. CXR yesterday with b/l pneumonia. Day 2 of 5 of Remdesivir x 5 days. Day #2 of dexamethasone 6mg IV daily. Due to elevated procal - continue rocephin 2gm IV daily and doxy BID for atypical coverage. Cont supportive care, pulm toilet w/ flutter valve, etc. Video swallow results noted and care d/w speech therapy. No aspiration noted on study. Defer on aspiration coverage at this time. Repeat AST/ALT in am given the Remdesivir usage. Check CPK given the mildly high AST. (4) Acute metabolic encephalopathy: Plan: 2nd to #3 in the setting of dementia. Supportive care. Avoid benzos & sedatives. Haldol 0.5mg po x 1 tonight at HS due to . (5) Pancytopenia: Plan: 2nd to COVID infection. Repeat cbc stable today with improving WBC and platelet count. (6) Dementia: Plan: advanced 2nd to PD (7) Parkinson disease: Plan: cont sinemet will need PT, OT tremors are worse -- there is literature showing that neurological conditions such as PD often have worse symptoms during COVID illness consider neuro consult if needed (8) Atrial fibrillation: Plan: cont eliquis cont BB adding CCB - see #1 above (9) Hypertension: Plan: Cont metoprolol hold CRIS controlled (10) Hyperlipidemia: Plan: Cont lipitor While on Remdesivir check ast/alt daily Hold terbinafine (is on such for onychomycosis) in light of multiple meds that can cause liver inflammation (11) DVT prophylaxis: Plan: Eliquis 5mg BID Plan extensively updated by phone this evening; she is aware of rapid a.fib and need for transfer to higher level of care (PCU) total time today over 2 visits about 80 minutes Admission and Anticipated Discharge Date Admission Date: December 07, 2021 Subjective 2 visits to pt's room today first was during AM rounds staff report he was restless through the night, agitated/confused, pulling at his IV, etc tele overnight was wnl during AM rounds he was unable to offer any meaningful history or ROS due to his severe dementia 2nd visit was late in the day about 1845 patient developed a narrow-complex tachycardia with HR 170-180 code purple was called upon arrival he was awake/alert again unable to give much history; when asked pointed questions (are you short of breath? are you having chest pain? -- he was unable to answer these) SBP was >100 telestrip - my interpretation - showed rapid a.fib I gave order for cardizem 10mg IV x 1 within 2 minutes of administration of such his HR fell <100 tele confirmed it was a.fib 12-lead EKG obtained - a.fib, lateral ST changes (my reading) shortly after this evening event I placed orders for transfer to PCU, and then called his to update her on the events of note - patient has past h/o a.fib/flutter with multiple hospitalizations for such and cardioversion in the past as well Review of Systems Review of Systems: Unobtainable due to cognitive status Physical Exam Physical Exam: gen - NAD during both visits mouth - MMM neck - no JVD heart - RRR, s1 s2, no murmur (first visit - AM rounds); tachycardic, s1 s2, irregularly irregular (2nd visit in the evening during code purple) lungs - decreased BS bases, occasional rales bases, no wheezes; no increased work of breathing abd - soft NT ND BS+ ext - no edema, pulses 2+ b/l psych - oriented to person only neuro - masked facies; tremors of arms Results & Data Results & Data ([facility]) Vital Signs (Past 12 Hours) Vital Signs Temp Pulse Pulse Resp BP Pulse Ox O2 Del Method 12/11/21 15:59 36.8 C 62 18 118/73 95 Nasal Cannula 12/11/21 15:09 60 12/11/21 11:39 36.5 C 65 18 148/80 H 97 Nasal Cannula 12/11/21 09:55 36.9 C 89 20 150/66 H 93 Nasal Cannula 12/11/21 08:58 Nasal Cannula O2 Flow Rate 12/11/21 15:59 2 12/11/21 15:09 12/11/21 11:39 4 12/11/21 09:55 4 12/11/21 08:58 4 Laboratory Results Laboratory Results - last 24 hr 12/11/21 12/11/21 12/11/21 07:29 07:29 07:29 WBC 6.75 RBC 3.49 L Hgb 11.2 L Hct 31.3 L MCV 89.7 MCH 32.1 MCHC 35.8 RDW Std Deviation 39.9 RDW Coeff of [place] 12.4 Plt Count 143 MPV 9.4 Immature Gran % (Auto) 0.4 Neut % (Auto) 83.0 Lymph % (Auto) 8.4 [place] % (Auto) 8.1 Eos % (Auto) 0.0 Baso % (Auto) 0.1 Neut # (Auto) 5.59 Lymph # (Auto) 0.57 L [place] # (Auto) 0.55 Eos # (Auto) 0.00 Baso # (Auto) 0.01 Immature Gran # (Auto) 0.03 H Sodium 139 Potassium 3.8 Chloride 105 Carbon Dioxide 27 Anion Gap 7 BUN 18 Creatinine 0.81 Est Cr Clr Drug Dosing 77.8 Est GFR ( Amer) 100.1 Est GFR (Non-Af Amer) 86.3 BUN/Creatinine Ratio 22.2 H Glucose 107 H POC Glucose Calcium 8.1 L AST 54 H ALT 24 Ammonia 20.0 Troponin I High Sens 12/11/21 12/11/21 18:46 20:17 WBC RBC Hgb Hct MCV MCH MCHC RDW Std Deviation RDW Coeff of [place] Plt Count MPV Immature Gran % (Auto) Neut % (Auto) Lymph % (Auto) [place] % (Auto) Eos % (Auto) Baso % (Auto) Neut # (Auto) Lymph # (Auto) [place] # (Auto) Eos # (Auto) Baso # (Auto) Immature Gran # (Auto) Sodium Potassium Chloride Carbon Dioxide Anion Gap BUN Creatinine Est Cr Clr Drug Dosing Est GFR ( Amer) Est GFR (Non-Af Amer) BUN/Creatinine Ratio Glucose POC Glucose 140 H Calcium AST ALT Ammonia Troponin I High Sens 28.5 H D Diagnostic Findings EKG - my reading - a.fib, rate of about 100; ST segment depression V4-V6; ST flattening III, AVF PG Care Time/CCT Total # of Minutes Spent Total Time Spent with Patient: Total time spent is greater than 50% in coordination of care (as documented) at patient's floor/unit and/or counseling patient: Prolonged Care Time Prolonged Care Time: Yes Total Prolonged Care Time: 80 Coding Level of Care Code 98557 Subseq Hosp Care Lvl 3 (25 - SIGNIFICANT, SEPARATELY IDENTIFIABLE ) Diagnoses Atrial fibrillation with RVR I48.91 Acute respiratory failure with hypoxia J96.01 Pneumonia due to COVID-19 virus U07.1; J12.82 Acute metabolic encephalopathy G93.41 Pancytopenia D61.818 Dementia G20; F02.81 Dementia behavioral disturbance: with behavioral disturbance Dementia type: Parkinson's disease Parkinson disease G20 Atrial fibrillation I48.91 Hypertension I10 Hyperlipidemia E78.5 DVT prophylaxis Z29.9 Additional Codes Prolonged Care Time - Prolonged Care Time: Yes ([id number]) Time Spent (min) 80 (1) Dementia Dementia behavioral disturbance: with behavioral disturbance Dementia type: Parkinson's disease Qualified Code(s): G20 - Parkinson's disease; F02.81 - Dementia in other diseases classified elsewhere with behavioral disturbance
[2021-12-11] MEDS: DONEPEZIL HCL 10 MG TAB PO SCH (20:18)
[2021-12-11] MEDS: ATORVASTATIN 20 MG TAB PO SCH (20:19)
[2021-12-11] MEDS: haloperidoL 0.5 MG TAB PO SCH (20:20)
[2021-12-11] MEDS: MELATONIN 3 MG TAB PO SCH (20:24)
[2021-12-12 04:29] LABS: Hemoglobin 11.8 g/dl (14.0-18.0); Mean Corpuscular Hemoglobin 31.1 pg (25.0-34.0); Mean Corpuscular Hgb Conc 34.7 g/dL (32.0-36.0); Mean Corpuscular Volume 89.7 fL (80.0-100.0); Mean Platelet Volume 9.7 fL (9.4-12.4); Platelet Count 216 K/uL (130-400); RDW Coefficient of Variation 12.6 % (11.5-14.5); RDW Standard Deviation 41.3 fL (36.4-46.3); Red Blood Count 3.79 M/uL (4.63-6.08); White Blood Count 10.35 K/ul (4.8-10.8)
[2021-12-12 04:53] LABS: Calcium 8.1 mg/dl (8.5-10.1); Est GFR (African American) 95.8 ml/min; Est GFR (Non-African American) 82.7 ml/min; Potassium 3.9 mmol/L (3.5-5.1)
[2021-12-12 05:12] LABS: Troponin I High Sensitivity 43.6 pg/ml (0-20)
[2021-12-12] MEDS: CARBIDOPA/LEVODOPA 25/100MG TAB PO SCH ×3 (08:07→20:44)
[2021-12-12] MEDS: METOPROLOL TARTRATE 25 MG TAB PO SCH ×2 (08:07→20:53)
[2021-12-12] MEDS: DOXYCYCLINE HYCLATE 100 MG CAP PO SCH ×2 (08:08→20:52)
[2021-12-12] MEDS: APIXABAN 5 MG TABLET PO SCH ×2 (08:08→20:51)
[2021-12-12] MEDS: allopurinoL 100 MG TAB PO SCH (08:08)
[2021-12-12] MEDS: CHOLECALCIFEROL 1,000 UNITS 25 MCG TAB PO SCH ×2 (08:08→20:51)
[2021-12-12] MEDS: KETOCONAZOLE 2% CR 15 GM TUBE EXT SCH (08:09)
--- NOTE | 2021-12-12 08:59 | Electrocardiogram Report ---
Test Reason : Blood Pressure : / mmHG Vent. Rate : 102 BPM Atrial Rate : 050 BPM P-R Int : 000 ms QRS Dur : 088 ms QT Int : 366 ms P-R-T Axes : 000 049 266 degrees QTc Int : 477 ms Poor data quality, interpretation may be adversely affected Atrial fibrillation with rapid ventricular response with premature ventricular or aberrantly conducte d complexes Abnormal ECG When compared with ECG of 07-DEC-2021 17:49, HR has increased by 41 bpm Sinus rhythm no longer present ST depression in Anterolateral leads now present Confirmed by Melo Candelario ([id number]) on 12/12/2021 8:58:43 AM Referred By: REFERRED SELF Confirmed By:Melo Candelario
[2021-12-12] MEDS: cefTRIAXone SODIUM 2,000 MG in DEXTROSE 5% 50 ML IV SCH (09:02)
[2021-12-12] MEDS: dexAMETHasone 6 MG in SYRINGE 0 ML IV SCH (09:31)
[2021-12-12] MEDS: REMDESIVIR 100 MG in SODIUM CHLORIDE 0.9% 230 ML IV SCH (12:00)
--- NOTE | 2021-12-12 20:04 | Hospitalist Progress Note ---
Date of Service December 12, 2021 Assessment & Plan (1) Atrial fibrillation with RVR: Plan: Prior h/o a.fib/flutter in 2019, 2020, etc requiring hospitalization. Resolved - converted back to NSR overnight. Stop cardizem infusion. Cont metoprolol. Will d/w cardiology whether to start amiodarone for rhythm control given how fast his PAF episode was (peak 180s). Minimal troponin elevation is 2nd to myocardial demand ischemia. (2) Acute respiratory failure with hypoxia: Plan: Resolving. 2nd to #3. I cannot rule out concomitant, superimposed bacterial pneumonia (elevated procal, etc). Cont supportive care. (3) Pneumonia due to COVID-19 virus: Plan: Improved. Day 3 of 5 of Remdesivir x 5 days. Day #3 of dexamethasone 6mg IV daily. Due to elevated procal - continue rocephin 2gm IV daily and doxy BID for atypical coverage. Day #3 of each. Cont supportive care, pulm toilet w/ flutter valve, etc. Video swallow results noted and care d/w speech therapy. No aspiration noted on study. Defer on aspiration coverage at this time. Repeat AST/ALT in am given the Remdesivir usage. AST minimally elevated and CPK minimally elevated. Supportive care. (4) Acute metabolic encephalopathy: Plan: 2nd to #3 in the setting of dementia. Supportive care. Avoid benzos & sedatives. Haldol 0.5mg po HS. Soft mitts due to pulling at IVs, etc. (5) Pancytopenia: Plan: 2nd to COVID infection. Improved. (6) Dementia: Plan: advanced 2nd to PD (7) Parkinson disease: Plan: cont sinemet - increase to 1.5 tabs TID due to worsening tremors. there is literature showing that neurological conditions such as PD often have worse symptoms during COVID illness cont PT, OT (8) Atrial fibrillation: Plan: see #1 cont eliquis cont BB (9) Hypertension: Plan: Cont metoprolol Cont to hold CRIS controlled (10) Hyperlipidemia: Plan: Cont lipitor While on Remdesivir check ast/alt daily Hold terbinafine (is on such for onychomycosis) in light of multiple meds that can cause liver inflammation (11) DVT prophylaxis: Plan: Eliquis 5mg BID Plan extensively updated by phone this evening Admission and Anticipated Discharge Date Admission Date: December 07, 2021 Subjective converted back to NSR about midnight last pm since he has had NSR, SB, and occasional brief runs of PAF during the visit he had mitts on his hands due to pulling at IVs etc eating well per staff Review of Systems Review of Systems: Unobtainable due to cognitive status Physical Exam Physical Exam: gen - NAD, smiling, looks good today mouth - MMM neck - no JVD heart - RRR, s1 s2, no murmur lungs - decreased BS bases, no wheezes; no increased work of breathing abd - soft NT ND BS+ ext - no edema, pulses 2+ b/l psych - oriented to person only neuro - tremors of arms Results & Data Results & Data ([facility]) Vital Signs (Past 12 Hours) Vital Signs Temp Pulse Resp BP Pulse Ox O2 Del Method O2 Flow Rate 12/12/21 18:01 59 L 25 H 95 12/12/21 18:01 139/82 12/12/21 18:00 69 18 96 12/12/21 17:00 58 L 22 99 12/12/21 17:00 140/77 12/12/21 16:00 64 90 12/12/21 15:02 60 28 H 91 12/12/21 15:02 131/89 12/12/21 15:00 55 L 22 89 L 12/12/21 16:00 36.6 C 12/12/21 15:43 56 L 12/12/21 14:00 57 L 24 91 12/12/21 14:00 123/82 12/12/21 13:01 126 H 34 H 94 12/12/21 13:01 136/73 12/12/21 13:00 101 H 25 H 94 12/12/21 12:01 57 L 19 89 L 12/12/21 12:01 102/66 12/12/21 12:00 53 L 22 87 L 12/12/21 11:00 56 L 22 92 12/12/21 11:00 115/68 12/12/21 10:13 130/72 12/12/21 10:13 64 20 98 12/12/21 10:00 73 24 98 12/12/21 12:00 36.9 C 12/12/21 09:23 64 23 99 12/12/21 09:23 115/72 12/12/21 09:16 153/115 H 12/12/21 09:16 56 L 25 H 99 12/12/21 09:00 58 L 18 98 12/12/21 08:12 108 H 23 99 12/12/21 08:12 144/107 H 12/12/21 08:46 Nasal Cannula 2 Laboratory Results Laboratory Results - last 24 hr 12/11/21 12/12/21 12/12/21 20:17 03:59 03:59 WBC 10.35 RBC 3.79 L Hgb 11.8 L Hct 34.0 L MCV 89.7 MCH 31.1 MCHC 34.7 RDW Std Deviation 41.3 RDW Coeff of [place] 12.6 Plt Count 216 D MPV 9.7 Sodium Potassium Chloride Carbon Dioxide Anion Gap BUN Creatinine Est Cr Clr Drug Dosing Est GFR ( Amer) Est GFR (Non-Af Amer) BUN/Creatinine Ratio Glucose Calcium AST ALT Total Creatine Kinase Troponin I High Sens 28.5 H D TSH 0.512 12/12/21 03:59 WBC RBC Hgb Hct MCV MCH MCHC RDW Std Deviation RDW Coeff of [place] Plt Count MPV Sodium 140 Potassium 3.9 Chloride 107 Carbon Dioxide 26 Anion Gap 7 BUN 27 H Creatinine 0.90 Est Cr Clr Drug Dosing 70.0 Est GFR ( Amer) 95.8 Est GFR (Non-Af Amer) 82.7 BUN/Creatinine Ratio 30.0 H Glucose 106 H Calcium 8.1 L AST 63 H ALT 16 Total Creatine Kinase 426 H Troponin I High Sens 43.6 H D TSH PG Care Time/CCT Total # of Minutes Spent Total Time Spent with Patient: Total time spent is greater than 50% in coordination of care (as documented) at patient's floor/unit and/or counseling patient: Coding Level of Care Code 27552 Subseq Hosp Care Lvl 3 Diagnoses Atrial fibrillation with RVR I48.91 Acute respiratory failure with hypoxia J96.01 Pneumonia due to COVID-19 virus U07.1; J12.82 Acute metabolic encephalopathy G93.41 Pancytopenia D61.818 Dementia G20; F02.81 Dementia behavioral disturbance: with behavioral disturbance Dementia type: Parkinson's disease Parkinson disease G20 Atrial fibrillation I48.91 Hypertension I10 Hyperlipidemia E78.5 DVT prophylaxis Z29.9 (1) Dementia Dementia behavioral disturbance: with behavioral disturbance Dementia type: Parkinson's disease Qualified Code(s): G20 - Parkinson's disease; F02.81 - Dementia in other diseases classified elsewhere with behavioral disturbance
[2021-12-12] MEDS: DONEPEZIL HCL 10 MG TAB PO SCH (20:50)
[2021-12-12] MEDS: ATORVASTATIN 20 MG TAB PO SCH (20:51)
[2021-12-12] MEDS: haloperidoL 0.5 MG TAB PO SCH (20:52)
[2021-12-12] MEDS: MELATONIN 3 MG TAB PO SCH (20:55)
--- NOTE | 2021-12-13 06:26 | Electrocardiogram Report ---
Test Reason : Blood Pressure : / mmHG Vent. Rate : 055 BPM Atrial Rate : 055 BPM P-R Int : 120 ms QRS Dur : 088 ms QT Int : 474 ms P-R-T Axes : 028 013 -01 degrees QTc Int : 453 ms Sinus bradycardia Otherwise normal ECG When compared with ECG of 11-DEC-2021 18:57, Sinus rhythm has replaced Atrial fibrillation Vent. rate has decreased BY [address] no longer depressed in Anterolateral leads T wave inversion no longer evident in Anterolateral leads Confirmed by David Mckeon ([id number]) on 12/13/2021 6:26:07 AM Referred By: REFERRED SELF Confirmed By:David Mckeon
[2021-12-13 07:04] LABS: BUN Creatinine Ratio 33.3 (10-20); Calcium 7.9 mg/dl (8.5-10.1); Creatinine Clr Calc Pharmacy 68.2 ml/min; Est GFR (African American) 95.8 ml/min; Est GFR (Non-African American) 82.7 ml/min; Troponin I High Sensitivity 23.7 pg/ml (0-20)
[2021-12-13] MEDS: allopurinoL 100 MG TAB PO SCH (09:11)
[2021-12-13] MEDS: CARBIDOPA/LEVODOPA 25/100MG TAB PO SCH ×3 (09:12→21:35)
[2021-12-13] MEDS: cefTRIAXone SODIUM 2,000 MG in DEXTROSE 5% 50 ML IV SCH (09:13)
[2021-12-13] MEDS: CHOLECALCIFEROL 1,000 UNITS 25 MCG TAB PO SCH ×2 (09:13→21:34)
[2021-12-13] MEDS: APIXABAN 5 MG TABLET PO SCH ×2 (09:13→21:35)
[2021-12-13] MEDS: DOXYCYCLINE HYCLATE 100 MG CAP PO SCH ×2 (09:14→21:33)
[2021-12-13] MEDS: METOPROLOL TARTRATE 25 MG TAB PO SCH ×2 (09:14→21:34)
[2021-12-13] MEDS: dexAMETHasone 6 MG in SYRINGE 0 ML IV SCH (09:15)
[2021-12-13] MEDS: KETOCONAZOLE 2% CR 15 GM TUBE EXT SCH (09:15)
[2021-12-13] MEDS: REMDESIVIR 100 MG in SODIUM CHLORIDE 0.9% 230 ML IV SCH (12:14)
[2021-12-13] MEDS ORDERED: LORazepam 1 MG in SYRINGE 0.5 ML IV STA (15:42)
[2021-12-13] MEDS ORDERED: QUEtiapine FUMARATE 25 MG TABLET PO PRN (19:21)
[2021-12-13] MEDS: MELATONIN 3 MG TAB PO SCH (21:33)
[2021-12-13] MEDS: ATORVASTATIN 20 MG TAB PO SCH (21:34)
[2021-12-13] MEDS: DONEPEZIL HCL 10 MG TAB PO SCH (21:36)
--- NOTE | 2021-12-13 21:51 | Hospitalist Progress Note ---
Date of Service December 13, 2021 Assessment & Plan (1) Dystonic movements: Plan: I observed Mr Rodriguez for about 15 minutes. Pt's son was present. SEVERE tremors of all 4 limbs. Some movements looked like myoclonic jerks; some looked like severe dystonia. Can't rule out seizure activity but less suspicious for such. Can't rule out that some of the behavior was due to agitated delirium (pointing at things in the air, looking at ceiling, etc). Can't rule out that haldol at bedtime is worsening some of his PD symptoms. [place] Diallo [place] [facility] [place] [facility] [place] plan - * EEG in am * stop haldol; change to seroquel 12.5mg PO HS prn * formal consult with Dr Diallo tomorrow * ativan IV prn possible seizure (2) Atrial fibrillation with RVR: Plan: Prior h/o a.fib/flutter in 2019, 2019, etc requiring hospitalization. Severe episode of PAF with rates to 180s on 12/11/21; resolved after 5 hours, converted back to NSR. Easily was rate controlled with low-dose cardizem infusion. This has been stopped. Cont metoprolol. I discussed his PAF with cardiology whether to start amiodarone for rhythm control given how fast his PAF episode was (peak 180s). Cardiology advised to hold off for now but if he has another episode to initiate amiodarone then. Minimal troponin elevation was 2nd to myocardial demand ischemia in setting of rapid a.fib. (3) Acute respiratory failure with hypoxia: Plan: Resolved. Stable in RA. 2nd to #4. I cannot rule out concomitant, superimposed bacterial pneumonia (elevated procal, etc). Cont supportive care. (4) Pneumonia due to COVID-19 virus: Plan: Improved. Day 4 of 5 of Remdesivir x 5 days. Day #4 of dexamethasone 6mg IV daily. Due to elevated procal - continue rocephin 2gm IV daily and doxy BID for atypical coverage. Day #4 of each. Cont supportive care, pulm toilet w/ flutter valve, etc. Video swallow results noted and care d/w speech therapy. No aspiration noted on study. Defer on aspiration coverage at this time. Repeat AST/ALT in am given the Remdesivir usage. AST minimally elevated and CPK minimally elevated. Supportive care. (5) Acute metabolic encephalopathy: Plan: SEVERE 2nd to COVID, hospital psychosis, etc - all in the setting of dementia. Supportive care. Avoid benzos & sedatives. stop Haldol - change to seroquel at neurology recommendation. ammonia level wnl earlier this admission (6) Pancytopenia: Plan: 2nd to COVID infection. Improved. (7) Dementia: Plan: advanced 2nd to PD (8) Parkinson disease: Plan: cont sinemet - increased to 1.5 tabs TID due to worsening tremors. there is literature showing that neurological conditions such as PD often have worse symptoms during COVID illness formal neuro consult in am - see above cont PT, OT (9) Atrial fibrillation: Plan: see #2 above cont eliquis cont BB (10) Hypertension: Plan: Cont metoprolol Resume CRIS (11) Hyperlipidemia: Plan: Cont lipitor While on Remdesivir check ast/alt daily Hold terbinafine (is on such for onychomycosis as outpatient) in light of multiple meds that can cause liver inflammation (12) DVT prophylaxis: Plan: Eliquis 5mg BID Plan extensively updated by phone several times this week son updated at bedside today Admission and Anticipated Discharge Date Admission Date: December 07, 2021 Subjective called urgently by nursing in the early afternoon due to concern for seizures son was at bedside he told staff he had seen multiple brief episodes of severe jerks/tremors of his arms associated at times of eyes rolling back I came to bedside - patient VERY confused; not following commands; talking randomly; looking up at ceiling randomly, reaching out for things occasionally tremors very severe of all 4 limbs; some myoclonic jerks noted as well I did note eyes rolling back at times, but at one time he spoke 1-2 seconds immediately following one of those episodes I did not note any tonic-clonic seizures staff report poor appetite tele overnight -- no a.fib following son's departure, the patient fell asleep and was much more calm and no seizures or seizure-like activity seen tremors improved following his departure as well Review of Systems Review of Systems: Unobtainable due to cognitive status Physical Exam Physical Exam: gen - severe confusion/encephalopathy; appears very agitated; severe tremors all 4 limbs +/- myoclonic jerks; some eye rolling but very random; no staring spells; some spontaneous talking but very random and incoherent mouth - MMM neck - no JVD heart - RRR, s1 s2, no murmur lungs - decreased BS bases, no wheezes; no increased work of breathing abd - soft NT ND BS+ ext - no edema, pulses 2+ b/l psych - not alert; not oriented neuro - as above Results & Data Results & Data ([facility]) Vital Signs (Past 12 Hours) Vital Signs Temp Pulse Pulse Resp BP BP Pulse Ox 12/13/21 19:47 36.9 C 64 18 133/62 94 12/13/21 14:22 47 L 12/13/21 15:45 36.3 C L 56 L 22 160/109 H 93 12/13/21 12:33 36.7 C 60 16 131/70 95 O2 Del Method 12/13/21 19:47 Room Air 12/13/21 14:22 12/13/21 15:45 Room Air 12/13/21 12:33 Room Air Laboratory Results Laboratory Results - last 24 hr 12/13/21 12/13/21 05:58 05:58 Sodium 139 Potassium 4.0 Chloride 108 H Carbon Dioxide 26 Anion Gap 5 BUN 30 H Creatinine 0.90 Est Cr Clr Drug Dosing 68.2 Est GFR ( Amer) 95.8 Est GFR (Non-Af Amer) 82.7 BUN/Creatinine Ratio 33.3 H Glucose 109 H Calcium 7.9 L Magnesium 2.0 AST Cancelled 64 H ALT Cancelled 39 Troponin I High Sens 23.7 H D PG Care Time/CCT Total # of Minutes Spent Total Time Spent with Patient: Total time spent is greater than 50% in coordination of care (as documented) at patient's floor/unit and/or counseling patient: Coding Level of Care Code 51183 Subseq Hosp Care Lvl 3 Diagnoses Dystonic movements G24.9 Atrial fibrillation with RVR I48.91 Acute respiratory failure with hypoxia J96.01 Pneumonia due to COVID-19 virus U07.1; J12.82 Acute metabolic encephalopathy G93.41 Pancytopenia D61.818 Dementia G20; F02.81 Dementia behavioral disturbance: with behavioral disturbance Dementia type: Parkinson's disease Parkinson disease G20 Atrial fibrillation I48.91 Hypertension I10 Hyperlipidemia E78.5 DVT prophylaxis Z29.9 (1) Dementia Dementia behavioral disturbance: with behavioral disturbance Dementia type: Parkinson's disease Qualified Code(s): G20 - Parkinson's disease; F02.81 - Dementia in other diseases classified elsewhere with behavioral disturbance
--- NOTE | 2021-12-14 08:30 | Neurology Consultation ---
Date of Consultation December 14, 2021 Assessment & Plan (1) Lewy body dementia: Plan 76-year-old male who is known to the neurology service, probably has Lewy body disease, initially developed dementia, later followed by parkinsonism, although has not had overt visual hallucinations, has become increasingly agitated/delirious in the context of this current hospitalization for COVID-19 pneumonia complicated by metabolic encephalopathy/sepsis. I do not think he has classic Parkinson's disease. At this point, given patient's persistent myoclonic jerking and delirium, I would recommend reducing his dosage of Sinemet to 1/2 tablet 3 times per day. May utilize Seroquel to address agitated delirium. Consider increasing his dosage depending on clinical status and response going forward. Would avoid Haldol as this medication would have a greater likelihood of aggravating his pa rkinsonism. Continue with donepezil 10 mg in the evening for the time being. If patient's myoclonic jerking does not improve, however, would consider reducing his dosage of donepezil to 5 mg in the evening. EEG to be completed this morning. May consider adding Keppra 250 mg twice daily to address myoclonic jerking. I will follow along. History of Present Illness Reason for Consultation: Parkinson's, dementia Requesting Physician: Del Mcgowan MD Attending Physician: Tiffanie Nicole MD History of Present Illness The patient is a 76-year-old male with a history of dementia parkinsonism complex, known to the [facility] neurology service, I last saw him in October 2020 although he has had a few follow-up visits with our advanced practice provider, Betty White PA-C, as well since that time. His history is notable for dementia with later development of parkinsonism characterized by bilateral upper extremity resting tremor and bradykinesia. He is on donepezil and Sinemet. His dementia has become progressively more severe. He was last seen in neurology clinic September 06, 2021. At that point in time, no falls, hallucinations, or dizziness. Becoming progressively less engaged with conversation, a bit more withdrawn, was still independent for basic ADLs such as bathing and dressing. No changes were made in patient's medication regimen at that time. He had presented to the emergency department December 07, 2021 for confusion, was found wandering outside by his spouse, had called the fire department for assistance. Patient was weak, not acting like himself. Nonverbal. Febrile, fever of 103 F. Had a positive SARS-CoV-2 PCR, diagnosed with COVID infection, associated sepsis, metabolic encephalopathy. History notable for atrial fibrillation, on Eliquis. Has been receiving remdesivir and dexamethasone for treatment of COVID-19 related pneumonia. [place] to have resolving acute respiratory failure with hypoxia. Patient has exhibited per sistent encephalopathy, however, avoiding benzodiazepines, sedatives, etc., although has been receiving Haldol in the evening to address agitated delirium, also has soft mitts as he has been pulling at his IVs. Patient has been observed to have fairly continuous myoclonic type jerking of the limbs, variable intensity, eyes will roll back, sometimes very confused, not following commands, speaking randomly, sometimes looking up at the ceiling, reaching out for things occasionally. I had discussed his case with Dr. Mcgowan yesterday. Myoclonic jerking, possible dystonia in the context of advancing Parkinson's disease or parkinsonism, complicated by agitated delirium, episodes not highly suggestive of seizures. Nonetheless, EEG recommended for the morning. Haldol was discontinued in favor of Seroquel at bedtime as necessary. Patient is difficult to arouse this morning, he is an unreliable historian. Continues to exhibit intermittent generalized myoclonic jerking of the limbs, not stimulus induced. Allergies Allergy/AdvReac Type Severity Reaction Status Date / Time shellfish derived AdvReac Unknown D/T Verified 12/07/21 19:46 GOUT--DOESN'T EAT. Home Medications Medication Instructions Recorded Confirmed Type lisinopril 10 mg tablet 10 mg PO DAILY #90 tabs 02/26/21 12/07/21 Rx carbidopa 25 mg-levodopa 100 mg 1 tab PO TID #270 tabs 03/12/21 12/07/21 Rx tablet donepezil 10 mg tablet 10 mg PO HS 90 days #90 tabs 03/12/21 12/07/21 Rx cholecalciferol (vitamin D3) 50 50 mcg PO BID 90 days #180 caps 08/10/21 12/07/21 Rx mcg (2,000 unit) capsule metoprolol succinate 50 mg 50 mg PO DAILY #90 tabs 08/12/21 12/07/21 Rx tablet,extended release 24 hr apixaban 5 mg tablet (Eliquis) 5 mg PO BID #180 tabs 09/01/21 12/07/21 Rx allopurinol 100 mg tablet 100 mg PO DAILY #90 tabs 11/19/21 12/07/21 Rx (Zyloprim) atorvastatin 20 mg tablet (Lipitor) 20 mg PO QPM #90 tabs 11/29/21 12/07/21 Rx ketoconazole 2 % topical cream 1 applic topical DAILY 12/07/21 12/07/21 History terbinafine HCl 250 mg tablet 250 mg PO QPM 12/07/21 12/07/21 History Patient History Medical History (Updated 12/14/21 @ 08:24 by Raffi Diallo MD) Anemia Atrial fibrillation Atrial flutter Cardiomyopathy Gout Hyperlipemia Hypertension Neurocognitive deficits SDAT (senile dementia of Alzheimer's type) SVT (supraventricular tachycardia) Surgical History H/O cardiac radiofrequency ablation Family History Father Gout Tremor Social History Smoking Status: Unknown if ever smoked Second Hand Exposure: No; Hx Alcohol Use: Yes Alcohol type: beer and hard liquor Hx Substance Use: No Preferred Language: Korean Communication Ability: Impaired Pasta Maker Required: No Beliefs That Will Affect Care: None marital status: Current Living Situation: Spouse Feels Safe at Home: Yes Assistive Devices: Wheelchair Review of Systems Review of Systems: Unobtainable due to cognitive status Exam (Neuro) Constitutional: + behavioral limitations Eyes: PERRL and EOM intact bilaterally Cardiovascular: Vessels: no carotid bruit Neurologic: Oriented to:: negative Person, Place or Time Cognitive Function: negative Attention or Concentration Memory: negative Short Term Intact or Remote Intact Attention: negative Span Intact or Concentration Intact Speech Fluency: Other (Minimal speech, essentially nonverbal) Fund of Knowledge: negative Current Events, Past History or Vocabulary Cranial Nerves: Normal II, III, IV, , V, VII, VIII, IX, X, XI and XII Motor Strength: negative Normal Lower Extremities or Normal Upper Extremities Rigidity: Rigidity Muscle Bulk/Involuntary Movements: negative Rest Tremor (Arm) Deep Tendon Reflexes: Rt Triceps: 1+, Lt Triceps: 1+, Rt Biceps: 1+, Lt Biceps: 1+, Rt Brachioradialis: 1+, Lt Brachioradialis: 1+, Rt Patellar: 1+, Lt Patellar: 1+, Rt Ankle: 1+ and Lt Ankle: 1+ Special Tests: negative Babinski Present Details: Exhibits fairly persistent myoclonic jerking of all 4 limbs. Unable to assess sensation due to altered mental status. Unable to assess coordination due to altered mental status. Gait cannot be tested due to current neurological status. Direct ophthalmoscopic examination cannot be completed due to current neurological status, poor patient cooperation. Results & Data ([facility]) Vital Signs (Past 12 Hours) Vital Signs Temp Pulse Pulse Resp BP Pulse Ox O2 Del Method 12/14/21 03:20 36.8 C 55 L 16 157/79 H 94 Room Air 12/13/21 22:25 58 L 12/14/21 00:06 36.3 C L 55 L 16 144/77 H 93 Room Air Laboratory Results WBC 10.35, hemoglobin 11.8, hematocrit 34.0, MCV 89.7, platelet count 216, sodium 139, potassium 4.0, BUN 30, creatinine 0.90, glucose 109, calcium 7.9, magnesium 2.0, AST 64, ALT 39, TSH 0.512. Diagnostic Findings CT of the head completed December 07, 2021 revealed age-related involutional change with mild subcortical and periventricular microangiopathic disease. I independently reviewed the images. No hydrocephalus, no acute hemorrhage. There is generalized atrophy with an element of associated hydrocephalus ex vacuo. An electrocardiogram completed yesterday revealed sinus bradycardia, 55 bpm. An echocardiogram completed December 09, 2021 revealed normal left ventricular systolic function, mild concentric left ventricular hypertrophy, mild aortic valve sclerosis, normal left atrial size. Coding Level of Care Code 52524 Initial Inpt Care Lvl 3 Diagnoses Lewy body dementia G31.83; F02.80
[2021-12-14] MEDS: allopurinoL 100 MG TAB PO SCH (09:37)
[2021-12-14] MEDS: APIXABAN 5 MG TABLET PO SCH ×2 (09:37→20:16)
[2021-12-14] MEDS: METOPROLOL TARTRATE 25 MG TAB PO SCH ×2 (09:37→20:16)
[2021-12-14] MEDS: CARBIDOPA/LEVODOPA 25/100MG TAB PO SCH ×3 (09:37→20:17)
[2021-12-14] MEDS: DOXYCYCLINE HYCLATE 100 MG CAP PO SCH ×2 (09:37→20:16)
[2021-12-14] MEDS: CHOLECALCIFEROL 1,000 UNITS 25 MCG TAB PO SCH ×2 (09:37→20:18)
[2021-12-14] MEDS: cefTRIAXone SODIUM 2,000 MG in DEXTROSE 5% 50 ML IV SCH (09:37)
[2021-12-14] MEDS: KETOCONAZOLE 2% CR 15 GM TUBE EXT SCH (09:38)
[2021-12-14] MEDS: lisinopril 10 MG TAB PO SCH (09:38)
[2021-12-14 09:57] LABS: Hematocrit (blood only) 34.5 % (40.1-51.0); Hemoglobin 11.7 g/dl (14.0-18.0); Mean Corpuscular Hemoglobin 30.7 pg (25.0-34.0); Mean Corpuscular Hgb Conc 33.9 g/dL (32.0-36.0); Mean Corpuscular Volume 90.6 fL (80.0-100.0); Mean Platelet Volume 9.9 fL (9.4-12.4); Platelet Count 257 K/uL (130-400); RDW Coefficient of Variation 12.6 % (11.5-14.5); RDW Standard Deviation 41.6 fL (36.4-46.3); Red Blood Count 3.81 M/uL (4.63-6.08); White Blood Count 10.87 K/ul (4.8-10.8)
--- NOTE | 2021-12-14 10:40 | Electroencephalogram ---
EEG Procedure Note Date of Service December 14, 2021 Start / End Times Start Time: 10:12 AM End Time: 10:32 AM Referring Physician Del Mcgowan MD History Encephalopathy, myoclonic jerking, rule out seizures Home Medication List Medication Instructions Recorded Confirmed Type lisinopril 10 mg tablet 10 mg PO DAILY #90 tabs 02/26/21 12/07/21 Rx carbidopa 25 mg-levodopa 100 mg 1 tab PO TID #270 tabs 03/12/21 12/07/21 Rx tablet donepezil 10 mg tablet 10 mg PO HS 90 days #90 tabs 03/12/21 12/07/21 Rx cholecalciferol (vitamin D3) 50 50 mcg PO BID 90 days #180 caps 08/10/21 12/07/21 Rx mcg (2,000 unit) capsule metoprolol succinate 50 mg 50 mg PO DAILY #90 tabs 08/12/21 12/07/21 Rx tablet,extended release 24 hr apixaban 5 mg tablet (Eliquis) 5 mg PO BID #180 tabs 09/01/21 12/07/21 Rx allopurinol 100 mg tablet 100 mg PO DAILY #90 tabs 11/19/21 12/07/21 Rx (Zyloprim) atorvastatin 20 mg tablet (Lipitor) 20 mg PO QPM #90 tabs 11/29/21 12/07/21 Rx ketoconazole 2 % topical cream 1 applic topical DAILY 12/07/21 12/07/21 History terbinafine HCl 250 mg tablet 250 mg PO QPM 12/07/21 12/07/21 History Inpatient Medication List Acetaminophen (Acetaminophen 325 Mg Tab) 650 mg PO Q4H PRN PRN Reason: Pain or Fever Stop: 01/06/22 23:51 Last Admin: 12/10/21 08:05 Dose: 650 mg Documented By: Admin: 12/09/21 16:29 Dose: 650 mg Documented By: Admin: 12/09/21 00:10 Dose: 650 mg Documented By: ERICA Allopurinol (Allopurinol 100 Mg Tab) 100 mg PO DAILY YASMINE Stop: 01/07/22 08:59 Last Admin: 12/14/21 09:37 Dose: 100 mg Documented By: Admin: 12/13/21 09:11 Dose: 100 mg Documented By: Admin: 12/12/21 08:08 Dose: 100 mg Documented By: Admin: 12/11/21 08:18 Dose: 100 mg Documented By: Admin: 12/10/21 08:03 Dose: 100 mg Documented By: Admin: 12/09/21 07:33 Dose: 100 mg Documented By: Admin: 12/08/21 09:40 Dose: 100 mg Documented By: ANANTH Apixaban (Apixaban 5 Mg Tablet) 5 mg PO BID YASMINE Stop: 01/06/22 23:51 Last Admin: 12/14/21 09:37 Dose: 5 mg Documented By: Admin: 12/13/21 21:35 Dose: 5 mg Documented By: Admin: 12/13/21 09:13 Dose: 5 mg Documented By: Admin: 12/12/21 20:51 Dose: 5 mg Documented By: Admin: 12/12/21 08:08 Dose: 5 mg Documented By: Admin: 12/11/21 20:22 Dose: 5 mg Documented By: Admin: 12/11/21 08:18 Dose: 5 mg Documented By: Admin: 12/10/21 21:22 Dose: 5 mg Documented By: Admin: 12/10/21 08:03 Dose: 5 mg Documented By: Admin: 12/09/21 19:55 Dose: 5 mg Documented By: Admin: 12/09/21 07:34 Dose: 5 mg Documented By: Admin: 12/08/21 20:21 Dose: 5 mg Documented By: Admin: 12/08/21 09:38 Dose: 5 mg Documented By: Admin: 12/08/21 02:34 Dose: 5 mg Documented By: KARTIK Atorvastatin Calcium (Atorvastatin 20 Mg Tab) 20 mg PO QPM YASMINE Stop: 01/06/22 23:51 Last Admin: 12/13/21 21:34 Dose: 20 mg Documented By: Admin: 12/12/21 20:51 Dose: 20 mg Documented By: Admin: 12/11/21 20:19 Dose: 20 mg Documented By: Admin: 12/10/21 21:23 Dose: 20 mg Documented By: Admin: 12/09/21 19:56 Dose: 20 mg Documented By: Admin: 12/08/21 20:21 Dose: 20 mg Documented By: Admin: 12/08/21 02:34 Dose: 20 mg Documented By: KARTIK Carbidopa/Levodopa (Carbidopa/Levodopa 25/100mg Tab) 0.5 tab PO TID YASMINE Stop: 01/13/22 08:59 Last Admin: 12/14/21 09:37 Dose: 0.5 tab Documented By: JAKE Donepezil HCl (Donepezil Hcl 10 Mg Tab) 10 mg PO HS YASMINE Stop: 01/06/22 23:51 Last Admin: 12/13/21 21:36 Dose: 10 mg Documented By: Admin: 12/12/21 20:50 Dose: 10 mg Documented By: Admin: 12/11/21 20:18 Dose: 10 mg Documented By: Admin: 12/10/21 21:24 Dose: 10 mg Documented By: Admin: 12/09/21 19:55 Dose: 10 mg Documented By: Admin: 12/08/21 20:22 Dose: 10 mg Documented By: Admin: 12/08/21 02:34 Dose: 10 mg Documented By: KARTIK Doxycycline Hyclate (Doxycycline Hyclate 100 Mg Cap) 100 mg PO BID YASMINE Stop: 12/17/21 20:59 Last Admin: 12/14/21 09:37 Dose: 100 mg Documented By: Admin: 12/13/21 21:33 Dose: 100 mg Documented By: Admin: 12/13/21 09:14 Dose: 100 mg Documented By: Admin: 12/12/21 20:52 Dose: 100 mg Documented By: Admin: 12/12/21 08:08 Dose: 100 mg Documented By: Admin: 12/11/21 20:20 Dose: 100 mg Documented By: Admin: 12/11/21 08:18 Dose: 100 mg Documented By: Admin: 12/10/21 21:24 Dose: 100 mg Documented By: GUSTABO Dexamethasone 6 mg/ Syringe 1.5 mls @ 1 mls/min IV Q24H YASMINE Stop: 12/20/21 09:29 Last Admin: 12/13/21 09:15 Dose: 1 mls/min Documented By: Admin: 12/12/21 09:31 Dose: 1 mls/min Documented By: Admin: 12/11/21 08:19 Dose: 1 mls/min Documented By: Admin: 12/10/21 10:36 Dose: 1 mls/min Documented By: EDINSON Remdesivir 100 mg/ Sodium (Chloride) 250 mls @ 250 mls/hr IV Q24H YASMINE Stop: 12/14/21 12:59 Last Infusion: 12/13/21 13:51 Dose: 0 mls/hr Documented By: Admin: 12/13/21 12:14 Dose: 250 mls/hr Documented By: Infusion: 12/12/21 13:04 Dose: 0 mls/hr Documented By: Admin: 12/12/21 12:00 Dose: 250 mls/hr Documented By: Infusion: 12/11/21 13:35 Dose: 0 mls/hr Documented By: Admin: 12/11/21 12:02 Dose: 250 mls/hr Documented By: MERRY Ceftriaxone Sodium 2,000 mg/ (Dextrose) 70 mls @ 100 mls/hr IV DAILY YASMINE; Protocol Stop: 12/17/21 09:29 Last Admin: 12/14/21 09:37 Dose: 100 mls/hr Documented By: Infusion: 12/13/21 10:39 Dose: 0 mls/hr Documented By: Admin: 12/13/21 09:13 Dose: 100 mls/hr Documented By: Infusion: 12/12/21 09:46 Dose: 0 mls/hr Documented By: Admin: 12/12/21 09:02 Dose: 100 mls/hr Documented By: Infusion: 12/11/21 09:17 Dose: 0 mls/hr Documented By: Admin: 12/11/21 08:19 Dose: 120 mls/hr Documented By: Infusion: 12/10/21 11:19 Dose: 0 mls/hr Documented By: Admin: 12/10/21 10:36 Dose: 100 mls/hr Documented By: EDINSON Ketoconazole (Ketoconazole 2% Cr 15 Gm Tube) 1 appln EXT DAILY YASMINE Stop: 12/18/21 08:59 Last Admin: 12/14/21 09:38 Dose: 1 appln Documented By: Admin: 12/13/21 09:15 Dose: 1 appln Documented By: Admin: 12/12/21 08:09 Dose: 1 appln Documented By: Admin: 12/11/21 08:17 Dose: 1 appln Documented By: Admin: 12/10/21 08:03 Dose: 1 appln Documented By: Admin: 12/09/21 07:40 Dose: 1 appln Documented By: Admin: 12/08/21 09:40 Dose: 1 appln Documented By: ANANTH Lisinopril (Lisinopril 10 Mg Tab) 10 mg PO QAM YASMINE Stop: 01/13/22 08:59 Last Admin: 12/14/21 09:38 Dose: 10 mg Documented By: JAKE Melatonin (Melatonin 3 Mg Tab) 3 mg PO HS YASMINE Stop: 01/10/22 20:59 Last Admin: 12/13/21 21:33 Dose: 3 mg Documented By: Admin: 12/12/21 20:55 Dose: 3 mg Documented By: Admin: 12/11/21 20:24 Dose: 3 mg Documented By: JASON Metoprolol Tartrate (Metoprolol Tartrate 25 Mg Tab) 25 mg PO BID YASMINE Stop: 01/10/22 08:59 Last Admin: 12/14/21 09:37 Dose: 25 mg Documented By: Admin: 12/13/21 21:34 Dose: 25 mg Documented By: Admin: 12/13/21 09:14 Dose: 25 mg Documented By: Admin: 12/12/21 20:53 Dose: 25 mg Documented By: Admin: 12/12/21 08:07 Dose: 25 mg Documented By: Admin: 12/11/21 20:47 Dose: 25 mg Documented By: Admin: 12/11/21 09:07 Dose: 25 mg Documented By: MERRY Quetiapine Fumarate (Quetiapine Fumarate 25 Mg Tablet) 12.5 mg PO HS PRN PRN Reason: agitation/delirium Stop: 01/12/22 20:59 Last Admin: 12/14/21 01:04 Dose: 12.5 mg Documented By: HOMER Terbinafine HCl (Terbinafine Hcl 250 Mg Tab) 250 mg PO QPM YASMINE Stop: 01/06/22 23:51 Last Admin: 12/09/21 19:55 Dose: 250 mg Documented By: Admin: 12/08/21 20:22 Dose: 250 mg Documented By: Admin: 12/08/21 02:34 Dose: 250 mg Documented By: KARTIK Vitamin D (Cholecalciferol 1,000 Units 25 Mcg Tab) 2,000 units PO BID YASMINE Stop: 01/06/22 23:51 Last Admin: 12/14/21 09:37 Dose: 2,000 units Documented By: Admin: 12/13/21 21:34 Dose: 2,000 units Documented By: Admin: 12/13/21 09:13 Dose: 2,000 units Documented By: Admin: 12/12/21 20:51 Dose: 2,000 units Documented By: Admin: 12/12/21 08:08 Dose: 2,000 units Documented By: EELissa Admin: 12/11/21 20:18 Dose: 2,000 units Documented By: Admin: 12/11/21 08:18 Dose: 2,000 units Documented By: Admin: 12/10/21 21:23 Dose: 2,000 units Documented By: Admin: 12/10/21 08:03 Dose: 2,000 units Documented By: Admin: 12/09/21 19:55 Dose: 2,000 units Documented By: Admin: 12/09/21 07:33 Dose: 2,000 units Documented By: Admin: 12/08/21 20:22 Dose: 2,000 units Documented By: Admin: 12/08/21 09:39 Dose: 2,000 units Documented By: Admin: 12/08/21 02:34 Dose: 2,000 units Documented By: KARTIK Discontinued Medications Acetaminophen (Acetaminophen 1000 Mg/100 Ml Iv) 1,000 mg IV NOW STA Stop: 12/07/21 17:54 Last Admin: 12/07/21 18:05 Dose: 1,000 mg Documented By: ROAS MARIA Acetaminophen (Acetaminophen 1000 Mg/100 Ml Iv) Confirm Administered Dose 1,000 mg IV .STK-MED ONE Stop: 12/08/21 11:01 Last Admin: 12/08/21 11:13 Dose: 1,000 mg Documented By: MARGARET Acetaminophen (Acetaminophen 1000 Mg/100 Ml Iv) 1,000 mg IV Q6 PRN PRN Reason: Fever Stop: 12/11/21 11:09 Last Admin: 12/09/21 20:31 Dose: 1,000 mg Documented By: ERICA Carbidopa/Levodopa (Carbidopa/Levodopa 25/100mg Tab) 1 tab PO TID YASMINE Stop: 01/06/22 23:51 Last Admin: 12/12/21 13:06 Dose: 1 tab Documented By: Admin: 12/12/21 08:07 Dose: 1 tab Documented By: Admin: 12/11/21 20:19 Dose: 1 tab Documented By: Admin: 12/11/21 12:02 Dose: 1 tab Documented By: Admin: 12/11/21 08:18 Dose: 1 tab Documented By: Admin: 12/10/21 21:22 Dose: 1 tab Documented By: Admin: 12/10/21 14:13 Dose: 1 tab Documented By: Admin: 12/10/21 08:03 Dose: 1 tab Documented By: Admin: 12/09/21 19:56 Dose: 1 tab Documented By: Admin: 12/09/21 12:49 Dose: 1 tab Documented By: Admin: 12/09/21 07:33 Dose: 1 tab Documented By: Admin: 12/08/21 20:22 Dose: 1 tab Documented By: Admin: 12/08/21 15:37 Dose: Not Given Documented By: Admin: 12/08/21 09:39 Dose: 1 tab Documented By: Admin: 12/08/21 02:34 Dose: 1 tab Documented By: KARTIK Carbidopa/Levodopa (Carbidopa/Levodopa 25/100mg Tab) 1.5 tab PO TID YASMINE Stop: 01/11/22 20:59 Last Admin: 12/13/21 21:35 Dose: 1.5 tab Documented By: Admin: 12/13/21 13:52 Dose: 1.5 tab Documented By: Admin: 12/13/21 09:12 Dose: 1.5 tab Documented By: Admin: 12/12/21 20:44 Dose: 1.5 tab Documented By: ANDRE Diltiazem HCl (Diltiazem Hcl 5 Mg/Ml 5 Ml Vial) 10 mg IV NOW STA Stop: 12/11/21 18:43 Last Admin: 12/11/21 19:29 Dose: Not Given Documented By: MERRY Diltiazem HCl (Diltiazem Hcl 5 Mg/Ml 5 Ml Vial) Confirm Administered Dose 25 mg IV .STK-MED ONE Stop: 12/11/21 18:49 Last Increment: 12/11/21 18:50 Dose: 10 mg Documented By: ALICIA Co-signed By: PIPER Doxycycline Hyclate (Doxycycline Hyclate 100 Mg Cap) 100 mg PO NOW STA Stop: 12/10/21 09:23 Last Admin: 12/10/21 10:37 Dose: 100 mg Documented By: EDINSON Haloperidol (Haloperidol 0.5 Mg Tab) 0.5 mg PO HS YASMINE Stop: 01/10/22 20:59 Last Admin: 12/12/21 20:52 Dose: 0.5 mg Documented By: Admin: 12/11/21 20:20 Dose: 0.5 mg Documented By: TP Sodium Chloride (Nss 1000ml) 1,000 mls @ 999 mls/hr IV .Q1H1M YASMINE Stop: 12/07/21 19:00 Last Infusion: 12/07/21 19:42 Dose: 0 mls/hr Documented By: Admin: 12/07/21 18:05 Dose: 999 mls/hr Documented By: HS Cefepime HCl (Maxipime) 2,000 mg in 20 mls @ 5 mls/min IV NOW STA; Protocol Stop: 12/07/21 17:56 Last Admin: 12/07/21 18:05 Dose: 5 mls/min Documented By: Sodium Chloride (Nss 1000ml) 1,000 mls @ 999 mls/hr IV .Q1H1M YASMINE Stop: 12/07/21 21:47 Last Infusion: 12/07/21 22:34 Dose: 0 mls/hr Documented By: Admin: 12/07/21 21:29 Dose: 999 mls/hr Documented By: Sodium Chloride (Nss 1000ml) 1,000 mls @ 80 mls/hr IV .[id number] YASMINE Stop: 01/06/22 23:51 Last Infusion: 12/10/21 15:33 Dose: 0 mls/hr Documented By: Admin: 12/10/21 10:37 Dose: 80 mls/hr Documented By: Infusion: 12/10/21 10:37 Dose: 80 mls/hr Documented By: Admin: 12/10/21 01:23 Dose: 80 mls/hr Documented By: Infusion: 12/09/21 21:55 Dose: 80 mls/hr Documented By: Admin: 12/09/21 09:25 Dose: 80 mls/hr Documented By: Infusion: 12/09/21 09:25 Dose: 0 mls/hr Documented By: Admin: 12/08/21 20:53 Dose: 80 mls/hr Documented By: Infusion: 12/08/21 20:53 Dose: 80 mls/hr Documented By: Admin: 12/08/21 11:00 Dose: 80 mls/hr Documented By: Infusion: 12/08/21 11:00 Dose: 0 mls/hr Documented By: Admin: 12/08/21 02:41 Dose: 80 mls/hr Documented By: KARTIK Ceftriaxone Sodium 1,000 mg/ (Dextrose) 60 mls @ 100 mls/hr IV DAILY YASMINE; Protocol Stop: 12/10/21 08:59 Last Infusion: 12/09/21 08:51 Dose: 0 mls/hr Documented By: Admin: 12/09/21 07:38 Dose: 100 mls/hr Documented By: Infusion: 12/08/21 11:32 Dose: 0 mls/hr Documented By: Admin: 12/08/21 10:14 Dose: 100 mls/hr Documented By: ANANTH Magnesium Sulfate/Dextrose (Magnesium Sulfate / D5w) 1 gm in 100 mls @ 50 mls/hr IV Q2H [facility] Stop: 12/09/21 16:59 Last Infusion: 12/09/21 18:21 Dose: 0 mls/hr Documented By: Admin: 12/09/21 16:19 Dose: 50 mls/hr Documented By: Infusion: 12/09/21 16:19 Dose: 0 mls/hr Documented By: Admin: 12/09/21 13:50 Dose: 50 mls/hr Documented By: JODI Remdesivir 200 mg/ Sodium (Chloride) 250 mls @ 125 mls/hr IV ONE STA; Protocol Stop: 12/10/21 11:21 Last Infusion: 12/10/21 12:40 Dose: 0 mls/hr Documented By: Admin: 12/10/21 10:36 Dose: 125 mls/hr Documented By: EDINSON Diltiazem HCl 125 mg/ Dextrose 125 mls @ 0 mls/hr IV .Q0M YASMINE; Protocol Stop: 01/10/22 19:14 Last Titration: 12/13/21 23:01 Dose: 0 mg/hr, 0 mls/hr Documented By: HOMER Co-signed By: THEE Titration: 12/12/21 07:40 Dose: 0 mg/hr, 0 mls/hr Documented By: ALAN Co-signed By: PIO Admin: 12/11/21 20:16 Dose: 5 mg/hr, 5 mls/hr Documented By: JASON Co-signed By: PAULA Magnesium Sulfate/Dextrose (Magnesium Sulfate / D5w) 1 gm in 100 mls @ 50 mls/hr IV ONE ONE Stop: 12/11/21 21:04 Last Infusion: 12/11/21 22:15 Dose: 0 mls/hr Documented By: Admin: 12/11/21 20:15 Dose: 50 mls/hr Documented By: JASON Sodium Chloride (Nss 1000ml) 500 mls @ 999 mls/hr IV .Q31M ONE Stop: 12/11/21 19:38 Last Admin: 12/11/21 20:15 Dose: Not Given Documented By: TP Sodium Chloride (Nss 1000ml) 1,000 mls @ 100 mls/hr IV .Q10H YASMINE Stop: 12/12/21 00:14 Last Infusion: 12/12/21 07:38 Dose: 0 mls/hr Documented By: Infusion: 12/12/21 06:16 Dose: 100 mls/hr Documented By: Admin: 12/11/21 20:16 Dose: 100 mls/hr Documented By: TP Lorazepam 1 mg/ Syringe 1 mls @ 2 mls/min IV NOW STA Stop: 12/13/21 15:43 Last Admin: 12/13/21 18:49 Dose: Not Given Documented By: VERONICA Potassium Chloride (Potassium Chloride Crtab 20 Meq Tabcr) 20 meq PO NOW STA Stop: 12/11/21 19:06 Last Admin: 12/11/21 20:15 Dose: 20 meq Documented By: TP Description This is a 21 electrode EEG with a single channel dedicated to limited EKG. The electrodes were placed in accordance with the International 10-20 system. The background rhythm consists of a mix of 9 to 10 Hz alpha activity and superimposed 4 to 5 Hz generalized theta activity. There is intermittent movement artifact throughout the entire study. There is no focal or lateralized slowing. There are no epileptiform abnormalities. No sleep changes. Interpretation Abnormal awake/drowsy EEG with evidence of a moderate encephalopathy. There is frequent movement artifact corresponding with myoclonic limb shaking. No epileptiform abnormalities observed, however. [facility] EEG Procedure Codes Indication for Procedure (1) Myoclonus: (2) Seizure-like activity: Neurology Neurology: 16077 EEG include record awake & drowsy
[2021-12-14 11:10] LABS: Calcium 8.2 mg/dl (8.5-10.1); Creatinine Clr Calc Pharmacy 61.4 ml/min; Est GFR (African American) 84.4 ml/min; Est GFR (Non-African American) 72.8 ml/min; Potassium 3.9 mmol/L (3.5-5.1)
[2021-12-14] MEDS: dexAMETHasone 6 MG in SYRINGE 0 ML IV SCH (11:41)
[2021-12-14] MEDS: REMDESIVIR 100 MG in SODIUM CHLORIDE 0.9% 230 ML IV SCH (11:41)
--- NOTE | 2021-12-14 17:39 | Hospitalist Progress Note ---
Date of Service December 14, 2021 Assessment & Plan (1) Dystonic movements: Plan: On 12/13 was observed to have significant tremors of all 4 limbs. Some movements looked like myoclonic jerks; some looked like severe dystonia. Can't rule out seizure activity but less suspicious for such. EEG shows encephalopathy but does not r/o seizures Can't rule out that some of the behavior was due to agitated delirium (pointing at things in the air, looking at ceiling, etc). This seems to have improved Can't rule out that prior haldol at bedtime is worsening some of his PD symptoms. This has now been stopped Seems much improved today Appreciate Neuro consult by Dr Diallo * stopped haldol; change to seroquel 12.5mg PO HS prn * decrease Sinemet to 0.5 tabs tid * consider adding on keppra 250mg po bid for myoclonic jerks (2) Atrial fibrillation with RVR: Plan: Prior h/o a.fib/flutter in 2018, 2019, etc requiring hospitalization. Had episode of PAF with rates to 180s on 12/11/21; resolved after 5 hours, co nverted back to NSR. Easily was rate controlled with low-dose cardizem infusion. This has been stopped. Cont metoprolol. Previous hospitalist discussed his PAF with cardiology whether to start amiod arone for rhythm control given how fast his PAF episode was (peak 180s). Cardiology advised to hold off for now but if he has another episode to initiate amiodarone then. Minimal troponin elevation was 2nd to myocardial demand ischemia in setting of rapid a.fib. (3) Acute respiratory failure with hypoxia: Plan: Resolved. Stable in RA. 2nd to COVID pneumonia I cannot rule out concomitant, superimposed bacterial pneumonia (elevated procal, etc). Cont supportive care. (4) Pneumonia due to COVID-19 virus: Plan: Improved. completed Remdesivir x 5 days. continnue dexamethasone 6mg IV daily x 10 day course-last day will be 12/19. Due to elevated procal - continue rocephin 2gm IV daily and doxy BID for atypical coverage. Last day will be 12/16 Cont supportive care, pulm toilet w/ flutter valve, etc. Video swallow results noted and care d/w speech therapy. No aspiration noted on study. Defer on aspiration coverage at this time. Repeat AST/ALT in am given the Remdesivir usage. AST minimally elevated and CPK minimally elevated.Now resolved (5) Acute metabolic encephalopathy: Plan: significant 2nd to COVID, hospital psychosis, etc - all in the setting of dementia. Supportive care. Seems to be improving with Seroquel Avoid benzos & sedatives. ammonia level wnl earlier this admission (6) Pancytopenia: Plan: 2nd to COVID infection. Improved. (7) Dementia: Plan: advanced 2nd to PD continue donepezil but consider decreasing dose to 5mg daily due to tremors as per Neuro (8) Parkinson disease: Plan: cont sinemet -Neuro recommended decreasing dose to 0.5 tabs tid due to worsening tremors. there is literature showing that neurological conditions such as PD often have worse symptoms during COVID illness formal neuro consult appreciated cont PT, OT (9) Atrial fibrillation: Plan: see #2 above cont eliquis cont BB (10) Hypertension: Plan: Cont metoprolol and ACEi (11) Hyperlipidemia: Plan: Cont lipitor While on Remdesivir check ast/alt daily Hold terbinafine (is on such for onychomycosis as outpatient) in light of multiple meds that can cause liver inflammation (12) DVT prophylaxis: Plan: Eliquis 5mg BID Plan Dispo-continued stay, improving plan for SNF placement, possibly in next 1-2 days when can be accepted Admission and Anticipated Discharge Date Admission Date: December 07, 2021 Anticipated date of discharge: 12/16/21 Subjective Pt pleasant and awake, eating dinner. Did not know he was in the hospital. Denies SOB. Tele with SB rates 40-50s with some dips in to the 30s with sleeping Review of Systems Review of Systems: Unobtainable due to cognitive status Physical Exam Constitutional: WD/WN, vitals as above Eyes: + anicteric sclerae ENMT: Ears: no hearing impairment Neck: trachea midline, no thyromegaly Respiratory: normal respiratory effort and + cough (with deep breaths) Auscultation: + rhonchi (bilateral at bases); no crackles and no wheezes Cardiovascular: RRR, no murmur, no edema Chest (Breasts): Chest: normal inspection of chest Gastrointestinal (Abdomen): normal bowel sounds, soft, nontender, no hepatosplenomegaly Musculoskeletal: Extremities: extremities normal to inspection; no cyanosis and no clubbing Skin: no rashes, warm and dry Neurologic: moves all extremities and awake; no focal motor deficits Psychiatric: Orientation: alert, oriented to person and cooperative Lymphatic: no lymphedema Results & Data Results & Data ([facility]) Vital Signs (Past 12 Hours) Vital Signs Temp Pulse Pulse Resp BP Pulse Ox O2 Del Method 12/14/21 08:00 72 12/14/21 08:00 Room Air 12/14/21 11:39 36.6 C 47 L 22 137/81 96 Room Air Laboratory Results 12/14/21 12/14/21 Range/Units 09:06 09:06 WBC 10.87 H (4.8-10.8) K/ul RBC 3.81 L (4.63-6.08) M/uL Hgb 11.7 L (14.0-18.0) g/dl Hct 34.5 L (40.1-51.0) % MCV 90.6 (80.0-100.0) fL MCH 30.7 (25.0-34.0) pg MCHC 33.9 (32.0-36.0) g/dL RDW Std Deviation 41.6 (36.4-46.3) fL RDW Coeff of [place] 12.6 (11.5-14.5) % Plt Count 257 (130-400) K/uL MPV 9.9 (9.4-12.4) fL Sodium 140 (136-145) mmol/L Potassium 3.9 (3.5-5.1) mmol/L Chloride 108 H (98-107) mmol/L Carbon Dioxide 25 (21-32) mmol/L Anion Gap 7 (3-11) BUN 29 H (6-23) mg/dl Creatinine 1.00 (0.6-1.4) mg/dl Est Cr Clr Drug Dosing 61.4 ml/min Est GFR ( Amer) 84.4 ml/min Est GFR (Non-Af Amer) 72.8 ml/min BUN/Creatinine Ratio 29.0 H (10-20) Glucose 94 (70-99(Fasting)) mg/dl Calcium 8.2 L (8.5-10.1) mg/dl AST 39 (13-39) U/L ALT 26 (7-52) U/L PG Care Time/CCT Total # of Minutes Spent Total Time Spent with Patient: Total time spent is greater than 50% in coordination of care (as documented) at patient's floor/unit and/or counseling patient: Coding Level of Care Code 75116 Subseq Hosp Care Lvl 2 Diagnoses Dystonic movements G24.9 Atrial fibrillation with RVR I48.91 Acute respiratory failure with hypoxia J96.01 Pneumonia due to COVID-19 virus U07.1; J12.82 Acute metabolic encephalopathy G93.41 Pancytopenia D61.818 Dementia G20; F02.81 Dementia behavioral disturbance: with behavioral disturbance Dementia type: Parkinson's disease Parkinson disease G20 Atrial fibrillation I48.91 Hypertension I10 Hyperlipidemia E78.5 DVT prophylaxis Z29.9 (1) Dementia Dementia behavioral disturbance: with behavioral disturbance Dementia type: Parkinson's disease Qualified Code(s): G20 - Parkinson's disease; F02.81 - Dementia in other diseases classified elsewhere with behavioral disturbance
[2021-12-14] MEDS: DONEPEZIL HCL 10 MG TAB PO SCH (20:13)
[2021-12-14] MEDS: ATORVASTATIN 20 MG TAB PO SCH (20:17)
[2021-12-14] MEDS: MELATONIN 3 MG TAB PO SCH (20:19)
[2021-12-15] MEDS: cefTRIAXone SODIUM 2,000 MG in DEXTROSE 5% 50 ML IV SCH (08:59)
[2021-12-15] MEDS: dexAMETHasone 6 MG in SYRINGE 0 ML IV SCH (09:05)
[2021-12-15] MEDS: CARBIDOPA/LEVODOPA 25/100MG TAB PO SCH ×3 (09:05→20:14)
[2021-12-15] MEDS: DOXYCYCLINE HYCLATE 100 MG CAP PO SCH ×2 (09:06→20:15)
[2021-12-15] MEDS: APIXABAN 5 MG TABLET PO SCH ×2 (09:06→20:15)
[2021-12-15] MEDS: CHOLECALCIFEROL 1,000 UNITS 25 MCG TAB PO SCH ×2 (09:06→20:15)
[2021-12-15] MEDS: METOPROLOL TARTRATE 25 MG TAB PO SCH ×2 (09:07→20:16)
[2021-12-15] MEDS: allopurinoL 100 MG TAB PO SCH (09:08)
[2021-12-15] MEDS: KETOCONAZOLE 2% CR 15 GM TUBE EXT SCH (09:10)
[2021-12-15] MEDS: lisinopril 10 MG TAB PO SCH (09:10)
[2021-12-15 11:18] LABS: Basophils # (auto) 0.01 K/uL (0-0.2); Basophils % (auto) 0.1 %; Eosinophils # (auto) 0.01 K/uL (0-0.50); Eosinophils % (auto) 0.1 %; Hematocrit (blood only) 38.5 % (40.1-51.0); Hemoglobin 13.1 g/dl (14.0-18.0); Immature Granulocytes # (auto) 0.37 K/uL (0.00-0.02); Immature Granulocytes % (auto) 3.9 %; Lymphocytes # (auto) 0.89 K/uL (1.2-3.4); Lymphocytes % (auto) 9.3 %; Mean Corpuscular Hemoglobin 30.5 pg (25.0-34.0); Mean Corpuscular Volume 89.7 fL (80.0-100.0); Mean Platelet Volume 9.6 fL (9.4-12.4); Monocytes # (auto) 0.57 K/uL (0.24-0.82); Monocytes % (auto) 5.9 %; Neutrophils # (auto) 7.74 K/uL (1.4-6.5); Neutrophils % (auto) 80.7 %; Nucleated RBC # (auto) 0.02 K/uL (0-0); Nucleated RBC % (auto) 0.2 %; Platelet Count 323 K/uL (130-400); RDW Coefficient of Variation 12.5 % (11.5-14.5); RDW Standard Deviation 41.1 fL (36.4-46.3); Red Blood Count 4.29 M/uL (4.63-6.08); White Blood Count 9.59 K/ul (4.8-10.8)
[2021-12-15 11:35] LABS: Albumin Globulin Ratio 1.2 (0.9-2); Albumin Level 3.3 gm/dl (3.4-5.0); Bilirubin,Total 0.6 mg/dl (0.2-1.0); C Reactive Protein 3.85 mg/dl (0-0.5); Calcium 8.5 mg/dl (8.5-10.1); Creatinine Clr Calc Pharmacy 68.8 ml/min; Est GFR (African American) 92.1 ml/min; Est GFR (Non-African American) 79.5 ml/min; Globulin 2.7 gm/dl (2.5-4.0); Magnesium 2.1 mg/dl (1.7-2.4)
--- NOTE | 2021-12-15 17:21 | Hospitalist Progress Note ---
Date of Service December 15, 2021 Assessment & Plan (1) Dystonic movements: Plan: On 12/13 was observed to have significant tremors of all 4 limbs. Some movements looked like myoclonic jerks; some looked like severe dystonia. Now improved, only mild myoclonic jerks occasionally as per nursing staff, I have not witnessed this Can't rule out seizure activity but less suspicious for such. EEG shows encephalopathy but does not r/o seizures Can't rule out that some of the behavior was due to agitated delirium (pointing at things in the air, looking at ceiling, etc). This seems to have improved Can't rule out that prior haldol at bedtime is worsening some of his PD symptoms. This has now been stopped Appreciate Neuro consult by Dr Diallo * stopped haldol; changed to seroquel 12.5mg PO HS prn * decreased Sinemet to 0.5 tabs tid * consider adding on keppra 250mg po bid for myoclonic jerks * will decrease donepezil to 5mg hs (2) Atrial fibrillation with RVR: Plan: Prior h/o a.fib/flutter in 2018, 2019, etc requiring hospitalization. Had episode of PAF with rates to 180s on 12/11/21; resolved after 5 hours, converted back to NSR. Easily was rate controlled with low-dose cardizem infusion. This has been stopped. Cont metoprolol. Has some sinus trevor at times Previous hospitalist discussed his PAF with cardiology whether to start amiodarone for rhythm control given how fast his PAF episode was (peak 180s). Cardiology advised to hold off for now but if he has another episode to initiate amiodarone then. Minimal troponin elevation was 2nd to myocardial demand ischemia in setting of rapid a.fib. (3) Acute respiratory failure with hypoxia: Plan: Resolved. Stable in RA. 2nd to COVID pneumonia I cannot rule out concomitant, superimposed bacterial pneumonia (elevated procal, etc). Cont supportive care. (4) Pneumonia due to COVID-19 virus: Plan: Improved. completed Remdesivir x 5 days. continnue dexamethasone 6mg IV daily x 10 day course-last day will be 12/19. Due to elevated procal - continue rocephin 2gm IV daily and doxy BID for atypical coverage. Last day will be 12/16 Cont supportive care, pulm toilet w/ flutter valve, etc. Video swallow results noted and care d/w speech therapy. No aspiration noted on study. Defer on aspiration coverage at this time. Repeat AST/ALT in am given the Remdesivir usage. AST minimally elevated and CPK minimally elevated.Now resolved (5) Acute metabolic encephalopathy: Plan: significant 2nd to COVID, hospital psychosis, etc - all in the setting of dementia. Supportive care. Seems to be improving with Seroquel Avoid benzos & sedatives. ammonia level wnl earlier this admission (6) Pancytopenia: Plan: 2nd to COVID infection. Improved. (7) Dementia: Plan: advanced 2nd to PD continue donepezil but will decrease dose to 5mg daily due to tremors as per Neuro (8) Parkinson disease: Plan: cont sinemet -Neuro recommended decreasing dose to 0.5 tabs tid due to worsening tremors. there is literature showing that neurological conditions such as PD often have worse symptoms during COVID illness formal neuro consult appreciated cont PT, OT (9) Atrial fibrillation: Plan: see #2 above cont eliquis cont BB (10) Hypertension: Plan: Cont metoprolol and ACEi (11) Hyperlipidemia: Plan: Cont lipitor While on Remdesivir check ast/alt daily Hold terbinafine (is on such for onychomycosis as outpatient) in light of multiple meds that can cause liver inflammation (12) DVT prophylaxis: Plan: Eliquis 5mg BID Plan Dispo-doing better, stable for discharge when [facility] can take him Downgrade to med/surg status Admission and Anticipated Discharge Date Admission Date: December 07, 2021 Anticipated date of discharge: 12/16/21 Subjective Pt pleasantly confused. Is eating and drinking. No complaints. Has his soft mitts removed. No events on tele, just sinus bradycardia, down to 30s at times while sleeping Review of Systems Review of Systems: Unobtainable due to cognitive status Physical Exam Constitutional: WD/WN, vitals as above Eyes: + anicteric sclerae ENMT: Ears: no hearing impairment Neck: trachea midline, no thyromegaly Respiratory: normal respiratory effort; no cough Auscultation: lungs clear to auscultation bilaterally Cardiovascular: RRR, no murmur, no edema Chest (Breasts): Chest: normal inspection of chest Gastrointestinal (Abdomen): normal bowel sounds, soft, nontender, no hepatosplenomegaly Musculoskeletal: Extremities: extremities normal to inspection; no cyanosis and no clubbing Skin: no rashes, warm and dry Neurologic: moves all extremities and awake; no focal motor deficits Motor/Sensory: + tremor (some tremor of hands at times, mild) Psychiatric: Orientation: alert, oriented to person and cooperative Lymphatic: no lymphedema Results & Data Results & Data ([facility]) Vital Signs (Past 12 Hours) Vital Signs Temp Pulse Resp BP BP Pulse Ox O2 Del Method 12/15/21 17:12 36.7 C 58 L 19 150/83 H 95 Room Air 12/15/21 10:41 36.4 C L 54 L 20 146/76 H 94 Room Air 12/15/21 08:00 Room Air 12/15/21 07:33 36.7 C 56 L 18 158/90 H 91 Room Air Laboratory Results 12/15/21 12/15/21 Range/Units 10:49 10:49 WBC 9.59 (4.8-10.8) K/ul RBC 4.29 L (4.63-6.08) M/uL Hgb 13.1 L (14.0-18.0) g/dl Hct 38.5 L (40.1-51.0) % MCV 89.7 (80.0-100.0) fL MCH 30.5 (25.0-34.0) pg MCHC 34.0 (32.0-36.0) g/dL RDW Std Deviation 41.1 (36.4-46.3) fL RDW Coeff of [place] 12.5 (11.5-14.5) % Plt Count 323 (130-400) K/uL MPV 9.6 (9.4-12.4) fL Immature Gran % (Auto) 3.9 % Neut % (Auto) 80.7 % Lymph % (Auto) 9.3 % Cannon % (Auto) 5.9 % Eos % (Auto) 0.1 % Baso % (Auto) 0.1 % Neut # (Auto) 7.74 H (1.4-6.5) K/uL Lymph # (Auto) 0.89 L (1.2-3.4) K/uL Cannon # (Auto) 0.57 (0.24-0.82) K/uL Eos # (Auto) 0.01 (0-0.50) K/uL Baso # (Auto) 0.01 (0-0.2) K/uL Immature Gran # (Auto) 0.37 H (0.00-0.02) K/uL Absolute Nucleated RBC 0.02 H (0-0) K/uL Nucleated RBC % (auto) 0.2 % Sodium 139 (136-145) mmol/L Potassium 4.0 (3.5-5.1) mmol/L Chloride 104 (98-107) mmol/L Carbon Dioxide 30 (21-32) mmol/L Anion Gap 5 (3-11) BUN 27 H (6-23) mg/dl Creatinine 0.93 (0.6-1.4) mg/dl Est Cr Clr Drug Dosing 68.8 ml/min Est GFR ( Amer) 92.1 ml/min Est GFR (Non-Af Amer) 79.5 ml/min BUN/Creatinine Ratio 29.0 H (10-20) Glucose 110 H (70-99(Fasting)) mg/dl Calcium 8.5 (8.5-10.1) mg/dl Magnesium 2.1 (1.7-2.4) mg/dl Total Bilirubin 0.6 (0.2-1.0) mg/dl AST 28 (13-39) U/L ALT 49 (7-52) U/L Alkaline Phosphatase 57 (34-104) U/L C-Reactive Protein 3.85 H (0-0.5) mg/dl Total Protein 6.0 (6.0-8.3) gm/dl Albumin 3.3 L (3.4-5.0) gm/dl Globulin 2.7 (2.5-4.0) gm/dl Albumin/Globulin Ratio 1.2 (0.9-2) PG Care Time/CCT Total # of Minutes Spent Total Time Spent with Patient: Total time spent is greater than 50% in coordination of care (as documented) at patient's floor/unit and/or counseling patient: Coding Level of Care Code 75578 Subseq Hosp Care Lvl 2 Diagnoses Dystonic movements G24.9 Atrial fibrillation with RVR I48.91 Acute respiratory failure with hypoxia J96.01 Pneumonia due to COVID-19 virus U07.1; J12.82 Acute metabolic encephalopathy G93.41 Pancytopenia D61.818 Dementia G20; F02.81 Dementia behavioral disturbance: with behavioral disturbance Dementia type: Parkinson's disease Parkinson disease G20 Atrial fibrillation I48.91 Hypertension I10 Hyperlipidemia E78.5 DVT prophylaxis Z29.9 (1) Dementia Dementia behavioral disturbance: with behavioral disturbance Dementia type: Parkinson's disease Qualified Code(s): G20 - Parkinson's disease; F02.81 - Dementia in other diseases classified elsewhere with behavioral disturbance
[2021-12-15] MEDS: ATORVASTATIN 20 MG TAB PO SCH (20:15)
[2021-12-15] MEDS: MELATONIN 3 MG TAB PO SCH (20:19)
[2021-12-15] MEDS ORDERED: DONEPEZIL HCL 5 MG TAB PO SCH (21:00)
[2021-12-16] MEDS: allopurinoL 100 MG TAB PO SCH (08:03)
[2021-12-16] MEDS: lisinopril 10 MG TAB PO SCH (08:03)
[2021-12-16] MEDS: KETOCONAZOLE 2% CR 15 GM TUBE EXT SCH (08:03)
[2021-12-16] MEDS: CARBIDOPA/LEVODOPA 25/100MG TAB PO SCH ×2 (08:04→14:54)
[2021-12-16] MEDS: METOPROLOL TARTRATE 25 MG TAB PO SCH (08:05)
[2021-12-16] MEDS: CHOLECALCIFEROL 1,000 UNITS 25 MCG TAB PO SCH (08:05)
[2021-12-16] MEDS: APIXABAN 5 MG TABLET PO SCH (08:05)
[2021-12-16] MEDS: DOXYCYCLINE HYCLATE 100 MG CAP PO SCH (08:05)
[2021-12-16] MEDS: cefTRIAXone SODIUM 2,000 MG in DEXTROSE 5% 50 ML IV SCH (08:26)
[2021-12-16] MEDS: dexAMETHasone 6 MG in SYRINGE 0 ML IV SCH (08:28)
--- NOTE | 2021-12-16 16:54 | Discharge Summary ---
Date of Service December 16, 2021 Admission HPI Per Admitting Provider Patient is a 76-year-old male with a past medical history of atrial fibrillation, hyperlipidemia, hypertension, Parkinson dementia, and gout presenting to the the emergency room due to a fall and confusion. Due to the patient's advanced dementia, patient is a poor historian and most of the HPI is obtained by his and son. reports that patient was outside for long period time and when she had gone to go see where he was, she had found that he was lying in the grass and is not sure how long he was lying there. This discovery was made around 4 PM. She reports he could have been lying there anywhere from 20 minutes to 1 hour. She reports that his baseline is that he typically does not know where he is, what time of day it is, or what day of the week it is, however, he is aware of self. reports to me that today was overall normal and he was eating and drinking without difficulty. She reports that he has not been complaining of any fevers, chills, chest pain, shortness of breath, nausea, vomiting, or urinary complaints. reports to me that he has been having multiple years of cognitive and physical decline due to his Parkinson disease. and son have noted, however, over the past couple days there has been some worsening in his mobility and has had to use a wheelchair at home. Patient does not speak very much, ever, he was able to report to me that he feels fine and is not having any pain anywhere. Otherwise has no complaints. ED course: Patient arrived confused and with a fever of 39.[address] of the head which was negative. Chest x-ray had showed cardiomegaly without any acute pathologies. EKG showed sinus rhythm. CBC, CMP, troponin, procalcitonin, Lyme titer, lactate, magnesium, and PT/INR all returned within normal limits. Urinalysis was pending at the time of writing this note. Patient received a liter bolus of IV fluid, Tylenol, and a dose of cefepime which resolved the fever. Principal Diagnosis COVID-19, Acute respiratory failure with hypoxia, Tremors Discharge Exam Constitutional WD/WN, vitals as above Eyes + anicteric sclerae ENMT Ears: no hearing impairment Neck trachea midline, no thyromegaly Respiratory normal respiratory effort; no cough Auscultation: lungs clear to auscultation bilaterally and + rhonchi (bilateral at bases); no crackles and no wheezes Cardiovascular RRR, no murmur, no edema Chest (Breasts) Chest: normal inspection of chest Gastrointestinal (Abdomen) normal bowel sounds, soft, nontender, no hepatosplenomegaly Musculoskeletal Extremities: extremities normal to inspection; no cyanosis and no clubbing Skin no rashes, warm and dry Neurologic moves all extremities and awake; no focal motor deficits Motor/Sensory: + tremor (some tremor of hands at times, mild) Psychiatric Orientation: alert, oriented to person and cooperative Lymphatic no lymphedema Discharge Data Allergies Allergy/AdvReac Type Severity Reaction Status Date / Time shellfish derived AdvReac Unknown D/T Verified 12/07/21 19:46 GOUT--DOESN'T EAT. Consultations 12/07/21 19:31 ED Decision to Admit Stat 12/13/21 19:19 Consult Neurology Routine Ordered Studies 12/07/21 17:53 CT head/brain wo con Stat 12/10/21 14:00 FL video swallow Routine Hospital Course (1) Dystonic movements: On 12/13 was observed to have significant tremors of all 4 limbs. Some movements looked like myoclonic jerks; some looked like severe dystonia. Now significantly improved, only mild myoclonic jerks occasionally as per nursing staff and occasional mild resting tremor Can't rule out seizure activity but less suspicious for such. EEG shows encephalopathy but does not r/o seizures Can't rule out that some of the behavior was due to agitated delirium (pointing at things in the air, looking at ceiling, etc). This seems to have improved Can't rule out that prior haldol at bedtime is worsening some of his PD symptoms. This has now been stopped Appreciate Neuro consult by Dr Diallo * stopped haldol; changed to seroquel 12.5mg PO HS prn * decreased Sinemet to 0.5 tabs tid * consider adding on keppra 250mg po bid for myoclonic jerks * decreased donepezil to 5mg hs (2) Atrial fibrillation with RVR: Prior h/o a.fib/flutter in 2019, 2020, etc requiring hospitalization. Had episode of PAF with rates to 180s on 12/11/21; resolved after 5 hours, converted back to NSR. Easily was rate controlled with low-dose cardizem infusion. This has been stopped. Cont metoprolol. Has some sinus trevor at times Previous hospitalist discussed his PAF with cardiology whether to start amiodarone for rhythm control given how fast his PAF episode was (peak 180s). Cardiology advised to hold off for now but if he has another episode to initiate amiodarone then. Minimal troponin elevation was 2nd to myocardial demand ischemia in setting of rapid a.fib. continue ELiquis for anticoagulation (3) Acute respiratory failure with hypoxia: Resolved. Stable in RA. 2nd to COVID pneumonia I cannot rule out concomitant, superimposed bacterial pneumonia (elevated procal, etc). (4) Pneumonia due to COVID-19 virus: Improved. completed Remdesivir x 5 days. continnue dexamethasone 6mg daily x 10 day course-last day will be 12/19. Due to elevated procal - completed course of rocephin 2gm IV daily and doxy BID for atypical coverage Video swallow results noted and care d/w speech therapy. No aspiration noted on study. AST minimally elevated and CPK minimally elevated.Now resolved follow CXR to resolution in 4-6 weeks (5) Acute metabolic encephalopathy: significant and now [facility] improved 2nd to COVID, hospital psychosis, etc - all in the setting of dementia. Supportive care. Seems to be improving with Seroquel Avoid benzos & sedatives. ammonia level wnl earlier this admission (6) Pancytopenia: 2nd to COVID infection. Improved. (7) Dementia: advanced 2nd to PD continue donepezil but will decrease dose to 5mg daily due to tremors as per Neuro (8) Parkinson disease: cont sinemet -Neuro recommended decreasing dose to 0.5 tabs tid due to worsening tremors. there is literature showing that neurological conditions such as PD often have worse symptoms during COVID illness formal neuro consult appreciated cont PT, OT (9) Atrial fibrillation: see #2 above cont eliquis cont BB (10) Hypertension: Cont metoprolol and ACEi (11) Hyperlipidemia: Cont lipitor (12) DVT prophylaxis: Eliquis 5mg BID Plan Dispo-doing better, stable for discharge to [facility] Total Time Total Time Spent Total Time Spent (In Minutes): 35 min Discharge Plan Discharge Items Patient Disposition: Transfer Inpatient Rehab Fac Reason For Visit: CONFUSION Discharge Diagnosis: COVID-19, Hypoxia, Tremors, Pneumonia Condition on Discharge: Fair Activity: Resume your previous activity Non-emergency contact: Primary Care Provider Call non-emergency contact if: you have any medication questions and your symptoms worsen Follow-up/Referrals: Ankush Esteves MD [Primary Care Provider] - Diet: Regular Liquid Consistency: [place] thick Diet Comment: Minced and moist Addtl Attending Provider Instructions: Finish out 3 more days of dexamethasone for your COVID-19 with hypoxia. You completed all the antibiotics for pneumonia. You had some medication adjustments made due to your tremors and had great improvements. You did have some rapid atrial fibrillation but this resolved spontaneously. Pending Studies at Discharge: No Stand-Alone Forms: My [facility] Skilled Items Patient informed of condition?: Yes DNR: Yes Discharge Level of Care: Acute rehab Communicable Disease: Yes (COVID-19) Discharge Prognosis: Improving Lines: None Urinary Catheter: No Medications and DC Order Prescriptions: New donepezil 5 mg Tablet 5 mg PO HS Qty: 30 0RF quetiapine 25 mg Tablet 12.5 mg PO HS PRN (Reason: agitation) Qty: 15 0RF melatonin 3 mg Tablet 3 mg PO HS Qty: 30 0RF dexamethasone 6 mg tablet 6 mg PO DAILY Qty: 3 0RF Continued cholecalciferol (vitamin D3) 50 mcg (2,000 unit) capsule 50 mcg PO BID 90 Days Qty: 180 1RF metoprolol succinate 50 mg tablet extended release 24 hr 50 mg PO DAILY Qty: 90 1RF Eliquis 5 mg tablet 5 mg PO BID Qty: 180 3RF allopurinol [Zyloprim] 100 mg tablet 100 mg PO DAILY Qty: 90 3RF atorvastatin [Lipitor] 20 mg tablet 20 mg PO QPM Qty: 90 3RF lisinopril 10 mg tablet 10 mg PO DAILY Qty: 90 3RF ketoconazole 2 % cream 1 applic topical DAILY Rx Instructions: Apply to the affected areas--LEFT HAND, LEFT INNER THIGH, RIGHT KNEE AREAS. terbinafine HCl 250 mg tablet 250 mg PO QPM Changed carbidopa-levodopa 25-100 mg tablet 0.5 tab PO TID Qty: 270 4RF Discontinued donepezil 10 mg tablet 10 mg PO HS 90 Days Qty: 90 4RF Discharge Orders: Discharge Order (Routine); Ordered 12/16/21 Ordered By: Tiffanie Nicole Admission Data Admit Date/Time: 12/07/21 20:52 Attending Provider: Tiffanie Nicole Admit Provider: Miguelito Storm Primary Care Provider: Ankush Esteves Other Providers: Chase Watt ; [facility] ; Carson Laurent ; Raffi Diallo Other Interventions: Discharge Summary Assessment (RN) Last Done: 12/16/21 17:10 Coding Level of Care Code D/C DAY MANAGEMENT >30 MINS Diagnoses Dystonic movements G24.9 Atrial fibrillation with RVR I48.91 Acute respiratory failure with hypoxia J96.01 Pneumonia due to COVID-19 virus U07.1; J12.82 Acute metabolic encephalopathy G93.41 Pancytopenia D61.818 Dementia G20; F02.81 Dementia behavioral disturbance: with behavioral disturbance Dementia type: Parkinson's disease Parkinson disease G20 Atrial fibrillation I48.91 Hypertension I10 Hyperlipidemia E78.5 DVT prophylaxis Z29.9
== END 2021-12-16 17:39 | DRG 871 ==
LOC: ED 17:34 → SUATTDRO 20:52 → EDINP 20:52 → 2N 12-08 09:20 → 1E 12-11 19:26 → 2S 12-13 07:48